=== PATIENT | male | born 1950 | race Caucasian/White ===

== ENCOUNTER 2019-09-27 06:23 | Day surgery (SDC) | payer OTHER, SELFPAY ==
[2019-09-27] VITALS (13 sets, daily range): BP systolic 132–175; BP diastolic 59–98; PULSE 48–71; RESP 12–18; TEMP 36.1–36.7; O2SAT 92–98; BMI 28.1
[2019-09-27] MEDS: sodium chloride 0.9% 1,000 ML 30 ML IV (07:20)
--- NOTE | 2019-09-27 08:13 | ANES.PREANE2 ---
Pre-Anesthetic Assessment Pre-Anesthetic Assessment: Height/Weight: Height 1.78 m Weight 88.904 kg Temp Pulse Resp BP Pulse Ox 98.0 F 64 18 158/98 98 09/27/19 07:07 09/27/19 07:07 09/27/19 07:07 09/27/19 07:07 09/27/19 07:07 Preop Diagnosis: Left inguinal hernia Proposed Procedure: Operation Date: 09/27/19 08:15 Proposed Procedures p Laparoscopic Inguinal Hernia Repair w/Mesh poss open 79547 K40.90(Left) - Prosper Gooden MD Last intake: Intake Last Liquid Date 09/26/19 Last Liquid Time 18:30 Last Solid Date 09/26/19 Last Solid Time 18:30 Social: Social History: Tobacco Pack years: 16 Comment: quit 40 y Exam: Pre-Anes Outpt Exam: alert, oriented x 3, clear to auscultation bilaterally and regular rate & rhythm Airway: Submandibular: WNL Cervical ROM: WNL MP: 1 CV/HEM: CV/HEM: HTN Comments: 2 blocks/2 FOS without angina/[place] Metabolic: Metabolic: Hyperlipidemia Musc/skel: Musc/skel: Lower Back Pain Comments: bilateral radiculopathy Anesthetic Plan: ASA status: 2 Anesthesia: General Meds/Allergies Current Medications: Current Medications Generic Name Dose Route Start Last Admin Trade Name Solomonq PRN Reason Stop Dose Admin Sodium Chloride 1,000 mls @ 30 ml s/hr 09/27/19 06:30 09/27/19 07:20 Sodium Chloride 0.9% IV 09/28/19 06:29 30 mls/hr .Q24H LUANNE Administration PFSH Anesthesia PFSH: Social History Smoking and tobacco status: never smoked Second hand smoke exposure: No Alcohol intake: never Adopted: No Caregiver/support person: No Lives independently: Yes Household members: spouse Housing: House Marital status: service: Yes Current occupational status: retired Current occupational exposures/hazards: No Pets and animals: No History of recent travel: No Sexually active: No Current gender identity: Male Roya/Yazidi: Mandaeism Special roya needs: No Agree to transfusion: No Financial difficulty paying for basics: Decline to Answer Data Anesthesia Cardiac Studies: No Data to Display
--- NOTE | 2019-09-27 08:14 | PM.HPUD ---
H&P update H&P Update: DATE OF SURGERY/PROCEDURE: 09/27/19 DATE H&P PERFORMED: 09/19/19 H&P UPDATE INFORMATION: H&P completed within last 30 days and No changes to prior documentation PREOP DIAGNOSIS: Left inguinal hernia PLANNED PROCEDURE: Operation Date: 09/27/19 08:15 Proposed Procedures p Laparoscopic Inguinal Hernia Repair w/Mesh poss open 33216 K40.90(Left) - Prosper Gooden MD Full H&P Medications/Allergies: Current Medications: Current Medications Generic Name Dose Route Start Last Admin Trade Name Freq PRN Reason Stop Dose Admin Sodium Chloride 1,000 mls @ 30 ml s/hr 09/27/19 06:30 09/27/19 07:20 Sodium Chloride 0.9% IV 09/28/19 06:29 30 mls/hr .Q24H LUANNE Administration Perinent History: Medical/Surgical History: Medical History (Updated 09/19/19 @ 09:14 by Prosper Gooden MD) Hearing loss (Acute) Hyperlipidemia (Acute) Hypertension (Acute) Left inguinal pain (Acute) Family History: Family History (Updated 09/19/19 @ 08:40 by Azalia Clark RN) Denies family history of Anesthesia complication Bleeding disorder Social History: Social History Smoking and tobacco status: never smoked Second hand smoke exposure: No Alcohol intake: never Adopted: No Caregiver/support person: No Lives independently: Yes Household members: spouse Housing: House Marital status: service: Yes Current occupational status: retired Current occupational exposures/hazards: No Pets and animals: No History of recent travel: No Sexually active: No Current gender identity: Male Roya/Scientology: Yarsani Special roya needs: No Agree to transfusion: No Financial difficulty paying for basics: Decline to Answer
[2019-09-27] MEDS: lidocaine 2% INJ 20 mL INJECTION (09:27)
--- NOTE | 2019-09-27 10:24 | P.OP_ITS ---
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 Indications risks benefits and alternatives were all discussed with the Informed consent per chart Procedure: Transabdominal preperitoneal (GABRIELLE) approach. Patient was identified in the holding area ,patient was transferred to the operating room where he was placed in supine position, with both arms were tucked, antibiotic was given with induction, endotracheal tube was placed per anesthesia, Moreland catheter was inserted by the circulating nurse and revealed clear urine, prep and drape of the abdomen was done under the usual sterile technique as well as the scrotal area. Time-out was done verifying the patient's name/date of /planned procedure destination after the procedure, all were in agreement. SCDs confirmed to be functioning, preoperative antibiotics administered per protocol, and beta uday protocol was confirmed. A vertical skin incision of 1.2 cm was made with 11 blade knife through the Infraumbilicus , incision was carried down to the subcutaneous tissue and deepened to identify the anterior fascia, two stay sutures were applied to the fascia, and safe entrance to the abdominal cavity was achieved, a Franks trocar technique safe entry to the abdominal cavity was achieved verified by using 10 mm zero degree laparoscopy, switched to a 30 degrees scope,low flow followed by a higher flow of CO2 gas up to 15 mmHg. There was no evidence of injury to intra-abdominal structures from the port entry, attention was deviated to both groins, there was evidence of pelvic intra-abdominal adhesions Patient was placed in Trendelenburg position then Two 5 mm ports were placed on the right and left lateral aspect of the abdomen slightly above the level of the umbilicus, under direct visualization, anesthesia 2% lidocaine local was injected at all trocar sites prior to incisions. Patient was noticed to have left inguinal hernia and no evidence of hernia on the right side The peritoneum above the level of the iliopubic tract was incised to the right of the midline and dissection was performed to create a preperitoneal space medial to lateral aspect up to anterior superior iliac spine on the left side.Dissection was continued onto the medial aspect and the left spermatic was identified, there was evidence of indirect inguinal hernia .the sac was dissected. As it applied medial to the left inferior epigastric vessels/ dissection was performed to clear the space lateral to the spermatic cord and dorsomedial to it, the hernia sac was reduced and retracted far back there was a small direct hernia component and a large lipoma of the cord that was excised as well and sent for pathology. Then a medial left 3-D mesh large size was rolled and placed into the abdominal cavity through the Franks port, after the mesh was introduced it was positioned to lie in the myopectineal orifice and the mesh was unrolled and this covered the entire my myope pectineal orifice. Intra-abdominal pressure was dropped to 12 mmHg to help placement of the mesh good position On the lateral aspect of the mesh extended up to the anterior superior iliac spine on the medial aspect the mesh crossed the midline onto the right side, then using absorbable tacks, placed above the iliopubic tract onto the rectus abdominis muscle on the medial aspect and also to the lateral abdominal wall superomedial to the sacroiliac spine, then the mesh was also anchored to the pubis and the Zechariah's ligament inferiorly. The peritoneal leaflets were then brought together to cover the mesh and isolated from the other viscera, extra tacks were used to secure the peritoneum in good position. Final look demonstrated good hemostasis and the mesh in good position A total of 20 mL Exparel 40 ml Normal saline 20 ml bupivacaine 0.25% were injected at the remaining of the tacks site and trocar sites as well Final look demonstrated good hemostasis, then the abdomen was desufflated while holding the peritoneum to make sure there is no herniation blue the mesh. All ports were removed. Then the fascia on the supra umbilical fascial defect was closed using 0 Vicryl under direct visualization using fascial closure device Ricardo Maxwell. All skin incisions were closed with 4-0 Monocryl subcuticular suture and Dermabond was applied. The patient tolerated the procedure well, Moreland catheter was taken out ,got extubated and was transferred to the recovery area in stable condition, scrotal support was applied. All counts of instruments, needles and sponges were completed I was present for the whole entire procedure
--- NOTE | 2019-09-27 10:49 | SUR.PHASEI ---
6019 PATIENT TO PACU AT THIS TIME. PATIENT FLAILING ARMS, OPENS EYES TO VERBAL STIMULI. REPORTS PAIN. 3 INCISION TO ABDOMEN, CLOSED WITH EXOFIN. SCROTAL SUPPORT IN PLACE.
[2019-09-27] MEDS: morphine 4 mg/mL SDV 1 mL 2 MG IVP (10:54)
[2019-09-27] MEDS: ondansetron 2 mg/ML SDV 2 mL 4 MG IVP (10:55)
--- NOTE | 2019-09-27 11:22 | SUR.PHASEI ---
1118 PATIENT TO OPS. RATES PAIN 4/10, WANTS TO TAKE A PAIN PILL IN OPS. PATIENT NAUSEA IMPROVED. TOLERATING ICE CHIPS WELL. INCISIONS TO ABDOMEN, CLOSED, CDI. SCROTAL SUPPORT IN PLACE.
[2019-09-27] MEDS: HYDROcodone-acetaminophen 5-325 mg Tablet 1 TAB PO (12:08)
== END 2019-09-27 13:03 | disposition home or self-care (01) ==
PROVIDERS: Family Provider Family Medicine; PCP Nurse Practitioner; Visit Provider Surgery
PROC: (CPT 49650; principal; 2019-09-27 08:15)
DX: K40.90 Unilateral inguinal hernia, without obstruction or gangrene, not specified as recurrent (principal); D17.6 Benign lipomatous neoplasm of spermatic cord; E78.5 Hyperlipidemia, unspecified; Z87.891 Personal history of nicotine dependence; Z79.82 Long term (current) use of aspirin
CPT/HCPCS: 49650; 55559; 12345; 51702; 88304; 96365; C1781; C9290; J0131; J0690; J2001; J2270; J2405; J2704; J2710; J3010; J3490; J7030

== ENCOUNTER 2019-09-27 18:16 | Emergency (ER) | payer OTHER, SELFPAY ==
[2019-09-27 18:45] VITALS: BP 168/93; PULSE 65; RESP 16; TEMP 36.7; O2SAT 95; BMI 27.2
--- NOTE | 2019-09-27 18:55 | ED_ITS ---
Entered by Cisco Lazcano LPN, acting as scribe for Stuart Talavera MD HPI - Male Genitourinary General: Chief complaint: Urogenital-Male Stated complaint: UNABLE TO URINATE, INGUINAL HERNIA REPAIR THIS AM Time Seen by Provider: 09/27/19 18:55 Source: patient Mode of arrival: wheelchair Limitations: no limitations History of Present Illness: HPI Narrative: 69 yo male presents after laparoscopic left inguinal hernia repair earlier today with Dr. Gooden with c/o difficulty voiding. He left the hospital about 1300 this afternoon. The first time he voided after leaving the hospital today there was a large blood clot in his urine. He reports pain with any urination, is only dribbling urine. He has abd discomfort. Complaint: dysuria Associated symptoms: Reports dysuria; Deny nausea or vomiting Review of Systems Const: Denies: fever, chills, body aches or change in appetite Eyes: Denies: blurry vision or eye discomfort ENMT: Denies: throat pain or dental pain Card: Denies: chest pain Resp: Denies: shortness of breath GI: Reports: abdominal pain; Denies: nausea, vomiting or diarrhea : Reports: difficulty urinating, painful urination and urinary dribbling Musc: Denies: neck pain or back pain Skin/Breast: Denies: rash Neuro: Denies: headache Psych: Denies: depression Lior/Lymph: Denies: easy bruising All/Imm: Denies: hives PFSH ED PFSH: Statuses (acute, chronic, etc) shown below reflect problem list status as previously entered and may not be historically accurate Social History Smoking and tobacco status: former smoker Second hand smoke exposure: No Alcohol intake: never Adopted: No Caregiver/support person: No Lives independently: Yes Household members: spouse Housing: House Marital status: service: Yes Current occupational status: retired Current occupational exposures/hazards: No Pets and animals: No History of recent travel: No Sexually active: No Current gender identity: Male Roya/Christian: Hindu Special roya needs: No Agree to transfusion: No Financial difficulty paying for basics: Decline to Answer Physical Exam Const: COMMON NORMALS: no apparent distress, oriented x3 and healthy appearing HENMT: COMMON NORMALS: normocephalic and head/scalp atraumatic HEAD & SCALP: normocephalic and atraumatic Eye: COMMON NORMALS: PERRL and EOMs intact bilaterally PUPIL: Yes PERRL Neck/C-Spine: COMMON NORMALS: full ROM and supple Chest: COMMONS NORMALS: inspection of chest normal and palpation of chest normal Resp: COMMON NORMALS: normal respiratory effort, no retractions, no use of accessory muscles and clear to auscultation bilaterally AUSCULTATION: clear to auscultation bilaterally Cardio: COMMON NORMALS: regular rate, regular rhythm and no murmurs RATE: regular rate RHYTHM: regular rhythm GI: COMMON NORMALS: soft to palpation PALPATION: Yes soft and Yes tender (mild, lower abd) Extremity: COMMON NORMALS: normal to inspection and full ROM Neuro: COMMON NORMALS: oriented x3, moves all extremities and no focal motor deficits Psych: COMMON NORMALS: mental status grossly normal, thought process normal and cooperative THOUGHT PROCESS: normal thought process Skin: COMMON NORMALS: no rashes or lesions noted and no wounds GENERAL SKIN EXAM: no rashes or lesions noted Course Vital Signs: Vital signs: Vital Signs Temperature 98.1 F 09/27/19 18:45 Pulse Rate 59 L 09/27/19 19:49 Respiratory Rate 16 09/27/19 19:49 Blood Pressure 153/75 09/27/19 19:49 Pulse Oximetry 96 09/27/19 19:49 MDM - Male MDM Narrative: Medical decision making narrative: Patient had a large amount of urine after Moreland placement. He feels much improved and has no pain currently. Patient is well-appearing here and abdominal exam is benign. He is stable for discharge and leg bag was placed. He is to follow-up in 2 to 3 days and return if worsening. Patient understands and agrees to the plan. Lab Data: Labs: Lab Results 09/27/19 Range/Units 19:18 Urine Color Yellow (Yellow) Urine Appearance Clear (CLEAR) Urine pH 6.5 (5-7) Ur Specific Gravit y 1.010 (1.005-1.030) Urine Protein Neg (Negative) Urine Glucose (UA) Norm (Normal) Urine Ketones Negative (Negative) Urine Occult Blood 2+ H (Negative) Urine Nitrate Negative (Negative) Urine Bilirubin Neg (NEGATIVE) Urine Urobilinogen Norm (Negative) mg/dL Ur Leukocyte Tania ase Negative (Negative) Urine RBC 15-25 H (0-2) /hpf Urine WBC 0-4 H (0-5) /hpf Ur Squamous Epith Cells None (0-5) Urine Bacteria Trace (NONE) Urine Mucus 1+ Discharge Plan Discharge Patient Disposition: Home, Self-Care Clinical Impression: Acute urinary retention Condition: Stable Prescriptions: No Action losartan 50 mg tablet 25 mg PO BID RF: 0 tramadol 50 mg tablet 50 mg PO QID PRN (Reason: Pain) RF: 0 cholecalciferol (vitamin D3) 2,000 unit tablet 2,000 unit PO QDAY RF: 0 Leary 5-325 mg tablet 1 tab PO Q6H PRN (Reason: pain) Qty: 20 RF: 0 Discharge Orders: Discharge Order (Routine); Ordered 09/27/19 Ordered By: Stuart Talavera Referrals: Kofi Randall MD [Physician] - Bertha Beyer FNP [Primary Care Provider] - Faheem Garcia MD [Family Provider] - Discharge Diet: Advance as tolerated Discharge Activity: Resume usual activity Patient Instructions: Urinary Retention in Men (ED) Discharge Date/Time: 09/27/19 19:59 Coding Level of Care Code ED Dopster for Chg Fwd Exam Problem Focused The documentation recorded by the Jaleesa ross Dani Elizabeth, LPN, accurately reflects the service I personally performed and the decisions made by Ilan loyd Korby, MD Sep 27, 2019 18:16
[2019-09-27 19:22] VITALS: BP 176/97; PULSE 65; RESP 16; O2SAT 96
[2019-09-27 19:31] LABS: Add Urine Microscopic? YES; Bilirubin Urine Neg (NEGATIVE); Blood Urine 2+ (Negative); Glucose Urine UA Norm (Normal); Ketones Urine Negative (Negative); Leukocyte Esterase Urine Negative (Negative); Nitrate Urine Negative (Negative); Protein Urine Neg (Negative); Urine Appearance Clear (CLEAR); Urine Color Yellow (Yellow); Urobilinogen Urine Norm (Negative); pH Urine 6.5 (5-7)
[2019-09-27 19:37] LABS: Add Urine Culture? Yes; Bacteria Urine TRACE; Mucus Urine 1+; RBC Urine 15-25 /hpf (0-2); WBC Urine 0-4 /hpf (0-5)
--- NOTE | 2019-09-27 19:48 | PC.NURSE ---
patient changed from floyd to leg bad per Dr. Talavera order
[2019-09-27 19:49] VITALS: BP 153/75; PULSE 59; RESP 16; O2SAT 96
--- NOTE | 2019-09-30 08:47 | DCPLANNER ---
booking manager had message to schedule a follow up appointment for patient with Dr. Randall. booking manager called the office of Dr. Randall, spoke with Kena, gave clinic patients information. booking manager was told that patients information would be printed and given to Joselin for review. booking manager [facility], and informed her that the patient needed a followup appointment with Dr. Randall. booking manager was told that the consult had been placed and the [facility] should be calling to [facility] an appointment. booking manager called Dr. Carrillo office and let them know that the [facility] should [facility] calling to schedule that appointment.
--- NOTE | 2019-10-11 10:18 | DCPLANNER ---
Patient has a follow up appointment scheduled for , October 13, 2019 at 2:15, patient is aware of appointment.
--- NOTE | 2019-10-27 09:28 | DCPLANNER ---
Patient attended appointment scheduled for 10.13.[address] Randall.
== END 2019-09-27 19:59 | disposition home or self-care (01) ==
PROVIDERS: Emergency Provider Emergency Medicine; Family Provider Family Medicine; PCP Nurse Practitioner
DX: R33.9 Retention of urine, unspecified (principal); Z87.891 Personal history of nicotine dependence
CPT/HCPCS: 51702; 81001; 87086; 99282; 99283

== ENCOUNTER 2019-10-04 09:45 | Outpatient (CLI) | payer OTHER, SELFPAY | END 2019-10-04 09:46 | disposition home or self-care (01) | LOC: LAB 09:48 | PROVIDERS: Family Provider Family Medicine; PCP Nurse Practitioner; Visit Provider Surgery | DX: Z76.89 Persons encountering health services in other specified circumstances (principal) ==

== ENCOUNTER → 2019-10-13 14:29 | Outpatient (BNVA) | payer OTHER, SELFPAY | PROVIDERS: Family Provider Family Medicine; PCP Nurse Practitioner; Visit Provider Nurse Practitioner Family | DX: R33.9 Retention of urine, unspecified (principal); Z80.42 Family history of malignant neoplasm of prostate | CPT/HCPCS: 81001 ==

== ENCOUNTER → 2020-02-15 13:51 | Outpatient (BNVA) | payer OTHER, SELFPAY | PROVIDERS: Family Provider Family Medicine; PCP Nurse Practitioner; Visit Provider Urology | DX: Z80.42 Family history of malignant neoplasm of prostate (principal); R33.9 Retention of urine, unspecified | CPT/HCPCS: 81001 ==

== ENCOUNTER 2020-10-30 12:00 | Emergency (ER) | payer OTHER, MEDICARE, SELFPAY ==
[2020-10-30 12:05] VITALS: BP 145/85; PULSE 103; RESP 18; TEMP 36.6; O2SAT 98; BMI 28.5
--- NOTE | 2020-10-30 12:15 | CT_ITS ---
WS: [id number] CT ABDOMEN PELVIS TECHNIQUE: Contrast-enhanced CT of the abdomen and pelvis with coronal and sagittal reformatted image s. CLINICAL INFORMATION: abd pain COMPARISON: None. DLP: 1673.[address] scans at [facility] use at least one of these dose optimization techniques: automat ed exposure control; mA and/or kV adjustment per patient size (includes targeted exams where dose is matched to clinical indication); or iterative reconstruction. FINDINGS: Lung bases are well aerated. Normal liver. Normal portal vein and splenic vein. Normal gallbladder. N ormal spleen. Small esophageal hiatal hernia. Adrenal glands are normal. Normal renal parenchymal enh ancement. No hydronephrosis. Small left renal cyst measuring 9.4 mm. Additional lower pole left renal cyst measuring 17 mm. Normal pancreas. Splenic artery calcification. Normal caliber abdominal aorta. Aortic calcification. No abdominal lymphadenopathy. Enlarged prostate with calcification measuring 4.7 CM. Sigmoid diverticulosis. Mild diffuse thickenin g of the sigmoid colon with mild induration consistent with mild acute diverticulitis. No drainable a bscess or fluid collection. No evidence of bowel obstruction. Tiny fat-containing umbilical hernia. CT/CT abdomen pelvis w con* [id number] IMPRESSION: 1. Sigmoid diverticulosis with mild sigmoid thickening consistent with mild or early acute diverticulitis. 2. No drainable abscess or fluid collection. 3. Enlarged prostate measuring 4.7 CM. Recommend correlation PSA. Notified Zhang Vazquez DO at 10/30/2020 2:14 PM.
[2020-10-30 12:26] VITALS: BP 163/106; PULSE 91; RESP 15; O2SAT 94
--- NOTE | 2020-10-30 12:31 | W.ED.GIBLEED ---
HPI - GI Bleed General: Chief complaint: GI Bleed Stated complaint: ABD PAIN/BLOOD IN STOOL/HERE YESTERDAY Time Seen by Provider: 10/30/20 12:13 History of Present Illness: HPI Narrative: 70 year old male presents to the ED with a 4 day history of blood in stool that began 6 days ago. He states his bowel movements are solid with melena. He states he also had some abdominal tenderness during these episodes. He denies any NSAID use or vomiting. He denies any abdominal pain at this time. He states his last colonoscopy was 10 years at [place] with findings of a benign polyp. He states having chest tightness while doing mild exertional work this morning that radiated into both shoulders. Chest pain not present at time of visit. MD complaint: melena and blood streaked stool (10/24-10/27) Onset (ago): day(s) Pain Consistency: now resolved Associated symptoms: Reports abdominal pain (during episodes); Denies fever(s), headache(s), nausea, rash or vomiting Review of Systems Const: Denies: fever(s) ENMT: Denies: throat pain, ear or mastoid pain, nasal discharge or nasal congestion Card: Reports: chest pain (chest tightness this morning with exertion, resolved now) Resp: Denies: dyspnea, productive cough or non-productive cough GI: Reports: abdominal pain (during episodes); Denies: nausea or vomiting : Denies: flank pain, dysuria, urinary frequency or urinary urgency Skin/Breast: Denies: rash or pruritus Neuro: Denies: headache(s) [facility] ED PFSH: Medical History (Updated 10/30/20 @ 14:17 by Zhang Vazquez DO) Family history of prostate cancer Hearing loss Hyperlipidemia Hypertension Left inguinal pain Family History Denies family history of Anesthesia complication Bleeding disorder Social History Smoking and tobacco status: former smoker Second hand smoke exposure: No Alcohol intake: never Adopted: No Caregiver/support person: No Lives independently: Yes Household members: spouse Housing: House Marital status: service: Yes Current occupational status: retired Current occupational exposures/hazards: No Pets and animals: No History of recent travel: No Sexually active: No Current gender identity: Male Roya/Church: [employer] Special roya needs: No Agree to transfusion: No Financial difficulty paying for basics: Decline to Answer Physical Exam Const: COMMON NORMALS: no acute distress GENERAL APPEARANCE: cooperative and comfortable ORIENTATION/CONSCIOUSNESS: Yes awake, Yes oriented to person, Yes oriented to place and Yes oriented to time HENMT: COMMON NORMALS: normocephalic, atraumatic and hearing grossly normal bilaterally HEAD & SCALP: normocephalic and atraumatic Resp: COMMON NORMALS: normal respiratory effort, No retractions, No use of accessory muscles and clear to auscultation bilaterally AUSCULTATION: clear to auscultation bilaterally Cardio: COMMON NORMALS: regular rate, regular rhythm and No murmurs present (Cardio) RATE: regular rate RHYTHM: regular rhythm GI: COMMON NORMALS: Soft to palpation AUSCULTATION: Yes normoactive bowel sounds PALPATION: Yes Soft to palpation, No Tenderness to palpation present (GI) and No Guarding due to palpation present (GI) Extremity: COMMON NORMALS: normal to inspection, no clubbing, cyanosis or edema and no pedal edema Neuro: SENSORIUM/ORIENTATION: Yes oriented to person, Yes oriented to place and Yes oriented to time Skin: COMMON NORMALS: no rashes or lesions noted GENERAL SKIN EXAM: no rashes or lesions noted Course Vital Signs: Vital signs: Vital Signs Temperature 97.9 F 10/30/20 12:05 Pulse Rate 99 10/30/20 13:57 Respiratory Rate 19 H 10/30/20 13:57 Blood Pressure 169/103 10/30/20 13:57 Pulse Oximetry 95 10/30/20 13:57 MDM - GI Bleed MDM Narrative: Medical decision making narrative: Mild diverticulitis on CT no sign of obstruction no perforation. We will treat as an outpatient his hemoglobin is stable. He is in relatively good physical condition for his age he should consider getting a repeat colonoscopy given his history of previous colon polyps and now this diverticulitis we will set him up for general surgery clear liquid diet for 24 to 48 hours and advance as tolerated Lab Data: Labs: Lab Results 10/30/20 10/30/20 10/30/20 Range/Units 12:26 12:26 12:26 WBC 8.2 (4.0-10.0) 10^3/ uL RBC 4.85 (4.1-5.3) 10^6/u L Hgb 14.5 (11.7-16.6) g/dL Hct 43.8 (42.0-52.0) % MCV 90.3 (80-94) fL MCH 29.9 (28.0-34.0) pg MCHC 33.1 (30.0-36.0) g/dL RDW 12.3 (12.1-15.1) % Plt Count 369 (130-400) 10^3/c mm MPV 8.5 (7.4-10.4) fL Neut % (Auto) 66.3 % Lymph % (Auto) 25.2 % [place]ville % (Auto) 6.0 % Eos % (Auto) 1.7 % Baso % (Auto) 0.6 % Neut # (Auto) 5.43 (1.8-7.7) 10^3/u L Lymph # (Auto) 2.1 (0.8-4.8) 10^3/u L [place] # (Auto) 0.5 (0.2-0.9) 10^3/u L Eos # (Auto) 0.1 (0.0-0.8) 10^3/u L Baso # (Auto) 0.1 (0.0-0.1) 10^3/u L Nucleated RBC % (a uto) 0 % Nucleated RBCs # 0.0 /100WBC PT 14.20 (12.1-14.9) SECO NDS INR 1.06 (0.8-1.2) APTT 30.8 (23.9-36.7) SECO NDS Sodium 137 (136-145) mmol/L Potassium 4.3 (3.5-5.1) mmol/L Chloride 101 (98-107) mmol/L Carbon Dioxide 27 (22-29) mmol/L Anion Gap 13.3 (5-19) BUN 15 (8-23) mg/dL Creatinine 0.8 (0.7-1.2) mg/dL GFR Calculation 95.6 (90-130) mL/min Glucose 96 (65-115) mg/dL Calculated Osmolal ity 285 (285-295) mOsm/k g Calcium 9.9 (8.5-10.5) mg/dL Total Bilirubin 0.5 (0.15-1.2) mg/dL AST 22 (0-40) U/L ALT 20 (0-41) U/L Alkaline Phosphata se 92 (40-130) IU/L Total Protein 8.3 (6.6-8.7) g/dL Albumin 4.3 (3.5-5.2) g/dL Globulin 4.0 (1.3-4.6) g/dL Urine Color (Yellow) Urine Appearance (CLEAR) Urine pH (5-7) Ur Specific Gravit y (1.005-1.030) Urine Protein (Negative) Urine Glucose (UA) (Normal) Urine Ketones (Negative) Urine Blood (Negative) Urine Nitrate (Negative) Urine Bilirubin (Negative) Urine Urobilinogen (Negative) mg/dL Ur Leukocyte Tania ase (Negative) Urine RBC (0-2) /hpf Urine WBC (0-5) /hpf Ur Squamous Epith Cells (0-5) /hpf Amorphous Sediment /hpf Urine Bacteria (NONE) /hpf 10/30/20 Range/Units 13:28 WBC (4.0-10.0) 10^3/ uL RBC (4.1-5.3) 10^6/u L Hgb (11.7-16.6) g/dL Hct (42.0-52.0) % MCV (80-94) fL MCH (28.0-34.0) pg MCHC (30.0-36.0) g/dL RDW (12.1-15.1) % Plt Count (130-400) 10^3/c mm MPV (7.4-10.4) fL Neut % (Auto) % Lymph % (Auto) % Granville % (Auto) % Eos % (Auto) % Baso % (Auto) % Neut # (Auto) (1.8-7.7) 10^3/u L Lymph # (Auto) (0.8-4.8) 10^3/u L [place]ville # (Auto) (0.2-0.9) 10^3/u L Eos # (Auto) (0.0-0.8) 10^3/u L Baso # (Auto) (0.0-0.1) 10^3/u L Nucleated RBC % (a uto) % Nucleated RBCs # /100WBC PT (12.1-14.9) SECO NDS INR (0.8-1.2) APTT (23.9-36.7) SECO NDS Sodium (136-145) mmol/L Potassium (3.5-5.1) mmol/L Chloride (98-107) mmol/L Carbon Dioxide (22-29) mmol/L Anion Gap (5-19) BUN (8-23) mg/dL Creatinine (0.7-1.2) mg/dL GFR Calculation (90-130) mL/min Glucose (65-115) mg/dL Calculated Osmolal ity (285-295) mOsm/k g Calcium (8.5-10.5) mg/dL Total Bilirubin (0.15-1.2) mg/dL AST (0-40) U/L ALT (0-41) U/L Alkaline Phosphata se (40-130) IU/L Total Protein (6.6-8.7) g/dL Albumin (3.5-5.2) g/dL Globulin (1.3-4.6) g/dL Urine Color Yellow (Yellow) Urine Appearance Hazy A (CLEAR) Urine pH 6.5 (5-7) Ur Specific Gravit y 1.015 (1.005-1.030) Urine Protein Neg (Negative) Urine Glucose (UA) Norm (Normal) Urine Ketones Negative (Negative) Urine Blood Neg (Negative) Urine Nitrate Negative (Negative) Urine Bilirubin Neg (Negative) Urine Urobilinogen Norm (Negative) mg/dL Ur Leukocyte Tania ase Negative (Negative) Urine RBC None (0-2) /hpf Urine WBC 0-4 H (0-5) /hpf Ur Squamous Epith Cells 0-4 H (0-5) /hpf Amorphous Sediment 2+ /hpf Urine Bacteria 1+ H (NONE) /hpf Discharge Plan Discharge Patient Disposition: Home Clinical Impression: Diverticulitis, History of colon polyps Condition: Stable Prescriptions: New Augmentin 875-125 mg tablet 1 tab PO BID Qty: 20 RF: 0 No Action saw palmetto 450 mg capsule 450 mg PO BID@0700,2100 RF: 0 EyeProtect 7,160-113-100 etoo-vp-ymta tablet 1 tab PO DAILY@1700 RF: 0 red yeast rice 600 mg capsule 600 mg PO BID@0700,2100 RF: 0 losartan 50 mg tablet 25 mg PO BID@0700,2100 RF: 0 tramadol 50 mg tablet 50 mg PO QID@07,12,17,21 PRN (Reason: Pain) RF: 0 cholecalciferol (vitamin D3) 2,000 unit tablet 2,000 unit PO DAILY@0700 RF: 0 Discharge Orders: Discharge ED (Routine); Ordered 10/30/20 Ordered By: Zhang Vazquez Referrals: Bertha Beyer FNP [Primary Care Provider] - Discharge Diet: Clear Liquid Discharge Activity: Resume usual activity Patient Instructions: Opioid Safety Activity Restrictions/Additional Instructions: Liquid diet for 24 to 48 hours advance as tolerated. Case management will call to make arrangements for her to see a surgeon you should have a repeat colonoscopy in the next 8 to 10 weeks. Coding Level of Care Code ED Wild Life Manager for Jac Fwd Exam Detailed
[2020-10-30 12:32] LABS: Basophils # 0.1 10^3/uL (0.0-0.1); Basophils % 0.6 %; Eosinophils # 0.1 10^3/uL (0.0-0.8); Eosinophils % 1.7 %; Hematocrit 43.8 % (42.0-52.0); Hemoglobin 14.5 g/dL (11.7-16.6); Lymphocytes # 2.1 10^3/uL (0.8-4.8); Lymphocytes % 25.2 %; Mean Corpuscular HGB Conc 33.1 g/dL (30.0-36.0); Mean Corpuscular Hemoglobin 29.9 pg (28.0-34.0); Mean Corpuscular Volume 90.3 fL (80-94); Mean Platelet Volume 8.5 fL (7.4-10.4); Monocytes # 0.5 10^3/uL (0.2-0.9); Neutrophils # 5.43 10^3/uL (1.8-7.7); Neutrophils % 66.3 %; Nucleated Red Blood Cells % 0 %; Platelet Count 369 10^3/cmm (130-400); Red Blood Count 4.85 10^6/uL (4.1-5.3); Red Cell Distribution Width 12.3 % (12.1-15.1); White Blood Count 8.2 10^3/uL (4.0-10.0)
[2020-10-30 12:43] LABS: INR 1.06 (0.8-1.2)
[2020-10-30 12:44] LABS: Partial Thromboplastin Time 30.8 SECONDS (23.9-36.7)
[2020-10-30 12:49] LABS: Alanine Aminotransferase 20 U/L (0-41); Albumin Level 4.3 g/dL (3.5-5.2); Alkaline Phosphatase 92 IU/L (40-130); Anion Gap 13.3 (5-19); Aspartate Amino Transferase 22 U/L (0-40); Blood Urea Nitrogen 15 mg/dL (8-23); Calcium 9.9 mg/dL (8.5-10.5); Carbon Dioxide 27 mmol/L (22-29); Chloride 101 mmol/L (98-107); Glomerular Filtration Rate 95.6 mL/min (90-130); Glucose 96 mg/dL (65-115); Osmolality Calculated 285 mOsm/kg (285-295); Potassium 4.3 mmol/L (3.5-5.1); Sodium 137 mmol/L (136-145); Total Bilirubin 0.5 mg/dL (0.15-1.2); Total Protein 8.3 g/dL (6.6-8.7)
[2020-10-30 13:44] LABS: Add Urine Microscopic? YES; Bilirubin Urine Neg (Negative); Blood Urine Neg (Negative); Glucose Urine UA Norm (Normal); Ketones Urine Negative (Negative); Leukocyte Esterase Urine Negative (Negative); Nitrate Urine Negative (Negative); Protein Urine Neg (Negative); Specific Gravity, Urine 1.015 (1.005-1.030); Urine Appearance Hazy (CLEAR); Urine Color Yellow (Yellow); Urobilinogen Urine Norm (Negative); pH Urine 6.5 (5-7)
[2020-10-30] MEDS: iohexol 300 mg/mL 100 mL Btl IV (13:53)
[2020-10-30 13:56] LABS: Add Urine Culture? No; Amorphous Sediment Urine 2+ /hpf; Bacteria Urine 1+ /hpf; Squamous Epithelial Cell Urine 0-4 /hpf (0-5); WBC Urine 0-4 /hpf (0-5)
[2020-10-30 13:57] VITALS: BP 169/103; PULSE 99; RESP 19; O2SAT 95
[2020-10-30 14:23] VITALS: BP 148/87; PULSE 77; RESP 12; O2SAT 95
== END 2020-10-30 14:23 | disposition home or self-care (01) ==
PROVIDERS: Emergency Provider Family Medicine; PCP Nurse Practitioner
DX: K57.92 Diverticulitis of intestine, part unspecified, without perforation or abscess without bleeding (principal); Z86.010 Personal history of colon polyps; E78.5 Hyperlipidemia, unspecified; I10 Essential (primary) hypertension; Z87.891 Personal history of nicotine dependence; Z80.42 Family history of malignant neoplasm of prostate
CPT/HCPCS: 74177; 80053; 81001; 85025; 85610; 85730; 99283; Q9967

== ENCOUNTER → 2021-01-22 11:22 | Outpatient (BNVA) | payer OTHER, SELFPAY | PROVIDERS: PCP Nurse Practitioner; Visit Provider Internal Medicine | DX: Z01.812 Encounter for preprocedural laboratory examination (principal); Z20.822 Contact with and (suspected) exposure to COVID-19 | CPT/HCPCS: 87635 ==

== ENCOUNTER 2021-01-28 08:40 | Day surgery (SDC) | payer OTHER, SELFPAY ==
[2021-01-24 16:06] VITALS: BMI 25.1
--- NOTE | 2021-01-28 08:38 | P.HP_ITS ---
Same Day Surgery H&P Indication for Procedure/HPI DATE OF PROCEDURE: January 28, 2021 CHIEF COMPLAINT/INDICATIONFOR SURGICAL PROCEDURE: History of colon polyps. PREOP DIAGNOSIS: Left inguinal hernia PLANNED PROCEDRUE: Operation Date: 01/28/21 10:00 Proposed Procedures p Colonoscopy 35633 K92.1(Not Applicable) - Moiz Patiño MD Medications/Allergies* Home Medications Medication Instructions Recorded Confirmed Type cholecalciferol (vitamin D3) 50 2,000 unit PO DAILY@0700 09/16/19 01/24/21 History mcg (2,000 unit) tablet losartan 50 mg tablet 25 mg PO BID@0700,2100 tab 09/16/19 01/24/21 History tramadol 50 mg tablet 50 mg PO QID@07,12,, PRN tab 09/16/19 01/24/21 History saw palmetto 450 mg capsule 450 mg PO BID@0700,2100 10/13/19 01/24/21 History vit A 7,160 unit-vit C 113 mg-vit 1 tab PO DAILY@1700 10/13/19 01/24/21 History E 100 ahlm-ynpd-kenzhy tablet red yeast rice 600 mg capsule 600 mg PO BID@0700,2100 02/15/20 01/24/21 History Allergies/Adverse Reactions Allergy/AdvReac Type Severity Reaction Status Date / Time aspirin Allergy ADR-Nose Verified 01/24/21 16:03 Bleed atorvastatin Allergy Unknown Verified 01/24/21 16:03 bee venom protein (honey bee) Allergy Unknown Verified 01/24/21 16:03 Pertinent History/Comorbid Conditions* Medical History (Updated 12/17/20 @ 15:27 by Moiz Patiño MD) Family history of prostate cancer Hearing loss Hyperlipidemia Hypertension Left inguinal pain Family History (Updated 09/19/19 @ 08:40 by Azalia Clark RN) Denies family history of Anesthesia complication Bleeding disorder Social History Smoking and tobacco status: former smoker Second hand smoke exposure: No Alcohol intake: never Adopted: No Caregiver/support person: No Lives independently: Yes Household members: spouse Housing: House Marital status: service: Yes Current occupational status: retired Current occupational exposures/hazards: No Pets and animals: No History of recent travel: No Sexually active: No Current gender identity: Male Roya/Sikh: Sikhism Special roya needs: No Agree to transfusion: No Financial difficulty paying for basics: Decline to Answer Pertinent Exam Findings alert, oriented x 3, clear to auscultation bilaterally, regular rate & rhythm, operative site marked and procedure specific exam findings Recommendations Surgery/Procedure today Coding Level of Care Code Acute Factory Lay Out 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
--- NOTE | 2021-01-28 08:56 | ANES.PREANE2 ---
Pre-Anesthetic Assessment Pre-Anesthetic Assessment: Height/Weight: Height 1.8 m Weight 81.647 kg Preop Diagnosis: h Proposed Procedure: Operation Date: 01/28/21 10:00 Proposed Procedures p Colonoscopy 47239 K92.1(Not Applicable) - Moiz Patiño MD Was Beta Regino taken within 24 hours: N/A Was Clonidine taken within 24 hours: N/A Social: Social History: No alcohol and No tobacco Exam: Pre-Anes Outpt Exam: alert, oriented x 3, clear to auscultation bilaterally and regular rate & rhythm Airway: Submandibular: WNL Cervical ROM: WNL MP: 2 Dentition: False CV/HEM: CV/HEM: HTN Musc/skel: Musc/skel: Lower Back Pain Anesthetic Plan: ASA status: 2 Anesthesia: MAC Risk of > 500 ml blood loss (7ml/kg in children): No PFSH Anesthesia PFSH: Medical History (Updated 12/17/20 @ 15:27 by Moiz Patiño MD) Family history of prostate cancer Hearing loss Hyperlipidemia Hypertension Left inguinal pain Family History Denies family history of Anesthesia complication Bleeding disorder Social History Smoking and tobacco status: former smoker Second hand smoke exposure: No Alcohol intake: never Adopted: No Caregiver/support person: No Lives independently: Yes Household members: spouse Housing: House Marital status: service: Yes Current occupational status: retired Current occupational exposures/hazards: No Pets and animals: No History of recent travel: No Sexually active: No Current gender identity: Male Roya/Alevism: Evangelical Special roya needs: No Agree to transfusion: No Financial difficulty paying for basics: Decline to Answer Data Anesthesia Cardiac Studies: No Data to Display
[2021-01-28 09:03] VITALS: BP 134/99; PULSE 94; RESP 18; TEMP 36.1; O2SAT 96
[2021-01-28] MEDS: sodium chloride 0.9% 1,000 ML 30 ML IV (09:29)
[2021-01-28 10:08] VITALS: BP 111/71; PULSE 76; RESP 18; TEMP 36.5; O2SAT 96
[2021-01-28 10:18] VITALS: BP 116/68; PULSE 62; RESP 18; O2SAT 96
--- NOTE | 2021-01-28 13:35 | ANE.PACU2 ---
Inpatient post-anesthesia follow up: Airway intact: Yes Vital signs: Temperature 97.7 F Pulse Rate 62 Respiratory Rate 18 Blood Pressure 116/68 Pulse Oximetry 96 Oxygen Delivery Me thod Room Air Oxygen Flow Rate Fraction of Inspir ed Oxygen Hydration adequate: Yes Nausea and vomiting: No Pain level: 1 Mental status: Baseline
== END 2021-01-28 10:31 | disposition home or self-care (01) ==
PROVIDERS: PCP Family Medicine; Visit Provider Internal Medicine
PROC: 0DJD8ZZ Inspection of Lower Intestinal Tract, Via Natural or Artificial Opening Endoscopic (ICD-10-PCS; CPT 45378; principal; 2021-01-28 10:00)
DX: D12.8 Benign neoplasm of rectum (principal); K57.30 Diverticulosis of large intestine without perforation or abscess without bleeding; Z86.010 Personal history of colon polyps; I10 Essential (primary) hypertension; Z80.42 Family history of malignant neoplasm of prostate; E78.5 Hyperlipidemia, unspecified; Z87.891 Personal history of nicotine dependence
CPT/HCPCS: 45380; 88305; 96360; J2704; J7030

== ENCOUNTER 2021-11-10 01:50 | Emergency (ER) | payer OTHER, MEDICARE, SELFPAY ==
[2021-11-10 01:58] VITALS: BP 161/94; PULSE 87; RESP 16; TEMP 36.7; O2SAT 91; BMI 26.2
--- NOTE | 2021-11-10 02:02 | ECG_ITS ---
[facility] Test Date: 2021-11-10 Pat Name: Huber Green Department: Room: Gender: Male Oil Mixer: : 1950 Requested By: Yung Fuentes Order Number: [id number] Jim MD: Pernell Townsend M.D. Measurements Intervals [place] Rate: 84 P: 48 CA: 177 QRS: -36 QRSD: 102 T: 54 QT: 392 QTc: 464 Interpretive Statements SINUS RHYTHM WITH FREQUENT VENTRICULAR PREMATURE COMPLEXES POSSIBLE LEFT ATRIAL ENLARGEMENT [-0.1mV P-WAVE IN V1/V2] LEFT AXIS DEVIATION [QRS AXIS < -30] POSSIBLE RIGHT VENTRICULAR CONDUCTION DELAY [RSR (QR) IN V1/V2] POSSIBLE LEFT VENTRICULAR HYPERTROPHY [VOLTAGE CRITERIA PLUS LAE OR QRS WIDENING] POSSIBLE SEPTAL MYOCARDIAL INFARCTION , OF INDETERMINATE AGE [30 ms Q WAVE IN V1/V2] No previous ECG available for comparison Electronically Signed On 11-11-2021 9:01:20 CDT by Pernell Townsend M.D. [id number]
--- NOTE | 2021-11-10 02:02 | XRR_ITS ---
PROCEDURE INFORMATION: Exam: XR Chest Exam date and time: 11/10/2021 2:47 AM Age: 71 years old Clinical indication: Dyspnea; Additional info: SOB TECHNIQUE: Imaging protocol: XR of the chest. Views: 1 view. COMPARISON: CR Chest 2 views* [id number] 08/25/2016 10:23 AM FINDINGS: Lungs: Patchy bibasilar airspace opacities. Mild interstitial pulmonary edema. Pleural spaces: Small left pleural effusion. No pneumothorax. Heart/Mediastinum: Unremarkable. No cardiomegaly. Bones/joints: Unremarkable. XR/XR chest 1V portable [id number] IMPRESSION: 1. Patchy bibasilar airspace opacities may reflect atelectasis versus pneumonia. 2. Mild interstitial pulmonary edema with small left pleural effusion.
[2021-11-10 03:27] LABS: Basophils % 0.3 %; Eosinophils # 0.1 10^3/uL (0.0-0.8); Eosinophils % 0.5 %; Hemoglobin 13.5 g/dL (11.7-16.6); Lymphocytes # 1.3 10^3/uL (0.8-4.8); Lymphocytes % 12.8 %; Mean Corpuscular HGB Conc 33.8 g/dL (30.0-36.0); Mean Corpuscular Hemoglobin 29.7 pg (28.0-34.0); Mean Corpuscular Volume 88.1 fl (80-94); Mean Platelet Volume 9.6 fL (7.4-10.4); Monocytes # 0.5 10^3/uL (0.2-0.9); Monocytes % 5.1 %; Neutrophils # 7.92 10^3/uL (1.8-7.7); Nucleated Red Blood Cells % 0 %; Platelet Count 296 10^3/cmm (130-400); Red Blood Count 4.54 10^6/uL (4.1-5.3); Red Cell Distribution Width 12.6 % (12.1-15.1); White Blood Count 9.8 10^3/uL (4.0-10.0)
[2021-11-10 03:39] LABS: D Dimer <= 0.27 ug/mIFEU (0-0.59)
[2021-11-10 03:46] LABS: Troponin T (5th) Once 17 ng/L (0-15)
[2021-11-10 03:52] LABS: NT Pro B Type Natriuretic Pept 2690 pg/mL (0-125); Procalcitonin 0.05 ng/mL (0-0.5)
[2021-11-10 04:08] LABS: Alanine Aminotransferase 14 U/L (0-41); Alkaline Phosphatase 78 IU/L (40-130); Aspartate Amino Transferase 16 U/L (0-40); Blood Urea Nitrogen 18 mg/dL (8-23); C Reactive Protein 31.5 mg/L (0.0-4.9); Calcium 9.8 mg/dL (8.5-10.5); Carbon Dioxide 21 mmol/L (22-29); Chloride 105 mmol/L (98-107); Globulin 3.3 g/dL (1.3-4.6); Glucose 120 mg/dL (65-115); Osmolality Calculated 283 mOsm/kg (285-295); Sodium 135 mmol/L (136-145); Total Bilirubin 0.8 mg/dL (0.15-1.2); Total Protein 7.3 g/dL (6.6-8.7)
--- NOTE | 2021-11-10 04:17 | W.ED.SOB ---
HPI - SOB/Dyspnea General: Chief Complaint: Shortness of Breath/Dyspnea Stated Complaint: CP, SOB Time Seen by Provider: 11/10/21 02:05 Source: patient and family History of Present Illness: HPI Narrative: 71-year-old male with no prior history of coronary disease or other heart disease. He presents stating that he has had chest tightness and shortness of breath last night and this morning. He notes that he was working out in the cold wet air, and began to get some mild chest tightness then. It seemed to go away. It came back last night, so much so that the patient could not sleep. He has had a mild cough. No fever. No leg swelling. His chest feels tight. No radiation of the pain. MD elicited complaint: shortness of breath, cough and chest pain Pertinent past history: other Onset (ago): hour(s) Context: occurred during exertion Timing: constant Severity: moderate Exacerbating factors: lying flat, exertion and coughing Associated symptoms: Reports chest pain, cough and nausea; Deny abdominal pain, chest congestion, diaphoresis, dizziness, extremity pain, fever(s), hemoptysis, syncope or vomiting Review of Systems Const: Denies: fever(s) or diaphoresis Card: Reports: chest pain; Denies: syncope Resp: Reports: dyspnea and non-productive cough; Denies: hemoptysis or chest congestion GI: Reports: nausea; Denies: abdominal pain or vomiting Musc: Denies: extremity pain Neuro: Denies: dizziness PFS ED PFSH: Medical History (Updated 11/10/21 @ 06:33 by Yung Denise DO) Family history of prostate cancer Hearing loss Hyperlipidemia Hypertension Left inguinal pain Family History Denies family history of Anesthesia complication Bleeding disorder Social History Smoking and tobacco status: former smoker Second hand smoke exposure: No Alcohol intake: never Adopted: No Caregiver/support person: No Lives independently: Yes Household members: spouse Housing: House Marital status: service: Yes Current occupational status: retired Current occupational exposures/hazards: No Pets and animals: No History of recent travel: No Sexually active: No Current gender identity: Male Roya/Pentecostal: Sikhism Special roya needs: No Agree to transfusion: No Financial difficulty paying for basics: Decline to Answer Physical Exam Const: GENERAL APPEARANCE: cooperative NUTRITIONAL APPEARANCE: thin HENMT: COMMON NORMALS: normocephalic, atraumatic and Normal external nose present HEAD & SCALP: normocephalic and atraumatic FACE & SINUS: normal facial exam, sinuses nontender and face symmetric NOSE: Normal external nose present Eye: COMMON NORMALS: Equal, round and reactive pupils present and EOMs intact bilaterally PUPIL: Yes Equal, round and reactive pupils present Chest: COMMONS NORMALS: normal inspection of the chest Resp: COMMON NORMALS: normal respiratory effort, No use of accessory muscles and clear to auscultation bilaterally AUSCULTATION: clear to auscultation bilaterally Cardio: COMMON NORMALS: regular rate and regular rhythm RATE: regular rate RHYTHM: regular rhythm GI: COMMON NORMALS: Normal to inspection, nondistended, normoactive bowel sounds present, Soft to palpation and non-tender PALPATION: Yes Soft to palpation Extremity: COMMON NORMALS: no pedal edema Neuro: MARGIE COMA SCALE: document GCS findings Margie coma scale eye opening: Spontaneous Cecil coma scale verbal response: Orientated Margie coma scale motor response: Obey commands Cecil coma scale total score: 15 Course Vital Signs: Vital signs: Vital Signs Temperature 98.1 F 11/10/21 01:58 Pulse Rate 63 11/10/21 05:35 Respiratory Rate 16 11/10/21 05:35 Blood Pressure 141/92 11/10/21 05:35 Pulse Oximetry 94 11/10/21 05:35 MDM - SOB/Dyspnea Medical Decision Making Patient with significant shortness of breath and some chest tightness. Room air oxygen saturation is 92%. EKG shows a sinus rhythm with frequent PVCs. Henderson is normal otherwise. No acute ST elevation. Blood pressure is 111/77. Heart rate is 70. Chest x-ray shows pulmonary vascular congestion with small effusions bilaterally. BNP is elevated at 2600. First troponin is minimally elevated. Will await a 2-hour. Hemoglobin is 13.5, white blood cell count 9.8. COVID-19 PCR is pending. Patient was given IV Lasix. He has diuresed well over a liter. Oxygen saturation is a bit better. He was given the option of admission, but wishes to go home. His second troponin did not elevate. He will be set up with an outpatient stress test. Placed on diuretics for the next 3 days. Also be covered with doxycycline, as is x-ray was questionable in terms of potential infiltrates. COVID-19 is negative. He understands warning signs and reasons for return. Lab Data : 11/10/21 03:13 11/10/21 03:13 Labs/Radiology: Radiology Impressions Chest X-Ray 11/10/21 02:02 IMPRESSION: 1. Patchy bibasilar airspace opacities may reflect atelectasis versus pneumonia. 2. Mild interstitial pulmonary edema with small left pleural effusion. Laboratory Results WBC 9.8 10^3/uL (4.0-10.0) 11/10/21 03:13 RBC 4.54 10^6/uL (4.1-5.3) 11/10/21 03:13 Hgb 13.5 g/dL (11.7-16.6) 11/10/21 03:13 Hct 40.0 % (42.0-52.0) L 11/10/21 03:13 MCV 88.1 fl (80-94) 11/10/21 03:13 MCH 29.7 pg (28.0-34.0) 11/10/21 03:13 MCHC 33.8 g/dL (30.0-36.0) 11/10/21 03:13 RDW 12.6 % (12.1-15.1) 11/10/21 03:13 Plt Count 296 10^3/cmm (130-400) 11/10/21 03:13 MPV 9.6 fL (7.4-10.4) 11/10/21 03:13 Neut % (Auto) 81.0 % 11/10/21 03:13 Lymph % (Auto) 12.8 % 11/10/21 03:13 [place] % (Auto) 5.1 % 11/10/21 03:13 Eos % (Auto) 0.5 % 11/10/21 03:13 Baso % (Auto) 0.3 % 11/10/21 03:13 Neut # (Auto) 7.92 10^3/uL (1.8-7.7) H 11/10/21 03:13 Lymph # (Auto) 1.3 10^3/uL (0.8-4.8) 11/10/21 03:13 [place] # (Auto) 0.5 10^3/uL (0.2-0.9) 11/10/21 03:13 Eos # (Auto) 0.1 10^3/uL (0.0-0.8) 11/10/21 03:13 Baso # (Auto) 0.0 10^3/uL (0.0-0.1) 11/10/21 03:13 Nucleated RBC % (auto) 0 % 11/10/21 03:13 Nucleated RBCs # 0.0 /100WBC 11/10/21 03:13 D-Dimer <= 0.27 ug/mIFEU (0-0.59) 11/10/21 03:13 Sodium 135 mmol/L (136-145) L 11/10/21 03:13 Potassium 4.0 mmol/L (3.5-5.1) 11/10/21 03:13 Chloride 105 mmol/L (98-107) 11/10/21 03:13 Carbon Dioxide 21 mmol/L (22-29) L 11/10/21 03:13 Anion Gap 13.0 (5-19) 11/10/21 03:13 BUN 18 mg/dL (8-23) 11/10/21 03:13 Creatinine 0.7 mg/dL (0.7-1.2) 11/10/21 03:13 GFR Calculation Not Reportable 11/10/21 03:13 Glucose 120 mg/dL (65-115) H 11/10/21 03:13 Calculated Osmolality 283 mOsm/kg (285-295) L 11/10/21 03:13 Calcium 9.8 mg/dL (8.5-10.5) 11/10/21 03:13 Magnesium 2.0 mg/dL (1.7-2.3) 11/10/21 03:13 Total Bilirubin 0.8 mg/dL (0.15-1.2) 11/10/21 03:13 AST 16 U/L (0-40) 11/10/21 03:13 ALT 14 U/L (0-41) 11/10/21 03:13 Alkaline Phosphatase 78 IU/L (40-130) 11/10/21 03:13 Troponin T Gen 5 ng/L 18 ng/L (0-15) H 11/10/21 05:15 C-Reactive Protein 31.5 mg/L (0.0-4.9) H 11/10/21 03:13 NT-Pro-B Natriuret Pep 2690 pg/mL (0-125) H 11/10/21 03:13 Total Protein 7.3 g/dL (6.6-8.7) 11/10/21 03:13 Albumin 4.0 g/dL (3.5-5.2) 11/10/21 03:13 Globulin 3.3 g/dL (1.3-4.6) 11/10/21 03:13 Procalcitonin 0.05 ng/mL (0-0.5) 11/10/21 03:13 Coronavirus 229E (PCR) Not detected (NOT DETECT) 11/10/21 04:14 SARS-CoV-2 (PCR) Not detected (NOT DETECT) 11/10/21 04:14 Discharge Plan Discharge Patient Disposition: Home Clinical Impression: Pulmonary edema Condition: Stable Prescriptions: New furosemide 40 mg tablet 40 mg PO DAILY Qty: 3 0RF potassium chloride 20 mEq tablet extended release 20 meq PO DAILY Qty: 3 0RF doxycycline hyclate 100 mg tablet 100 mg PO BID 7 Days Qty: 14 0RF No Action saw palmetto 450 mg capsule 450 mg PO BID@0700,2100 0RF Rx Instructions: 2 CAPSULES AM/2 CAPSULES PM EyeProtect 7,160-113-100 fqsk-bq-ollu tablet 1 tab PO DAILY@1700 0RF red yeast rice 600 mg capsule 600 mg PO BID@0700,2100 0RF Rx Instructions: give with meal/snack losartan 50 mg tablet 25 mg PO BID@0700,2100 0RF tramadol 50 mg tablet 50 mg PO QID@07,12,17,21 PRN (Reason: Pain) 0RF cholecalciferol (vitamin D3) 2,000 unit tablet 2,000 unit PO DAILY@0700 0RF Discharge Orders: Discharge ED (Routine); Ordered 11/10/21 Ordered By: Yung Denise Referrals: Bertha Beyer FNP [Primary Care Provider] - Discharge Diet: Advance as tolerated Discharge Activity: Increase activity as tolerated Patient Instructions: Chest Pain (ED), Pulmonary Edema (ED) Activity Restrictions/Additional Instructions: Return immediately to the ER for worsening chest pain or shortness of breath, or any other concerning symptoms. A case management referral has been placed to set up an outpatient stress test for you. You should get a call at the beginning of the week regarding this. Medication as directed. See your doctor this coming week. Coding Level of Care Code ED Distributor Sales Manager for Jac Messina Exam Comprehensive
[2021-11-10 04:19] VITALS: BP 111/77; PULSE 65; RESP 20; O2SAT 93
[2021-11-10] MEDS: FUROsemide 10 mg/mL SDV 10mL 60 MG IVP (04:35)
[2021-11-10 05:35] VITALS: BP 141/92; PULSE 63; RESP 16; O2SAT 94
[2021-11-10 06:04] LABS: Troponin T (5th) Once 18 ng/L (0-15)
[2021-11-10 06:06] LABS: Adenovirus Not Detected (NOT DETECT); Chlamydia Pneumoniae Not Detected (NOT DETECT); Coronavirus 229E,HKU1,NL63,OC4 Not Detected (NOT DETECT); Human Metapneumovirus Not Detected (NOT DETECT); Human Rhinovirus/Enterovirus Not Detected (NOT DETECT); Influenza A Not Detected (NOT DETECT); Influenza A H1 Not Detected (NOT DETECT); Influenza A H1-2009 Not Detected (NOT DETECT); Influenza A H3 Not Detected (NOT DETECT); Influenza B Not Detected (NOT DETECT); Mycoplasma Pneumoniae Not Detected (NOT DETECT); Parainfluenza Virus Type 1 Not Detected (NOT DETECT); Parainfluenza Virus Type 2 Not Detected (NOT DETECT); Parainfluenza Virus Type 3 Not Detected (NOT DETECT); Parainfluenza Virus Type 4 Not Detected (NOT DETECT); Respiratory Syncytial Virus A Not Detected (NOT DETECT); Respiratory Syncytial Virus B Not Detected (NOT DETECT); SARS-COV-2 Not Detected (NOT DETECT)
[2021-11-10 06:38] VITALS: BP 141/92; PULSE 69; RESP 18; O2SAT 93
--- NOTE | 2021-11-12 11:41 | DCPLANNER ---
Addendum entered by Rashida Vines 01/02/22 10:22: Patient had a [facility] appointment with [facility] - patient did attend appointment. Addendum entered by Rashida Vines 11/12/21 15:29: Patient has a follow up appointment scheduled for Thursday, December 30, 2021 at 12:[address] Townsend at [facility], [place]. office services manager called patient and gave him the appointment information. office services manager also let the [facility] know of the scheduled appointment. Addendum entered by Rashida Vines 11/12/21 11:43: Patient has VA insurance, manager rn case sent patients information to Jennifer with [facility] so that the authorization process can get started. Original Note: office services manager had message to schedule an outpatient stress test for patient. Patient has [facility] insurance, manager rn case can not order a stress test from the ER. office services manager sent patients information to [facility] front staff thru [employer] task / message system. Patients information will be printed and reviewed. Clinic will notify manager rn case of the appointment information. office services manager will call patient with appointment information.
== END 2021-11-10 07:09 | disposition home or self-care (01) ==
PROVIDERS: Emergency Provider Emergency Medicine; PCP Nurse Practitioner
DX: J81.1 Chronic pulmonary edema (principal); E78.5 Hyperlipidemia, unspecified; I10 Essential (primary) hypertension; Z87.891 Personal history of nicotine dependence; Z20.822 Contact with and (suspected) exposure to COVID-19
CPT/HCPCS: 71045; 80053; 83735; 83880; 84145; 84484; 85025; 85378; 86140; 87635; 93005; 96374; 99284; J1940

== ENCOUNTER 2021-11-23 00:45 | Emergency (ER) | payer OTHER, MEDICARE, SELFPAY ==
[2021-11-23 00:54] VITALS: BP 153/90; PULSE 78; RESP 16; TEMP 36.6; O2SAT 95; BMI 25.5
--- NOTE | 2021-11-23 00:58 | XRR_ITS ---
PROCEDURE INFORMATION: Exam: XR Chest Exam date and time: 11/23/2021 1:20 AM Age: 71 years old Clinical indication: Shortness of breath; Patient HX: C/O mild chest discomfort with SOB. Recent pneumonia. History of chf. ; Additional info: Dyspnea, HX of chf TECHNIQUE: Imaging protocol: XR of the chest. Views: 1 view. COMPARISON: CR (CHEST, ) 11/10/2021 2:47 AM FINDINGS: Lungs: Hyperaerated lungs consistent with mild COPD . Pleural spaces: Unremarkable. No pleural effusion. No pneumothorax. Heart/Mediastinum: Unremarkable. No cardiomegaly. Bones/joints: Moderate thoracic spondylosis. Mild dextroscoliosis. XR/XR chest 1V portable [id number] IMPRESSION: Hyperaerated lungs consistent with mild COPD .
--- NOTE | 2021-11-23 00:58 | ECG_ITS ---
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 Measurements Intervals Loco Rate: 68 P: 40 DC: 171 QRS: -47 QRSD: 101 T: 6 QT: 409 QTc: 435 Interpretive Statements SINUS RHYTHM WITH OCCASIONAL VENTRICULAR PREMATURE COMPLEXES WITH OCCASIONAL SUPRAVENTRICULAR PREMATURE COMPLEXES POSSIBLE LEFT ATRIAL ENLARGEMENT [-0.1mV P-WAVE IN V1/V2] LEFT ANTERIOR FASCICULAR BLOCK [QRS AXIS <= -45, QR IN I, RS IN II] POSSIBLE LEFT VENTRICULAR HYPERTROPHY [VOLTAGE CRITERIA PLUS LAE OR QRS WIDENING] Compared to ECG 11/10/2021 02:10:00 Left anterior fascicular block now present Left-axis deviation no longer present Myocardial infarct finding no longer present Electronically Signed On 11-23-2021 19:05:59 CDT by Damaso Turner M.D. [id number]
--- NOTE | 2021-11-23 01:00 | ED_ITS ---
HPI - Chest Pain General: Chief Complaint: Chest Pain Stated Complaint: SOB Time Seen by Provider: 11/23/21 00:58 History of Present Illness: 71-year-old male patient comes in today with complaints of shortness of breath. Patient reports that he feels like he did back on November 10 when he was seen in the ER and diagnosed with congestive heart failure. Patient at that time was given some furosemide and was sent home with 3 days worth of furosemide 40 mg daily. Patient reports that he felt good up until the last 2 days where he has had increasing shortness of breath. Patient has a history of hypertension in which he takes losartan 50 mg a day for. Patient also takes red yeast rice twice a day along with saw palmetto and a medication for prostate hypertrophy. Patient also has a history of chronic back pain which he takes tramadol 4 times a day for. Patient speaks in full sentences. Patient sister is with him and she reports he is also under a lot of stress. Associated symptoms: Reports dyspnea; Deny fever(s), nausea or vomiting Review of Systems General: Reports: 10 or more systems reviewed and unremarkable except in HPI and below Const: Denies: fever(s) ENMT: Denies: throat pain Card: Reports: swelling of feet/ankles (Mild); Denies: chest pain Resp: Reports: dyspnea GI: Denies: nausea or vomiting Skin/Breast: Denies: rash Neuro: Denies: headache(s) [facility] ED PFSH: Medical History (Updated 11/23/21 @ 02:14 by LAMAR Wilson) Family history of prostate cancer Hearing loss Hyperlipidemia Hypertension Left inguinal pain Family History Denies family history of Anesthesia complication Bleeding disorder Social History Smoking and tobacco status: former smoker Second hand smoke exposure: No Alcohol intake: never Adopted: No Caregiver/support person: No Lives independently: Yes Household members: spouse Housing: House Marital status: service: Yes Current occupational status: retired Current occupational exposures/hazards: No Pets and animals: No History of recent travel: No Sexually active: No Current gender identity: Male Roya/Gnosticist: Restorationist Special roya needs: No Agree to transfusion: No Financial difficulty paying for basics: Decline to Answer Physical Exam Const: COMMON NORMALS: alert HENMT: COMMON NORMALS: Normal external nose present NOSE: Normal external nose present THROAT: posterior oropharynx normal Neck/C-Spine: COMMON NORMALS: full ROM Resp: COMMON NORMALS: normal respiratory effort AUSCULTATION: rales bilateral in the lower lung nunez Cardio: COMMON NORMALS: regular rate (Occasional PVC) and regular rhythm RATE: regular rate (Occasional PVC) RHYTHM: regular rhythm Extremity: COMMON NORMALS: full ROM NARRATIVE EXTREMITY EXAM: Edema bilateral lower extremity +1 Neuro: SENSORIUM/ORIENTATION: Yes alert Psych: COMMON NORMALS: cooperative Skin: COMMON NORMALS: no rashes or lesions noted GENERAL SKIN EXAM: no rashes or lesions noted Course ED course: 224, patient had improved symptoms with resolution of shortness of breath after administration of 40 mg of furosemide per IV. Vital Signs: Vital signs: Vital Signs Temperature 97.8 F 11/23/21 00:54 Pulse Rate 68 11/23/21 01:53 Respiratory Rate 18 11/23/21 01:53 Blood Pressure 126/77 11/23/21 01:53 Pulse Oximetry 96 11/23/21 01:53 MDM - Chest Pain Medical Decision Making Patient came in today for increased shortness of breath. Patient was seen about 2 weeks ago and was given IV furosemide with improvement of symptoms. Patient was supposed to follow-up with primary care but has not followed up. [facility] On exam patient had bilateral rails in the lower lung nunez. Skin was warm and dry. Vital signs were normal except for some elevation of blood pressure. Differential diagnosis includes but not limited to pneumonia, CHF with pulmonary edema, ACS. Laboratory values noted a BNP at 2300, troponin was 17 but most likely to the age, CBC was unremarkable, CMP had a sodium 135. Chest x-ray shows some pulmonary edema. I believe patient probably has some congestive heart failure we will add furosemide 20 mg daily to patient's regimen along with potassium. Strongly encourage patient to follow-up with primary care. We will also place case management to help patient get follow up with a dogger for further evaluation of congestive heart failure with echocardiogram and stress testing. Patient reported understanding and agreed to plan and treatment. Lab Data : 11/23/21 01:05 11/23/21 01:05 Laboratory Results WBC 8.8 10^3/uL (4.0-10.0) 11/23/21 01:05 RBC 4.37 10^6/uL (4.1-5.3) 11/23/21 01:05 Hgb 12.9 g/dL (11.7-16.6) 11/23/21 01:05 Hct 39.8 % (42.0-52.0) L 11/23/21 01:05 MCV 91.1 fl (80-94) 11/23/21 01:05 MCH 29.5 pg (28.0-34.0) 11/23/21 01:05 MCHC 32.4 g/dL (30.0-36.0) 11/23/21 01:05 RDW 12.5 % (12.1-15.1) 11/23/21 01:05 Plt Count 349 10^3/cmm (130-400) 11/23/21 01:05 MPV 9.6 fL (7.4-10.4) 11/23/21 01:05 Neut % (Auto) 70.8 % 11/23/21 01:05 Lymph % (Auto) 19.5 % 11/23/21 01:05 Smith % (Auto) 5.0 % 11/23/21 01:05 Eos % (Auto) 3.9 % 11/23/21 01:05 Baso % (Auto) 0.6 % 11/23/21 01:05 Neut # (Auto) 6.20 10^3/uL (1.8-7.7) 11/23/21 01:05 Lymph # (Auto) 1.7 10^3/uL (0.8-4.8) 11/23/21 01:05 Smith # (Auto) 0.4 10^3/uL (0.2-0.9) 11/23/21 01:05 Eos # (Auto) 0.3 10^3/uL (0.0-0.8) 11/23/21 01:05 Baso # (Auto) 0.1 10^3/uL (0.0-0.1) 11/23/21 01:05 Nucleated RBC % (auto) 0 % 11/23/21 01:05 Nucleated RBCs # 0.0 /100WBC 11/23/21 01:05 Sodium 135 mmol/L (136-145) L 11/23/21 01:05 Potassium 3.9 mmol/L (3.5-5.1) 11/23/21 01:05 Chloride 102 mmol/L (98-107) 11/23/21 01:05 Carbon Dioxide 24 mmol/L (22-29) 11/23/21 01:05 Anion Gap 12.9 (5-19) 11/23/21 01:05 BUN 22 mg/dL (8-23) 11/23/21 01:05 Creatinine 0.9 mg/dL (0.7-1.2) 11/23/21 01:05 GFR Calculation Not Reportable 11/23/21 01:05 Glucose 119 mg/dL (65-115) H 11/23/21 01:05 Calculated Osmolality 284 mOsm/kg (285-295) L 11/23/21 01:05 Calcium 10.1 mg/dL (8.5-10.5) 11/23/21 01:05 Total Bilirubin 0.2 mg/dL (0.15-1.2) 11/23/21 01:05 AST 21 U/L (0-40) 11/23/21 01:05 ALT 17 U/L (0-41) 11/23/21 01:05 Alkaline Phosphatase 90 IU/L (40-130) 11/23/21 01:05 Troponin T Baseline 17 ng/L (0-15) H 11/23/21 01:05 NT-Pro-B Natriuret Pep 2328 pg/mL (0-125) H 11/23/21 01:05 Total Protein 7.2 g/dL (6.6-8.7) 11/23/21 01:05 Albumin 3.9 g/dL (3.5-5.2) 11/23/21 01:05 Globulin 3.3 g/dL (1.3-4.6) 11/23/21 01:05 EKG Data EKG 1: EKG interpretation date: 11/23/21 EKG interpretation time: 01:25 Interpretation: EKG shows a sinus rhythm with an occasional PVC, rate is at 68 and irregular, no ST elevation is noted, no significant changes noted from prior exam from November 10, 2021. Discharge Plan Discharge Patient Disposition: Home Clinical Impression: Pulmonary edema Qualifiers: Chronicity: acute Qualified Code(s): J81.0 - Acute pulmonary edema Hypertension Qualifiers: Hypertension type: unspecified Qualified Code(s): I10 - Essential (primary) hypertension Condition: Stable Prescriptions: New furosemide 20 mg tablet 20 mg PO DAILY Qty: 14 0RF potassium chloride 10 mEq capsule, extended release 10 meq PO DAILY Qty: 14 0RF Discontinued furosemide 40 mg tablet 40 mg PO DAILY Qty: 3 0RF potassium chloride 20 mEq tablet extended release 20 meq PO DAILY Qty: 3 0RF No Action saw palmetto 450 mg capsule 450 mg PO BID@0700,2100 0RF Rx Instructions: 2 CAPSULES AM/2 CAPSULES PM EyeProtect 7,160-113-100 [id number] tablet 1 tab PO DAILY@1700 0RF red yeast rice 600 mg capsule 600 mg PO BID@0700,2100 0RF Rx Instructions: give with meal/snack losartan 50 mg tablet 25 mg PO BID@0700,2100 0RF tramadol 50 mg tablet 50 mg PO QID@07,12,17,21 PRN (Reason: Pain) 0RF cholecalciferol (vitamin D3) 2,000 unit tablet 2,000 unit PO DAILY@0700 0RF Discharge Orders: Discharge ED (Routine); Ordered 11/23/21 Ordered By: Rodney Disla Referrals: Bertha Beyer FNP [Primary Care Provider] - Discharge Diet: Usual diet Discharge Activity: Increase activity as tolerated Patient Instructions: Pulmonary Edema (ED) Activity Restrictions/Additional Instructions: Follow-up with primary care in 3 to 5 days for recheck. Return to emergency department for worsening symptoms. Case management will contact you in regards to follow-up appointment for cardiology for further evaluation. Return to the emergency department for worsening symptoms or new concerns. Coding Level of Care Code ED Stationary Fireman for Jac Fwmarielos Exam Comprehensive
[2021-11-23 01:03] VITALS: BP 153/90; PULSE 78; RESP 16; O2SAT 98
[2021-11-23] MEDS: FUROsemide 10 mg/mL SDV 4mL 40 MG IVP (01:18)
[2021-11-23 01:34] LABS: Basophils # 0.1 10^3/uL (0.0-0.1); Basophils % 0.6 %; Eosinophils # 0.3 10^3/uL (0.0-0.8); Eosinophils % 3.9 %; Hematocrit 39.8 % (42.0-52.0); Hemoglobin 12.9 g/dL (11.7-16.6); Lymphocytes # 1.7 10^3/uL (0.8-4.8); Lymphocytes % 19.5 %; Mean Corpuscular HGB Conc 32.4 g/dL (30.0-36.0); Mean Corpuscular Hemoglobin 29.5 pg (28.0-34.0); Mean Corpuscular Volume 91.1 fl (80-94); Mean Platelet Volume 9.6 fL (7.4-10.4); Monocytes # 0.4 10^3/uL (0.2-0.9); Neutrophils % 70.8 %; Nucleated Red Blood Cells % 0 %; Platelet Count 349 10^3/cmm (130-400); Red Blood Count 4.37 10^6/uL (4.1-5.3); Red Cell Distribution Width 12.5 % (12.1-15.1); White Blood Count 8.8 10^3/uL (4.0-10.0)
[2021-11-23 01:53] VITALS: BP 126/77; PULSE 68; RESP 18; O2SAT 96
[2021-11-23 01:58] LABS: Troponin(5th) Baseline 17 ng/L (0-15)
[2021-11-23 02:03] LABS: Alanine Aminotransferase 17 U/L (0-41); Albumin Level 3.9 g/dL (3.5-5.2); Alkaline Phosphatase 90 IU/L (40-130); Anion Gap 12.9 (5-19); Aspartate Amino Transferase 21 U/L (0-40); Blood Urea Nitrogen 22 mg/dL (8-23); Calcium 10.1 mg/dL (8.5-10.5); Carbon Dioxide 24 mmol/L (22-29); Chloride 102 mmol/L (98-107); Globulin 3.3 g/dL (1.3-4.6); Glucose 119 mg/dL (65-115); NT Pro B Type Natriuretic Pept 2328 pg/mL (0-125); Osmolality Calculated 284 mOsm/kg (285-295); Potassium 3.9 mmol/L (3.5-5.1); Sodium 135 mmol/L (136-145); Total Bilirubin 0.2 mg/dL (0.15-1.2); Total Protein 7.2 g/dL (6.6-8.7)
[2021-11-23 02:34] VITALS: BP 137/84; PULSE 62; RESP 18; O2SAT 96
--- NOTE | 2021-11-25 12:34 | DCPLANNER ---
Addendum entered by Rashida Vines 12/05/21 13:40: Patient had a follow up appointment scheduled for 12.02.21 with [facility] - patient did attend appointment. Addendum entered by Rashida Vines 11/26/21 13:31: Patient has a follow up appointment scheduled for Thursday, December 02, 2021 at 2:[address] Turner at [facility]. academic affairs manager called patient and gave him the appointment information. Addendum entered by Rashida Vines 11/25/21 12:49: academic affairs manager sent patients information to Jennifer with [facility] for the authorization process to begin. Original Note: academic affairs manager had message to schedule a follow up appointment for patient with heart care. academic affairs manager sent patients information to the front office staff at [facility] for review. Patients information will be printed and reviewed. Clinic will notify case mgr of the scheduled appointment. academic affairs manager will call patient with appointment information.
== END 2021-11-23 02:36 | disposition home or self-care (01) ==
PROVIDERS: Emergency Provider Nurse Practitioner Family; PCP Nurse Practitioner
DX: J81.0 Acute pulmonary edema (principal); I11.0 Hypertensive heart disease with heart failure; I50.9 Heart failure, unspecified; Z87.891 Personal history of nicotine dependence
CPT/HCPCS: 71045; 80053; 83880; 84484; 85025; 93005; 96374; 99284; J1940

== ENCOUNTER → 2021-12-02 14:25 | Outpatient (BNVA) | payer OTHER, SELFPAY | PROVIDERS: PCP Nurse Practitioner; Visit Provider Internal Medicine Cardiovascular Disease | DX: R07.9 Chest pain, unspecified (principal); R06.02 Shortness of breath; E78.5 Hyperlipidemia, unspecified; I10 Essential (primary) hypertension; Z87.891 Personal history of nicotine dependence | CPT/HCPCS: 99204 ==

== ENCOUNTER 2022-01-22 07:48 | Outpatient (CLI) | payer OTHER, SELFPAY ==
--- NOTE | 2022-01-22 08:21 | NMCV_ITS ---
NM mitra perf SPECT r/s* [id number] Huber Green Age: 71 Gender: M : 1950 Exam Date: 01/22/2022 08:21 Ordering Phys: Damaso Turner MD ([email or web address]) Technologist: JULIETTE Lacy Exam Location: [facility] Indications: SHORTNESS OF BREATH, CHEST PAIN STRESS TEST Please see separate stress test report in [facility]any for full findings IMAGE PROTOCOL Rest/Stress 1 Lexiscan Day Radiopharmaceutical Dose (mCi) Administration Site Administered by Rest: Tc-99m 11.0 IV JULIETTE Lacy Sestamibi Stress:Tc-99m 32.9 IV JULIETTE Perez Sestamibi Rest: 22-Jan-2022 60 Discovery 630 Stress: 22-Jan-2022 30 Discovery 630 0.4mg Lexiscan. Images obtained in supine and prone position. SPECT RESULTS Technical Quality: Excellent Raw Data Analysis: Normal Image Corrections: No attenuation or motion correction applied Summed Stress Score: 6 Summed Rest Score: 7 Summed Difference Score: 1 PERFUSION FINDINGS Moderate area of moderately decreases uptake was noted in the basal mid and apical inferior, mid inferolateral, mid inferoseptal and apical lateral regions. Some reversibility was noted in the apical inferior and apical lateral regions. FUNCTIONAL RESULTS (calculated via Gated SPECT) Stress Image LV EF (%): 28 Stress EDV (mL):292 TID: 1.01 Stress ESV (mL):209 FUNCTIONAL FINDINGS: Segmental wall motion analysis revealed severe diffuse hypokinesia of the left ventricle, more so of the apex IMPRESSIONS 1. Myocardial perfusion imaging revealing moderate area of persistent decreased tracer uptake in inferior, inferolateral, inferoseptal and apical regions with some areas of reversibility, suggestive of myocardial scarring in the distribution of the right coronary artery/circumflex artery with very small areas of dudley-infarction ischemia. 2. Markedly diminished LV ejection fraction 28%. 3. LV wall motion analysis revealing severe diffuse hypokinesia of the left ventricle, more so of the apex. 4. Markedly dilated LV cavity with an end-systolic volume of 209 mL 5. No similar previous studies are available for comparison Dr Damaso Turner MD [facility] (Electronically Signed) Final Date: 23 January 2022 08:46 S
--- NOTE | 2022-01-22 08:21 | ECG_ITS ---
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 Interpretive Statements NAME OF STUDY: LEXISCAN SESTAMIBI STRESS TEST INDICATION: Chest Pain, PROCEDURE: At the baseline, the EKG revealed normal sinus rhythm with minimal left axis deviation. Occasional PVCs. The baseline blood pressure was 146/93 mm Hg with a heart rate of 66 beats/min. Lexiscan was infused over a period of 20 seconds. A total of 0.4 milligrams of Lexiscan was infused. The stress phase was continued for a total of 5 minutes. Heart rate at the end of the stress phase was 53 with a blood pressure 145/82. The EKG at the peak infusion revealed no significant changes. Sestamibi was injected 20 seconds after the Lexiscan infusion. Blood pressure at the end of the recovery phase was 130/81 with a heart rate of 76 per minute. CONCLUSION: 1. No significant EKG changes with the LexiScan infusion 2. No LexiScan induced chest pain or cardiac arrhythmia 3. Normal blood pressure and heart rate response 4. Sestamibi/sestamibi perfusion scan pending; see separate report. Electronically Signed On 01-31-2022 6:41:00 CDT by Damaso Turner M.D. [email or web address]
[2022-01-22 08:22] VITALS: BMI 25.8
[2022-01-22] MEDS: regadenoson 0.4 Mg/5 ml Syringe IVP (10:08)
[2022-01-22 10:18] VITALS: BP 130/81; PULSE 86
== END 2022-01-22 07:49 | disposition home or self-care (01) ==
LOC: CDL 07:51
PROVIDERS: PCP Nurse Practitioner; Visit Provider Internal Medicine Cardiovascular Disease
DX: R07.9 Chest pain, unspecified (principal); R06.02 Shortness of breath
CPT/HCPCS: 78452; 93017; A9500; J2785

== ENCOUNTER 2022-01-24 13:56 | Outpatient (CLI) | payer OTHER, SELFPAY ==
--- NOTE | 2022-01-24 14:30 | USCV_ITS ---
Huber Green Age: 71 Gender: M : 1950 Exam Date: 01/24/2022 14:32 Ordering Phys: Damaso Turner MD ([email or web address]) Technologist: CHIN Exam Location: [facility] [place] Indication: Shortness of breath, chest pain BP: 160 / 90 HR: 69 Rhythm: Sinus Technical Quality: Adequate MEASUREMENTS (Male / Female) Normal Values 2D ECHO LV Diastolic Diameter PLAX 6.3 cm 4.2 - 5.9 / 3.9 - 5.3 cm LV Systolic Diameter PLAX 4.9 cm IVS Diastolic Thickness 1.3 cm 0.6 - 1.0 / 0.6 - 0.9 cm IVS Systolic Thickness 1.4 cm LVPW Diastolic Thickness 1.1 cm 0.6 - 1.0 / 0.6 - 0.9 cm LVPW Systolic Thickness 1.7 cm LVOT Diameter 2.0 cm LV Ejection Fraction 2D Teich 43.7 % LV Ejection Fraction MOD 2C 22.5 % LV Ejection Fraction 2C AL 21.9 % LA Diameter 3.4 cm LA Width 3.8 cm LA Height 5.6 cm RA Width 3.2 cm RA Height 4.9 cm Aorta at Sinotubular Diameter 2.1 cm IVC Diameter 1.8 cm M-MODE Aortic Annulus Diameter 3.7 cm LA Ao Ratio MM 0.9 MV E Point Septal Separation 2.6 cm DOPPLER AV Peak Velocity 230.0 cm/s LVOT Peak Velocity 84.0 cm/s AV Area Cont Eq vti 1.3 cm squared AV Area Cont Eq pk 1.2 cm squared MV Area PHT 4.3 cm squared Mitral E to A Ratio 3.3 MV E' Velocity 55.0 cm/s Mitral E to MV E' Ratio 14.8 Mitral E to LV E' Lateral Ratio 13.3 Mitral E to LV E' Septal Ratio 16.8 TR Peak Velocity 319.0 cm/s TR Peak Gradient 40.7 mmHg Right Atrial Pressure 3.0 mmHg Pulmonary Artery Systolic Pressu 43.7 mmHg PV Peak Velocity 110.0 cm/s RV Acceleration Time 0.1 s RV Ejection Time 0.3 s RV AcT/ET 0.3 FINDINGS Left Ventricle Severe diffuse hypokinesis of the left ventricle with an ejection fraction of 22%. Moderately dilated LV cavity Right Ventricle Normal right ventricular size and systolic function. Right Atrium Normal right atrial size. Left Atrium Mildly increased left atrial size. Mitral Valve Thickened mitral valve. Moderate mitral annular calcification. Moderate mitral valve regurgitation. Aortic Valve Thickened aortic valve. Mild aortic valve regurgitation. Features of aortic valve sclerosis Tricuspid Valve Trace tricuspid valve regurgitation. Pulmonic Valve Pulmonic valve not well visualized. Pericardium No pericardial effusion. Aorta Normal ascending aorta dimension. IVC Normal dimension CONCLUSIONS Severe diffuse hypokinesis of the left ventricle with an ejection fraction of 22%. Moderately dilated LV cavity. Mildly increased left atrial size. Thickened mitral valve. Moderate mitral annular calcification. Moderate mitral valve regurgitation. Thickened aortic valve. Mild aortic valve regurgitation. Features of aortic valve sclerosis. Trace tricuspid valve regurgitation. Estimated pulmonary artery peak systolic pressure of 44 mmHg There is no pericardial effusion. There are no intracardiac masses. No similar previous studies are available for comparison Dr Damaso Turner MD FAC (Electronically Signed) Final Date: 24 January 2022 20:08 S
== END 2022-01-24 13:57 | disposition home or self-care (01) ==
LOC: RAD 13:57
PROVIDERS: PCP Nurse Practitioner; Visit Provider Internal Medicine Cardiovascular Disease
DX: R07.9 Chest pain, unspecified (principal); R06.02 Shortness of breath; I34.0 Nonrheumatic mitral (valve) insufficiency; I35.1 Nonrheumatic aortic (valve) insufficiency
CPT/HCPCS: 93306

== ENCOUNTER → 2022-01-28 14:11 | Outpatient (BNVA) | payer OTHER, SELFPAY | PROVIDERS: PCP Nurse Practitioner; Visit Provider Internal Medicine Cardiovascular Disease | DX: I11.0 Hypertensive heart disease with heart failure (principal); I50.9 Heart failure, unspecified; R94.39 Abnormal result of other cardiovascular function study; I25.5 Ischemic cardiomyopathy; E78.5 Hyperlipidemia, unspecified; Z87.891 Personal history of nicotine dependence; Z79.01 Long term (current) use of anticoagulants | CPT/HCPCS: 36415; 80048; 85025; 85610; 86850; 86900; 99215 ==

== ENCOUNTER 2022-01-29 05:34 | Outpatient (CLI) | payer OTHER, SELFPAY ==
[2022-01-29] VITALS (31 sets, daily range): BP systolic 100–135; BP diastolic 63–94; PULSE 47–76; RESP 9–26; TEMP 37; O2SAT 92–98; BMI 24.8
--- NOTE | 2022-01-29 05:11 | XACV_ITS ---
Exam Room: 2 Ht: 178 cm Wt: 78 kg BSA: 1.98 m2 Gender: Male : 1950 Any Known Allergies: Other Exam Priority: Routine Procedure(s): Procedure Description: Diagnostic procedure Procedure Description: Left Heart Catheterization Procedure Description: Right Heart Catheterization Procedure Description: O2 saturation Procedure Description: Coronary Angiography Procedure Description: Pressure Wire Johnny PINEDA; Diagnostic Cath Status: Elective Diagnostic Findings * Left main is a medium caliber vessel which appears to have a tapering narrowing of 20% distally. * The left artery descending artery is a medium caliber vessel which appears to wrap around the LV apex minimally. The proximal to the mid LAD was found to have diffuse irregular narrowing ranging anywhere from 50 to 70%. The first diagonal branche was found to have around 60% proximal disease. The second diagonal branch was found to have around 90% ostial narrowing. The distal LAD was found to have mild diffuse intimal irregularities. Moderate diffuse calcification was noted in the proximal to mid segment of the artery. * The circumflex artery is a relatively large caliber dominant vessel which was found to have an ostial stenosis of 70%-80%. The proximal segment of the artery was found to have mild to moderate diffuse disease. The first obtuse marginal artery also was found to have moderate stenosis proximally. * The right coronary artery is a small to medium caliber nondominant vessel which was found to have around 70% stenosis proximally. Distal artery appears to have minimal intimal carotid arteries. PCI Status: Elective Interventional Findings * Procedure detail: We engaged left main artery with XB 3.5 guide catheter. IV heparin was administered to maintain ACT above 250 S. After normalization, IFR wire was advanced into distal LAD. iFR value of 0.87 was obtained. On pullback significant gradient was seen at proximal LAD. At this time IFR wire was removed and final angiogram was obtained. 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 Conclusions 1. This 71-year-old white male with history of hypertension and dyslipidemia he is present with complaints of chest pain and shortness of breath. He had an echocardiogram done which revealed a severe diffuse hypokinesia of the left ventricle with ejection fraction of around 22%. The Myocardial perfusion imaging revealed multiple areas of fixed and reversible defects suggesting myocardial scarring with ischemia in the distribution of all the 3 coronary arteries. In view of the patient's symptoms and the abnormal objective findings, in order to further evaluate his coronary status, left and right heart catheterization with left and right coronary angiogram were recommended. The findings are as follows.. 2. 1. 20% tapering narrowing of the left main. 70 to 80% ostial narrowing of the dominant left circumflex artery. Moderate disease in the proximal segment of the first obtuse marginal artery. Moderately severe diffuse disease in the proximal to mid segment of the left anterior descending artery. Moderately severe disease in the proximal segment of the first diagonal artery. High-grade ostial narrowing of the second diagonal artery. Moderate calcification was noted in the proximal to mid LAD and proximal circumflex artery. 70% stenosis in the proximal nondominant right coronary artery. LVEDP of 20 mmHg. Pulmonary artery pressure of 53/24 with a mean of 34 mmHg. Pulmonary capillary wedge pressure 26. RV pressure was 48/5 and the mean RA pressure was 12 millimeters of mercury. Cardiac index of 3.0 based on Jose R's method. . 3. I reviewed and discussed the cardiac catheterization data with Dr. Townsend. To better evaluate the proximal LAD lesion, IFR was thought to be appropriate. The IFR was found to be 0.87. Recommendations * With severe ostial left circumflex artery stenosis and proximal LAD stenosis (ischemia confirmed with IFR value of 0.87), will recommend CT surgery evaluation for coronary artery bypass surgery.. * Continue aspirin. * High intensity statin therapy. * Outpatient cardiology follow-up in 2 weeks. Interventional RX Recommendation: CABG Diagnostic RX Recommendation: CABG LV EDP: 20 mmHg Left Ventriculography Findings: * LV gram was not performed because of the limitations of the dye usage. LVEDP was 20 mmHg. Pressures Phase:Rest AO : 109 / 64 ( 87 ) @ 10:11:00 AM 103 / 73 ( 87 ) @ 10:16:00 AM 104 / 60 ( 81 ) @ 10:22:00 AM 109 / 59 ( 82 ) @ 10:22:00 AM 85 / 53 ( 66 ) @ 10:43:00 AM 113 / 66 ( 83 ) @ 10:48:00 AM LV : 119 / 1 / 19 @ 10:21:00 AM 117 / 1 / 18 @ 10:22:00 AM RV : 48 / 5 / 13 @ 10:02:00 AM PA : 53 / 24 ( 34 ) @ 10:00:00 AM RA : a wave = 15 v wave = 13 mean = 12 @ 10:03:00 AM PCW : a wave = 30 v wave = 32 mean = 26 @ 9:59:00 AM Hemodynamic Findings The PA pressure was 53/24 with a mean of 34. Pulmonary capillary wedge pressure was 26. RV pressure was 48/5. The right atrial mean pressure was 12. Cardiac output was 5 with an index of 3, based on Jose R's. O2 Content Phase:Rest PA : O2 Content O2: 70.0 @ 10:22:00 AM Saturations Phase:Rest AO : 93 @ 10:22:00 AM RA : 71 @ 10:11:00 AM RV : 70 @ 10:16:00 AM PA : 70 @ 10:22:00 AM Cardiac Output Phase:Rest Jose R : 5 @ 9:57:16 AM Jose R Cardiac Index: 3 @ 9:57:16 AM Flow Phase:Rest Qp : 5 @ 9:57:16 AM Qs : 5 @ 9:57:16 AM Valves Phase:DefaultPhase AV : 13.0 @ 9:57:16 AM 13.0 @ 9:57:16 AM AV Mean Gradient: 15.0 @ 9:57:16 AM 15.0 @ 9:57:16 AM AV Flow: 269 @ 9:57:16 AM AV Area: 1.6 @ 9:57:16 AM AV Area Index: 0.80 @ 9:57:16 AM Clinical Evaluation EBL: 5mL-10mL Procedural Details Procedure Consent Obtained. Pre-Procedure Time Out. Identified patient by full name and date of as verbalized by the patient/guarantor. Does the consent match the physician's order: Yes. Accurate & Complete Informed Consent: Yes. Inpatient/Outpatient History & Physical on Chart: Yes. If H&P is completed, is and addenduem needed: No; If yes, is the addendum complete: N/A. Visualize and Verify Site with Patient/Guarantor: N/A. Relevant Radiology Images available: Yes. Pre-op teaching completed and patient verbalized understanding. The risks, benefits, and alternatives of sedation and/or procedure were discussed by physician. The patient agrees to continue. Procedure started. [facility] Clinical Fraility Score: 3: Managing Well. Clock Repair Technician Indications: Suspected CAD. Chest Pain Symptom Assessment: Typical Angina Symptoms. Correct patient, site and procedure confirmed by cath team. Current diagnosis: Chest Pain. PERRLA. 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 Lungs clear x 5 lobes. Physician arrived. IV Site on Arrival: 20 gauge in the left anticubital. IV Fluids: 0.9% NaCl at KVO. 0 mL infused prior to rn lab. Pre Procedural Pulses: bilateral dorsalis pedis was 3+. Pre Procedural Pulses: bilateral posterior tibial was 3+. Pre Procedural Pulses: right radial was 3+. right groin was prepped with chloroprep then draped in the usual sterile fashion. right radial was prepped with chloroprep then draped in the usual sterile fashion. Baseline sample Acquired. HR: 70 BPM. Physician scrubbed in. Immediate Pre-Procedure Time Out. Correct Patient: Yes; Correct Procedure: Yes; Correct Site: Yes; Correct Patient Position: Yes; Correct Supplies: Yes; Dried Flammable Prep: Yes; Blood Products Available: N/A;. Lidocaine 1% infiltrated to the right brachial. sheath wire inserted through the brachial IV catheter. IV catheter out OTW. [place] MON catheter inserted. Oximetry samples were obtained. Normal venous range: 60-85%. Normal arterial range: 95-100%. Pressure measurements obtained. [place] out. Lidocaine 1% infiltrated to the right radial. Arterial access obtained. A 5 armenian Maikol catheter in over wire. Multiple views taken of right coronary artery. Catheter redirected to the LCA. Multiple views taken of left coronary artery. Dr. Townsend called to review films. Catheter removed over the standard wire. A 5 armenian Angled Pig catheter in over wire. EDP Sample taken: LV 119/1,19; HR: 69 BPM; SpO2: 93%. Pullback taken: LV 117/1,18; AO 104/60(81); Mean: 15mmHg, Peak to Peak: 13mmHg, SEP: 19sec/min; HR: 68 BPM; SpO2: 94%. Catheter removed over the standard wire. Dr. Turner scrubbed out. Dr. Townsend arrived. Dr. Townsend scrubbed in to perform intervention. 6 armenian XB 3.5 SH guide catheter was inserted over the wire. FFR guidewire was advanced through the guide catheter to lesion in the prox LAD. IFR Results: 0.87. wire out. Guide catheter out. Dr. Townsend scrubbed out. A Manual Compression was successful obtaining hemostatsis at the Right Brachial Vein insertion site. A TR Band was successful obtaining hemostatsis at the Right Radial artery insertion site. Post Procedure: Pulses reassessed and unchanged. PERRLA. 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 No VTE prophylaxis required. Medication's Wasted: Lidocaine 1% = 8 mL. Medication's Wasted: Heparin = 3000 units mL. Medication's Wasted: Nitro = 49.8 mg. Total IV fluids: 92 mL. Contrast type used: Omnipaque 300 mgI/mL, 500 mL bottle. 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 Complications: None. Estimated blood loss: 5mL-10mL. Responsiveness - Normal response to verbal stimuli; alert and oriented, PERRLA. Vital chart was stopped. Airway - Unaffected, no intervention required; spontaneous ventilation. Circulation: W/N/L, pulses unchanged. Nausea/Vomiting: No. Procedure completed. Patient transferred by wheelchair to 1st floor. Access Site Site: Right Brachial Vein Sheath Size: 6 Fr Hemostasis Method: Manual Compression Hemostasis Success: Successful Site: Right Radial artery Sheath Size: 6 Fr Hemostasis Method: TR Band Hemostasis Success: Successful Procedure Medications Start: 8:49 AM Stop: 8:49 AM Medication: Versed Amount: 1 mg Route: I.V. Start: 8:49 AM Stop: 8:49 AM Medication: Fentanyl Amount: 50 mcg Route: I.V. Start: 8:58 AM Stop: 8:58 AM Medication: Versed Amount: 1 mg Route: I.V. Start: 8:58 AM Stop: 8:58 AM Medication: Fentanyl Amount: 50 mcg Route: I.V. Start: 9:08 AM Stop: 9:08 AM Medication: Verapamil Amount: 5 mg Route: I.A. Start: 9:09 AM Stop: 9:09 AM Medication: Nitrogylcerin Amount: 200 mcg Route: I.A. Start: 9:10 AM Stop: 9:10 AM Medication: Heparin Amount: 5000 units Route: I.V. Start: 9:10 AM Stop: 9:10 AM Medication: Versed Amount: 1 mg Route: I.V. Start: 9:10 AM Stop: 9:10 AM Medication: Fentanyl Amount: 50 mcg Route: I.V. Start: 9:37 AM Stop: 9:37 AM Medication: Heparin Amount: 3000 units Route: I.V. I, the attending physician, have reviewed and verified all procedure medications. Yes, all medications given per verbal order History/Risk Factors Hypertension: Yes Dyslipidemia: Yes Peripheral Arterial Disease (PAD): No Myocardial Infarction (CT): No Obesity: No Renal Disease: No Tobacco Use: Former Prior Interventions PCI: No CABG: No Valve Surgery: No Report Signatures Interventional Workflow Finalized by Pernell Townsend MD on 02/05/2022 07:05 AM Diagnostic Workflow Finalized by Dr Damaso Turner MD [facility] on 01/29/2022 05:14 PM
[2022-01-29] MEDS: diphenhydrAMINE 50 mg Capsule PO (06:26)
--- NOTE | 2022-01-29 06:44 | W.PM.OPSUD ---
Surgery/Procedure H&P Update DATE OF PROCEDURE: January 29, 2022 DATE H&P PERFORMED: 01/28/21 H&P UPDATE INFORMATION: I have reviewed H&P completed within last 30 days, I have examined patient prior to procedure and No changes to prior documentation PREOP DIAGNOSIS: ASHD/Cardiomyopathy PRIMARY INDICATION FOR PROCEDURE: CHF/ Cardiomyopathy/ Abnormal MPI PLANNED PROCEDURE: Operation Date: 01/29/22 07:00 Proposed Procedures p Cardiac Catheterization(Left) - Damaso Turner MD PATIENT REASSESSED PRIOR TO SEDATION, WITH NO CHANGE NOTED: Yes PHYSICAL EXAM: alert, oriented x 3, clear to auscultation bilaterally and regular rate & rhythm AIRWAY EVAL/ANESTHESIA PLAN: normal airway, see other exam findings, ASA III, Monitored Anesthesia, Local Anesthesia, Risks, benefits & alternatives of sedation and/or procedure discussed and Patient agrees to continue as planned
[2022-01-29 09:33] LABS: Alveolar-Arterial Oxygen Gradi 8.1 mmHg (5-10); Arterial Blood Gas Hematocrit 42.1 % (42-52); Blood Gas Allen Test Pos; Blood Gas Operator Identificat Anonymous; Blood Gas Sample Type Arterial; Methemoglobin 0.5 % (0.4-1.5); Total Hemoglobin 13.7 g/dL (14-18)
[2022-01-29 09:35] LABS: Alveolar-Arterial Oxygen Gradi 4.4 mmHg (5-10); Arterial Blood Gas Hematocrit 43.8 % (42-52); Blood Gas Allen Test Pos; Blood Gas Operator Identificat Anonymous; Blood Gas Sample Type Arterial; Carboxyhemoglobin 0.7 %THgb (0.4-20.1); HGB O2 Sat 91.7 % (95-100); Methemoglobin 0.2 % (0.4-1.5); Total Hemoglobin 14.3 g/dL (14-18)
[2022-01-29 09:36] LABS: Alveolar-Arterial Oxygen Gradi 7.8 mmHg (5-10); Arterial Blood Gas Hematocrit 46.4 % (42-52); Blood Gas Allen Test Pos; Blood Gas Operator Identificat Anonymous; Blood Gas Sample Type Arterial; Carboxyhemoglobin 0.7 %THgb (0.4-20.1); HGB O2 Sat 70.9 % (95-100); Methemoglobin < 0.0 % (0.4-1.5); Total Hemoglobin 15.1 g/dL (14-18)
[2022-01-29] MEDS: TRAMadol 50 mg Tablet PO ×2 (12:00→17:13)
[2022-01-29] MEDS: carvedilol 3.125 mg Tablet PO (17:14)
--- NOTE | 2022-01-29 17:24 | P.TS_ITS ---
Transfer Summary Providers Date of Admission: 01/29/22 09:58 Date of Discharge/Transfer: 01/29/22 Attending Provider at Admission: Damaso Turner MD Attending Provider at Transfer: Damaso Turner MD Consults: None Primary Care Provider: LAMAR Hutchins Transfer Plans: Anticipated date of transfer: 01/29/22 . Receiving Facility: [facility] . Receiving Provider: Dr. Ishaan Hale . 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 He had an abnormal Myocardial perfusion imaging. Echocardiogram revealed LV ejection fraction 22%. For further evaluation of his coronary status, a right and left heart catheterization with coronary angiogram was performed. Patient was found to have three-vessel coronary artery disease involving the ostium of the left circumflex artery and proximal segment of the left anterior descending artery. For further management of his condition, coronary artery bypass surgery was thought to be appropriate. Hospital Course Hospital Course Patient remained stable throughout the hospital course. Currently we do not have a surgical team in the hospital. The surgery needs to be done as early as possible in view of his complex coronary anatomy and severe LV dysfunction. I contacted the cardiothoracic surgery of the [facility] in [place]. Dr. Ishaan hale accepted transfer for further management. Physical Exam Narrative: GENERAL: The patient is alert and oriented times three. Not in any acute distress. HEENT: No significant pallor, icterus or lymphadenopathy.Oral cavity: There are no mucous membrane lesions. NECK: Trachea appears to be central. No masses noted. No JVD or thyromegaly appreciated. RESPIRATORY: Chest is symmetrical. No intercostals muscle retraction or any accessory muscle activation. There is no chest wall tenderness. Breath sounds are heard bilaterally. No rales or rhonchi heard. No evidence of any consolidation. BREASTS: Deferred. HEART: The heart sounds are normal. No S3 or S4. Short systolic murmur in the left sternal border. No diastolic murmurs. No pericardial rub ABDOMEN: No vessel pulsations or distention. No tenderness. No organomegaly appreciated. Bowel sounds are normally heard. : Deferred. RECTAL: Deferred. LYMPHATIC: No lymphadenopathy noted in the neck. EXTREMITIES: No edema or cyanosis. No clubbing. MUSCULOSKELETAL: No acute joint deformities or swelling SKIN: There are no significant rashes or ecchymosis NEUROPSYCHIATRIC: The patient is alert and oriented x3. Appears to be in a good mood. No tremors or rigidity noted. 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 Routine Exams 01/29/22 05:11 Taken ABG Coox Only Stat Lab 01/29/22 09:35 Results ABG Coox Only Stat Lab 01/29/22 09:36 Results ABG Coox Only Stat Lab 01/29/22 09:37 Results ABG FULL [Arterial Blood Gas Full] Stat Lab 01/29/22 09:38 Received Labs from last 24 hours 01/29/22 01/29/22 01/29/22 09:38 09:37 09:36 Specimen Type Pending Arterial Arterial Sample Site Pending Pending Pending ABG pH Pending ABG pCO2 Pending ABG pO2 Pending ABG HCO3 Pending ABG O2 Saturation Pending ABG Base Excess Pending Javi Test Pending Pos Pos A-a O2 Gradient Pending 7.8 8.1 Hematocrit Pending 46.4 42.1 Hgb O2 Saturation Pending 70.9 L 69.0 L Carboxyhemoglobin Pending 0.7 1.0 Methemoglobin Pending < 0.0 L 0.5 Total Hemoglobin Pending 15.1 13.7 L Sodium Pending Potassium Pending Glucose Pending Ionized Calcium Pending O2 Delivery Device Pending Pending Pending Flaring Machine Operator ID Pending Anonymous Anonymous 01/29/22 09:35 Specimen Type Arterial Sample Site Pending ABG pH ABG pCO2 ABG pO2 ABG HCO3 ABG O2 Saturation ABG Base Excess Javi Test Pos A-a O2 Gradient 4.4 L Hematocrit 43.8 Hgb O2 Saturation 91.7 L Carboxyhemoglobin 0.7 Methemoglobin 0.2 L Total Hemoglobin 14.3 Sodium Potassium Glucose Ionized Calcium O2 Delivery Device Pending Flaring Machine Operator ID Anonymous Laboratory Last Values Specimen Type Arterial 01/29/22 09:37 Javi Test Pos 01/29/22 09:37 A-a O2 Gradient 7.8 mmHg (5-10) 01/29/22 09:37 Hematocrit 46.4 % (42-52) 01/29/22 09:37 Hgb O2 Saturation 70.9 % (95-100) L 01/29/22 09:37 Carboxyhemoglobin 0.7 %THgb (0.4-20.1) 01/29/22 09:37 Methemoglobin < 0.0 % (0.4-1.5) L 01/29/22 09:37 Total Hemoglobin 15.1 g/dL (14-18) 01/29/22 09:37 Flaring Machine Operator ID Anonymous 01/29/22 09:37 Imaging Echo: My impression: Echocardiogram done on 01/24/2022 ?severe diffuse hypokinesis of the left ventricle? with an? ?ejection fraction of 22%.? Moderately dilated LV cavity. ?Mildly increased left atrial size. ?Thickened mitral valve. Moderate mitral annular calcification. ?Moderate mitral valve regurgitation. ?Thickened aortic valve. Mild aortic valve regurgitation.? ?Features of aortic valve sclerosis. ?Trace tricuspid valve regurgitation. ?Estimated pulmonary artery peak systolic pressure of 44 mmHg ?There is no pericardial effusion. ?There are no intracardiac masses. ?No similar previous studies are available for comparison Other Imaging: My impression: ?1.? Myocardial perfusion imaging revealing moderate area of persistent ?decreased tracer uptake in inferior, inferolateral,? inferoseptal and apical ?regions with some areas of reversibility, suggestive of myocardial scarring in ?the distribution of the right coronary artery/circumflex artery with very small ?areas of dudley-infarction ischemia. ?2.? Markedly diminished LV ejection fraction 28%. ?3.? LV wall motion analysis revealing severe diffuse hypokinesia of the left ?ventricle, more so of the apex. ?4.? Markedly dilated LV cavity with an end-systolic volume of 209 mL ?5.? No similar previous studies are available for comparison Recent Clincial Data Last Vital Signs Temp 98.6 F 01/29/22 06:12 Pulse 76 01/29/22 16:45 Resp 17 01/29/22 16:45 BP 135/94 01/29/22 16:45 Pulse Ox 96 01/29/22 16:00 Vital Signs Temp Pulse Resp BP Pulse Ox 01/29/22 16:45 76 17 135/94 01/29/22 16:30 76 13 135/94 01/29/22 16:15 70 20 H 120/80 01/29/22 16:00 59 L 16 121/80 96 01/29/22 15:45 70 26 H 132/87 01/29/22 15:30 59 L 20 H 129/79 01/29/22 15:15 57 L 17 109/79 98 01/29/22 15:00 54 L 15 110/66 97 01/29/22 14:45 60 16 117/75 98 01/29/22 14:30 59 L 14 124/72 96 01/29/22 14:15 65 22 H 120/71 97 01/29/22 14:00 57 L 16 120/71 96 01/29/22 13:45 65 17 114/64 93 01/29/22 13:30 53 L 15 118/66 92 01/29/22 13:15 56 L 15 108/63 95 01/29/22 13:00 53 L 17 113/66 95 01/29/22 12:45 58 L 20 H 122/69 96 01/29/22 12:30 59 L 20 H 127/76 96 01/29/22 12:15 61 18 131/78 96 01/29/22 12:00 58 L 15 131/78 96 01/29/22 11:45 53 L 13 120/71 96 01/29/22 11:30 50 L 9 L 120/71 95 01/29/22 11:15 55 L 12 113/75 95 01/29/22 11:00 51 L 17 100/64 96 01/29/22 10:45 48 L 17 117/70 95 01/29/22 10:30 47 L 10 L 117/70 96 01/29/22 10:15 50 L 14 117/68 96 01/29/22 10:05 51 L 14 93 01/29/22 06:12 98.6 F 52 L 18 126/87 96 Intake & Output/Weight 01/27/22 01/28/22 01/29/22 01/30/22 06:59 06:59 06:59 06:59 Weight 173 lb Vitals Last Vital Signs Temp 98.6 F 01/29/22 06:12 Pulse 76 01/29/22 16:45 Resp 17 01/29/22 16:45 BP 135/94 01/29/22 16:45 Pulse Ox 96 01/29/22 16:00 TS Medications Medications Carvedilol (Carvedilol 3.125 Mg Tablet) 3.125 mg PO BID LUANNE Last Admin: 01/29/22 17:14 Dose: 3.125 mg Documented by: Furosemide (Furosemide 20 Mg Tablet) 20 mg PO DAILY LUANNE Sodium Chloride (Sodium Chloride 0.9%) 1,000 mls @ 50 mls/hr IV .Q20H ONE Stop: 01/30/22 01:08 Last Admin: 01/29/22 17:10 Dose: Not Given Documented by: Losartan Potassium (Losartan 50 Mg Tablet) 25 mg PO BID@0700,2100 [facility] Nitroglycerin (Nitroglycerin 0.4 Mg Sublingual Tablet) 0.4 mg SUBLINGUAL Q5M PRN PRN Reason: chest pain Non-Formulary Medication (Red Yeast Rice) 600 mg PO BID@0700,2100 [facility] Non-Formulary Medication (Saw [place]) 450 mg PO BID@0700,2100 [facility] Non-Formulary Medication (Vit A-Vit C-Vit [id number]-[id number]-[id number] [Eyeprotect]) 1 tab PO DAILY@1700 [facility] Potassium Chloride (Potassium Chloride Er 10 Meq Tablet) 10 meq PO DAILY [facility] Spironolactone (Spironolactone 25 Mg Tablet) 25 mg PO DAILY [facility] Tramadol HCl (Tramadol 50 Mg Tablet) 50 mg PO QID@07,12,17,21 PRN PRN Reason: Pain Last Admin: 01/29/22 17:13 Dose: 50 mg Documented by: Vitamin D (Cholecalciferol (Vitamin D3) 1,000 Unit Tablet) 2,000 unit PO DAILY@0700 [facility] Discontinued Medications Diphenhydramine HCl (Diphenhydramine 50 Mg Capsule) 50 mg PO ONCE ONE Stop: 01/29/22 05:10 Last Admin: 01/29/22 06:26 Dose: 50 mg Documented by: Fentanyl (Fentanyl 50 Mcg/Ml Inj 2ml) Confirm Administered Dose 100 mcg .ROUTE .STK-MED ONE Stop: 01/29/22 06:52 Fentanyl (Fentanyl 50 Mcg/Ml Inj 2ml) Confirm Administered Dose 100 mcg .ROUTE .STK-MED ONE Stop: 01/29/22 08:44 Fentanyl (Fentanyl 50 Mcg/Ml Inj 2ml) Confirm Administered Dose 100 mcg .ROUTE .STK-MED ONE Stop: 01/29/22 09:10 Heparin Sodium (Porcine) (Heparin 5,000 Unit/Ml Inj 1 Ml) Confirm Administered Dose 5,000 unit .ROUTE .STK-MED ONE Stop: 01/29/22 06:52 Heparin Sodium (Porcine) (Heparin 5,000 Unit/Ml Inj 1 Ml) Confirm Administered Dose 5,000 unit .ROUTE .STK-MED ONE Stop: 01/29/22 08:52 Heparin Sodium (Porcine) (Heparin 5,000 Unit/Ml Inj 1 Ml) Confirm Administered Dose 5,000 unit .ROUTE .STK-MED ONE Stop: 01/29/22 09:06 Lidocaine HCl (Lidocaine 1%) Confirm Administered Dose 10 mls @ as directed .ROUTE .STK-MED ONE Stop: 01/29/22 08:42 Sodium Chloride (Sodium Chloride 0.9%) Confirm Administered Dose 1,000 mls @ as directed .ROUTE .STK-MED ONE Stop: 01/29/22 08:44 Midazolam HCl (Midazolam 1 Mg/Ml Inj 2 Ml) Confirm Administered Dose 2 mg .ROUTE .STK-MED ONE Stop: 01/29/22 08:44 Midazolam HCl (Midazolam 1 Mg/Ml Inj 2 Ml) Confirm Administered Dose 2 mg .ROUTE .STK-MED ONE Stop: 01/29/22 09:10 Nitroglycerin (Nitroglycerin 5 Mg/Ml Sdv 10 Ml) Confirm Administered Dose 50 mg .ROUTE .STK-MED ONE Stop: 01/29/22 08:42 Verapamil HCl (Verapamil 2.5 Mg/Ml Inj 2ml) Confirm Administered Dose 5 mg .ROUTE .STK-MED ONE Stop: 01/29/22 08:42 Allergies aspirin Allergy (Verified 01/28/22 09:36) ADR-Nose Bleed causes stomach bleeding atorvastatin Allergy (Verified 01/28/22 09:36) Unknown bee venom protein (honey bee) Allergy (Verified 01/28/22 09:36) Unknown Home Medications cholecalciferol (vitamin D3) 50 mcg (2,000 unit) tablet 2,000 unit PO DAILY@0700 09/16/19 [History Confirmed 01/29/22] losartan 50 mg tablet 25 mg PO BID@0700,2100 tab 09/16/19 [History Confirmed 01/29/22] tramadol 50 mg tablet 50 mg PO QID@07,12,17,21 PRN tab 09/16/19 [History Confirmed 01/29/22] saw palmetto 450 mg capsule 450 mg PO BID@0700,2100 10/13/19 [History Confirmed 01/29/22] vit A 7,160 unit-vit C 113 mg-vit E 100 [id number]-eucbjl tablet (EyeProtect) 1 tab PO DAILY@1700 10/13/19 [History Confirmed 01/29/22] red yeast rice 600 mg capsule 600 mg PO BID@0700,2100 02/15/20 [History Confirmed 01/29/22] furosemide 20 mg tablet 20 mg PO DAILY #14 tab 11/23/21 [Rx Confirmed 01/29/22] potassium chloride 10 mEq capsule,extended release 10 meq PO DAILY #14 cap 11/23/21 [Rx Confirmed 01/29/22] carvedilol 3.125 mg tablet 3.125 mg PO BID #60 tab 12/02/21 [Rx Confirmed 01/29/22] nitroglycerin 0.4 mg sublingual tablet (Nitrostat) 0.4 mg SUBLINGUAL Q5M PRN #50 tab 01/23/22 [Rx Confirmed 01/29/22] spironolactone 25 mg tablet 25 mg PO DAILY 30 Days #30 tab 01/28/22 [Rx Confirmed 01/29/22] tamsulosin 0.4 mg capsule 1 mg PO DAILY 01/29/22 [History Confirmed 01/29/22] Discharge Plan Discharge Patient Disposition: Xfer Short-Term Hosp Condition: Stable Prescriptions: No Action saw palmetto 450 mg capsule 450 mg PO BID@0700,2100 0RF Rx Instructions: 2 CAPSULES AM/2 CAPSULES PM EyeProtect [id number],160-113-100 zhuo-rz-jyzr tablet 1 tab PO DAILY@1700 0RF red yeast rice 600 mg capsule 600 mg PO BID@0700,2100 0RF Rx Instructions: give with meal/snack losartan 50 mg tablet 25 mg PO BID@0700,2100 0RF tramadol 50 mg tablet 50 mg PO QID@07,12,17,21 PRN (Reason: Pain) 0RF cholecalciferol (vitamin D3) 2,000 unit tablet 2,000 unit PO DAILY@0700 0RF spironolactone 25 mg tablet 25 mg PO DAILY 30 Days Qty: 30 5RF carvedilol 3.125 mg tablet 3.125 mg PO BID Qty: 60 5RF Rx Instructions: must administer with a meal/food nitroglycerin [Nitrostat] 0.4 mg tablet, sublingual 0.4 mg sublingual Q5M PRN (Reason: chest pain) Qty: 50 3RF Rx Instructions: do not exceed 3 doses per episode tamsulosin 0.4 mg Capsule 1 mg PO DAILY 0RF furosemide 20 mg tablet 20 mg PO DAILY Qty: 14 0RF potassium chloride 10 mEq capsule, extended release 10 meq PO DAILY Qty: 14 0RF Discharge Orders: Transfer Out of Facility (Order); Ordered 01/29/22 Ordered By: Damaso Turner Transfer Attestations Time Spent in Transfer Care: greater than 30 min Quality Metrics Clinical Quality Measures [ No reported AMI, CVA or VTE this stay] Coding Level 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
--- NOTE | 2022-01-29 17:38 | PC.NURSE ---
Patient accepted to care of [facility] for further care report called to Paula MARTE
--- NOTE | 2022-01-29 17:50 | PC.NURSE ---
1400 Tr band removed per protocol no hematoma or advers event noted patient tolerated well
--- NOTE | 2022-01-29 18:49 | PC.NURSE ---
Transfer Note Patient transferred to [facility] from [facility] via ambulance. report called to receiving unit. Covering service notified. Orders reviewed and will continue to monitor. Family and/or international account representative notified.
== END 2022-01-29 18:30 | disposition home or self-care (01) ==
LOC: CCL 05:37 → CSU 09:58
PROVIDERS: Internal Medicine; PCP Nurse Practitioner; Visit Provider Internal Medicine Cardiovascular Disease
DX: R07.9 Chest pain, unspecified (principal); E78.5 Hyperlipidemia, unspecified; I65.22 Occlusion and stenosis of left carotid artery; I25.118 Atherosclerotic heart disease of native coronary artery with other forms of angina pectoris; I25.2 Old myocardial infarction; I11.0 Hypertensive heart disease with heart failure; I50.9 Heart failure, unspecified; Z87.891 Personal history of nicotine dependence
CPT/HCPCS: 36415; 80051; 82330; 82805; 82810; 93452; 93458; 93571; 96360; 99152; 99153; C1751; C1769; C1887; C1894; G0378; J1644; J2250; J3010; J3490; J7030; Q0163; Q9967

== ENCOUNTER 2022-03-27 11:30 | Outpatient (CLI) | payer OTHER, SELFPAY ==
[2022-03-27 12:47] LABS: Anion Gap 14.4 (5-19); Blood Urea Nitrogen 17 mg/dL (8-23); Calcium 9.9 mg/dL (8.5-10.5); Carbon Dioxide 29 mmol/L (22-29); Chloride 103 mmol/L (98-107); Glucose 87 mg/dL (65-115); Osmolality Calculated 295 mOsm/kg (285-295); Potassium 4.4 mmol/L (3.5-5.1); Sodium 142 mmol/L (136-145)
== END 2022-03-27 11:31 | disposition home or self-care (01) ==
PROVIDERS: PCP Nurse Practitioner; Visit Provider Internal Medicine Cardiovascular Disease
DX: I25.118 Atherosclerotic heart disease of native coronary artery with other forms of angina pectoris (principal); I25.5 Ischemic cardiomyopathy; I50.9 Heart failure, unspecified; R06.02 Shortness of breath; R07.9 Chest pain, unspecified
CPT/HCPCS: 80048

== ENCOUNTER → 2022-05-05 14:49 | Outpatient (BNVA) | payer OTHER, SELFPAY | PROVIDERS: PCP Nurse Practitioner; Visit Provider Internal Medicine Cardiovascular Disease | DX: R06.02 Shortness of breath (principal); I25.5 Ischemic cardiomyopathy; I10 Essential (primary) hypertension; E78.5 Hyperlipidemia, unspecified; F17.210 Nicotine dependence, cigarettes, uncomplicated; I25.118 Atherosclerotic heart disease of native coronary artery with other forms of angina pectoris | CPT/HCPCS: 36415; 80048; 83880; 99214 ==

== ENCOUNTER 2022-08-21 13:38 | Outpatient (CLI) | payer OTHER, SELFPAY ==
--- NOTE | 2022-08-21 | USCV_ITS ---
Huber Green Age: 72 Gender: M : 1950 Exam Date: 08/21/2022 14:12 Ordering Phys: Damaso Turner MD ([email or web address]) Technologist: Exam Location: [facility] [place] Indication: hx of cad stents BP: 170 / 70 HR: 37 Rhythm: Sinus Technical Quality: Adequate MEASUREMENTS (Male / Female) Normal Values 2D ECHO LV Diastolic Diameter PLAX 6.5 cm 4.2 - 5.9 / 3.9 - 5.3 cm LV Systolic Diameter PLAX 5.3 cm IVS Diastolic Thickness 1.3 cm 0.6 - 1.0 / 0.6 - 0.9 cm IVS Systolic Thickness 1.1 cm LVPW Diastolic Thickness 1.4 cm 0.6 - 1.0 / 0.6 - 0.9 cm LVPW Systolic Thickness 1.4 cm LVOT Diameter 2.0 cm LV Ejection Fraction 2D Teich 37.8 % LV Ejection Fraction MOD 2C 48.7 % LV Ejection Fraction 2C AL 48.9 % LA Diameter 4.6 cm Aorta at Sinotubular Diameter 3.5 cm IVC Diameter 1.7 cm M-MODE Aortic Annulus Diameter 4.1 cm LA Ao Ratio MM 1.2 MV E Point Septal Separation 2.2 cm DOPPLER AV Peak Velocity 283.3 cm/s LVOT Peak Velocity 80.0 cm/s AV Area Cont Eq vti 1.1 cm squared AV Area Cont Eq pk 0.9 cm squared MV Area PHT 5.0 cm squared Mitral E to A Ratio 1.0 MV E' Velocity 53.0 cm/s Mitral E to MV E' Ratio 10.8 Mitral E to LV E' Lateral Ratio 8.0 Mitral E to LV E' Septal Ratio 16.4 TR Peak Velocity 336.7 cm/s TR Peak Gradient 45.3 mmHg TV Peak E Velocity 102.0 cm/s Right Atrial Pressure 3.0 mmHg Pulmonary Artery Systolic Pressu 48.3 mmHg RV Acceleration Time 0.1 s FINDINGS Left Ventricle Diffuse hypokinesia of the left ventricle. LV ejection fraction around 40% (visual).Grade II/IV diastolic dysfunction, moderately elevated filling pressures. Right Ventricle Right ventricle not well visualized. Normal right ventricular systolic function. Right Atrium The right atrium is normal in size. Left Atrium Mildly increased left atrial size. Mitral Valve Thickened mitral valve. Moderate mitral valve regurgitation. Aortic Valve Moderate aortic valve calcification. Moderate aortic valve stenosis, mean gradient 12.4 mmHg, GLORIA 1.1 cm squared. Tricuspid Valve Mild tricuspid valve regurgitation. Estimated pulmonary artery peak systolic pressure 48 mmHg Pulmonic Valve No gross abnormalities noted Pericardium No pericardial effusion. Aorta Normal ascending aorta dimension. IVC Normal inferior vena cava. CONCLUSIONS Diffuse hypokinesia of the left ventricle. LV ejection fraction around 40% (visual). Grade II/IV diastolic dysfunction, moderately elevated filling pressures. Mildly dilated LV cavity. Mildly increased left atrial size. Thickened mitral valve. Moderate mitral valve regurgitation. Moderate aortic valve stenosis, mean gradient 12.4 mmHg, GLORIA 1.1 cm squared. Mild tricuspid valve regurgitation. There is no pericardial effusion. There are no intracardiac masses. Estimated pulmonary artery peak systolic pressure 48 mmHg. Compared to the study from 01/24/2022, there is significant improvement in the LV ejection fraction Dr Damaso Turner MD [facility] (Electronically Signed) Final Date: 21 August 2022 17:22 S
== END 2022-08-21 13:39 | disposition home or self-care (01) ==
LOC: RAD 13:39
PROVIDERS: PCP Nurse Practitioner; Visit Provider Internal Medicine Cardiovascular Disease
DX: I50.9 Heart failure, unspecified (principal); I34.0 Nonrheumatic mitral (valve) insufficiency; I07.1 Rheumatic tricuspid insufficiency; Z98.61 Coronary angioplasty status
CPT/HCPCS: 93306

== ENCOUNTER → 2022-09-02 14:43 | Outpatient (BNVA) | payer OTHER, SELFPAY | PROVIDERS: PCP Nurse Practitioner; Visit Provider Nurse Practitioner Family | DX: I25.118 Atherosclerotic heart disease of native coronary artery with other forms of angina pectoris (principal); I11.0 Hypertensive heart disease with heart failure; I50.9 Heart failure, unspecified; Z87.891 Personal history of nicotine dependence; Z95.1 Presence of aortocoronary bypass graft; E78.5 Hyperlipidemia, unspecified | CPT/HCPCS: 36415; 80048; 83880; 99214 ==

== ENCOUNTER → 2022-11-03 15:24 | Outpatient (BNVA) | payer OTHER, SELFPAY | PROVIDERS: PCP Nurse Practitioner; Visit Provider Internal Medicine Cardiovascular Disease | DX: R06.02 Shortness of breath (principal); I10 Essential (primary) hypertension; Z79.899 Other long term (current) drug therapy; I25.118 Atherosclerotic heart disease of native coronary artery with other forms of angina pectoris; I25.5 Ischemic cardiomyopathy; I11.0 Hypertensive heart disease with heart failure; I50.9 Heart failure, unspecified; E78.5 Hyperlipidemia, unspecified; Z87.891 Personal history of nicotine dependence | CPT/HCPCS: 36415; 80048; 83880; 99214 ==

== ENCOUNTER → 2022-12-03 09:21 | Outpatient (BNVA) | payer OTHER, SELFPAY | PROVIDERS: PCP Nurse Practitioner; Visit Provider Nurse Practitioner Family | DX: I25.5 Ischemic cardiomyopathy (principal); I11.0 Hypertensive heart disease with heart failure; I50.9 Heart failure, unspecified; Z87.891 Personal history of nicotine dependence; Z79.82 Long term (current) use of aspirin | CPT/HCPCS: 36415; 80048; 83880; 99214 ==

== ENCOUNTER 2024-08-25 12:58 | Observation (INO) | payer OTHER, MEDICARE, SELFPAY ==
[2024-08-25] VITALS (9 sets, daily range): BP systolic 114–160; BP diastolic 62–93; PULSE 54–79; RESP 12–23; TEMP 36.6–37; O2SAT 92–97; BMI 26.4
--- NOTE | 2024-08-25 13:09 | XR_ITS ---
WS: [id number] Portable AP upright chest, 08/25/2024 Clinical Data: Near syncope Comparison: Portable chest, 11/23/2021 Findings: No nodules, masses or effusions are seen. The heart is normal. The pulmonary vascularity is not increased. No pneumonia or pneumothorax is seen. Midline sternotomy sutures are present. The aor tic arch and descending thoracic aorta show tortuosity. The diaphragms are flattened. Monitor leads a re on the chest wall. XR/XR chest 1V portable [id number] Impression: Atherosclerosis and hyperinflation.
--- NOTE | 2024-08-25 13:11 | ED_ITS ---
HPI - General Adult 2 General: Chief complaint: Weakness Stated complaint: near syncope, weakness Time Seen by Provider: 08/25/24 13:09 History of Present Illness: 74-[facility]. He was outside working he was not doing much exertional he had just had an eye surgery and could not do any heavy lifting he was standing on the ground had opened a gate for his neighbor to move something heavy through the gate he got weak in his legs and nearly passed out he did fall down. He says he has had this happen before. He did not have any chest pain or shortness of breath with it. He does have a history of coronary artery disease and these previously been evaluated for some aortic stenosis. He has also had back issues and back pain. He states his legs feel weak but he has not had any sharp pain into his legs. He has not had any urinary retention or fecal incontinence. His last echo 2 years ago showed moderate aortic stenosis with a valve area of 1.1 cm? Associated symptoms: Deny chest pain, dyspnea or rash Related Data Home Medications Medication Instructions Recorded Confirmed cholecalciferol (vitamin D3) 50 2,000 unit PO DAILY@0700 09/16/19 08/25/24 mcg (2,000 unit) tablet aspirin 81 mg tablet,delayed 81 mg PO DAILY 05/05/22 08/25/24 release (Adult Low Dose Aspirin) metoprolol succinate 25 mg 25 mg PO DAILY 05/05/22 08/25/24 tablet,extended release 24 hr eidngngc-rr-hbjst 300 mcg-K 60 1 tab PO DAILY 05/05/22 08/25/24 mcg-lycop 600 mcg-lutein 300 mcg tablet (Centrum Silver Ultra Men's) rosuvastatin 20 mg tablet 20 mg PO DAILY 08/25/24 08/25/24 tramadol 50 mg tablet 50 mg PO QID PRN Pain 08/25/24 08/25/24 Previous Rx's Medication Instructions Recorded nitroglycerin 0.4 mg sublingual 0.4 mg sublingual Q5M PRN chest 01/23/22 tablet (Nitrostat) pain #50 tabs empagliflozin 10 mg tablet 10 mg PO DAILY #30 tabs 12/10/22 (Jardiance) sacubitril 49 mg-valsartan 51 mg 1 tab PO BID #180 tabs 12/10/22 tablet Allergies Allergy/AdvReac Type Severity Reaction Status Date / Time aspirin Allergy ADR-Nose Verified 11/03/22 08:57 Bleed atorvastatin Allergy Unknown Verified 11/03/22 08:57 bee venom protein (honey bee) Allergy Unknown Verified 11/03/22 08:57 Review of Systems 2 Const: Denies: fever(s) or chills Card: Denies: chest pain Resp: Denies: dyspnea GI: Denies: abdominal pain : Denies: dysuria, urinary frequency or urinary urgency Musc: Denies: neck pain or back pain Skin/Breast: Denies: rash PFSH ED 2 PFSH: Medical History Ischemic cardiomyopathy Congestive heart failure Family history of prostate cancer Hypertension Hyperlipidemia Hearing loss Left inguinal pain Surgical History S/P CABG x 4 Family History Father CAD (coronary artery disease), Onset Age: 55 Cancer Grandmother CAD (coronary artery disease) Mother Diabetes Stroke Family/Other Diabetes Denies family history of Clotting disorder Dementia Chronic kidney disease (CKD) Suicide Anesthesia complication Bleeding disorder Lung disease Social History Smoking and tobacco/nicotine status: former use of tobacco/nicotine Second hand smoke exposure: No Alcohol intake: never Substance/Drug Use: never Adopted: No Caregiver/support person: No Lives independently: Yes Household members: spouse Housing: House Marital status: service: Yes Current occupational status: retired Current occupational exposures/hazards: No Pets and animals: No Sexually active: No Do you think of yourself as: Straight/Heterosexual Current gender identity: Male Roya/Shinto: Adventist Special roya needs: No Agree to transfusion: No Physical Exam 2 Const: GENERAL APPEARANCE: cooperative ORIENTATION/CONSCIOUSNESS: Yes awake, Yes oriented to person, Yes oriented to place and Yes oriented to time HENMT: COMMON NORMALS: normocephalic, atraumatic and hearing grossly normal bilaterally HEAD & SCALP: normocephalic and atraumatic Resp: COMMON NORMALS: normal respiratory effort, No retractions, No use of accessory muscles and clear to auscultation bilaterally AUSCULTATION: clear to auscultation bilaterally Cardio: COMMON NORMALS: regular rate, regular rhythm and No murmurs present (Cardio) RATE: regular rate RHYTHM: regular rhythm GI: COMMON NORMALS: Soft to palpation and No hepatosplenomegaly present A USCULTATION: Yes normoactive bowel sounds PALPATION: Yes Soft to palpation, No Tenderness to palpation present (GI), No Guarding due to palpation present (GI) and Yes No hepatosplenomegaly present Extremity: COMMON NORMALS: normal to inspection, capillary refill normal, no clubbing, cyanosis or edema, no calf tenderness and no pedal edema Neuro: SENSORIUM/ORIENTATION: Yes oriented to person, Yes oriented to place and Yes oriented to time Skin: COMMON NORMALS: no rashes or lesions noted GENERAL SKIN EXAM: no rashes or lesions noted Course 2 Vital Signs: Vital signs: Vital Signs Temperature 97.8 F 08/26/24 04:00 Pulse Rate 86 08/26/24 06:00 Respiratory Rate 20 H 08/26/24 04:00 Blood Pressure 105/51 08/26/24 04:00 Pulse Oximetry 88 L 08/26/24 04:00 Oxygen Delivery Me thod Room Air 08/26/24 04:00 MDM - General Adult Medical Decision Making Patient has isolated syncopal episode. Suspect this may be cardiac he has a slight bump in his troponin he has a known ischemic cardiomyopathy and he had a aortic stenosis has not been rechecked in almost 2 years. Patient alluded to having other similar episodes or near syncopal episodes in the past. Will admit for further cardiac workup. Attempted to consult Dr. 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 I have discussed with hospitalist orders are written Medical Records I reviewed the patient's medical records. Lab Data I reviewed the patient's lab results. 08/26/24 02:17 08/26/24 02:17 Radiology Impressions Chest X-Ray 08/25/24 13:09 Impression: Atherosclerosis and hyperinflation. Lumbar Spine CT 08/25/24 13:26 IMPRESSION: 1. No acute lumbar spine fracture. 2. Components of spinal and foraminal stenosis as above. Most significant stenosis at L4-5. Head CT 08/25/24 17:33 IMPRESSION: No acute intracranial abnormality. Laboratory Results WBC 8.85 10^3/uL (3.29-11.43) 08/25/24 13:36 RBC 4.58 10^6/uL (3.85-5.65) 08/25/24 13:36 Hgb 13.50 g/dL (11.27-16.99) 08/25/24 13:36 Hct 42.2 % (37-53) 08/25/24 13:36 MCV 92.1 fl (82-101) 08/25/24 13:36 MCH 29.5 pg (27-33) 08/25/24 13:36 MCHC 32.0 g/dL (30-55) 08/25/24 13:36 RDW 13.0 % (12.1-15.1) 08/25/24 13:36 Plt Count 306 10^3/cmm (157-399) 08/25/24 13:36 MPV 8.6 fL (7.4-10.4) 08/25/24 13:36 Neut % (Auto) 76.4 % 08/25/24 13:36 Lymph % (Auto) 16.3 % 08/25/24 13:36 [place] % (Auto) 5.1 % 08/25/24 13:36 Eos % (Auto) 1.4 % 08/25/24 13:36 Baso % (Auto) 0.6 % 08/25/24 13:36 Neut # (Auto) 6.77 10^3/uL (1.8-7.7) 08/25/24 13:36 Lymph # (Auto) 1.4 10^3/uL (0.8-4.8) 08/25/24 13:36 [place] # (Auto) 0.5 10^3/uL (0.2-0.9) 08/25/24 13:36 Eos # (Auto) 0.1 10^3/uL (0.0-0.8) 08/25/24 13:36 Baso # (Auto) 0.1 10^3/uL (0.0-0.1) 08/25/24 13:36 Nucleated RBC % (auto) 0 % 08/25/24 13:36 Nucleated RBCs # 0.0 /100WBC 08/25/24 13:36 ESR 31 mm/hr (0-10) H 08/25/24 13:36 Sodium 138 mmol/L (136-145) 08/25/24 12:35 Potassium 4.0 mmol/L (3.5-5.1) 08/25/24 12:35 Chloride 101 mmol/L (98-107) 08/25/24 12:35 Carbon Dioxide 24 mmol/L (22-29) 08/25/24 12:35 Anion Gap 17.0 (5-19) 08/25/24 12:35 BUN 17 mg/dL (8-23) 08/25/24 12:35 Creatinine 0.7 mg/dL (0.7-1.2) 08/25/24 12:35 GFR Calculation Not Reportable 08/25/24 12:35 Glucose 88 mg/dL (65-115) 08/25/24 12:35 Estimat Average Glucose 117 08/25/24 13:36 Hemoglobin A1c 5.7 % (4.0-6.0) 08/25/24 13:36 Calculated Osmolality 287 mOsm/kg (285-295) 08/25/24 12:35 Lactic Acid 1.2 mmol/L (0.5-2.2) 08/25/24 18:08 Calcium 10.4 mg/dL (8.5-10.5) 08/25/24 12:35 Magnesium 2.2 mg/dL (1.7-2.3) 08/25/24 12:35 Total Bilirubin 0.5 mg/dL (0.15-1.2) 08/25/24 12:35 AST 23 U/L (0-40) 08/25/24 12:35 ALT 19 U/L (0-41) 08/25/24 12:35 Alkaline Phosphatase 107 U/L (40-130) 08/25/24 12:35 Troponin T Baseline 18 ng/L (0-15) H 08/25/24 14:03 Troponin T 120 Minute 25.18 ng/L (0-15) H 08/25/24 16:04 Delta Troponin T 7.18 ABS# (0-10) 08/25/24 16:04 C-Reactive Protein 6.7 mg/L (0.0-4.9) H 08/25/24 12:35 Total Protein 8.0 g/dL (6.6-8.7) 08/25/24 12:35 Albumin 4.5 g/dL (3.5-5.2) 08/25/24 12:35 Globulin 3.5 g/dL (1.3-4.6) 08/25/24 12:35 Triglycerides 131 mg/dL (0-150) 08/25/24 12:35 Cholesterol 174 mg/dL (0-200) 08/25/24 12:35 LDL Cholesterol, Calc 108 mg/dL (50-129) 08/25/24 12:35 HDL Cholesterol 40 mg/dL (60-100) L 08/25/24 12:35 LDL/HDL Ratio 2.70 RATIO (0.00-3.22) 08/25/24 12:35 Cholesterol/HDL Ratio 4.35 mg/dL (1.0-5.00) 08/25/24 12:35 Procalcitonin 0.06 ng/mL (0-0.5) 08/25/24 12:35 TSH 2.94 uIU/mL (0.27-4.20) 08/25/24 12:35 Urine Color Yellow (Yellow) 08/25/24 14:05 Urine Appearance Clear (CLEAR) 08/25/24 14:05 Urine pH 6.0 (5-7) 08/25/24 14:05 Ur Specific [place] 1.032 (1.005-1.030) H 08/25/24 14:05 Urine Protein Negative (Negative) 08/25/24 14:05 Urine Glucose (UA) 2+ (Normal) H 08/25/24 14:05 Urine Ketones Trace (Negative) 08/25/24 14:05 Urine Blood Negative (Negative) 08/25/24 14:05 Urine Nitrate Negative (Negative) 08/25/24 14:05 Urine Bilirubin Negative (Negative) 08/25/24 14:05 Urine Urobilinogen 1.0 mg/dL (Negative) 08/25/24 14:05 Ur Leukocyte Esterase Negative (Negative) 08/25/24 14:05 Urine RBC 0-2 /hpf (0-2) 08/25/24 14:05 Urine WBC 0-5 /hpf (0-5) 08/25/24 14:05 Ur Squamous Epith Cells 0-5 /hpf (0-5) 08/25/24 14:05 Amorphous Sediment Not Reportable 08/25/24 14:05 Urine Bacteria None seen /hpf (NONE) 08/25/24 14:05 Hyaline Casts 0-4 /lpf H 08/25/24 14:05 All radiology interpretation(s) finalized by discharge Discharge Plan Discharge Patient Disposition: Admitted As Inpatient Admit Provider: Obey Lacy Clinical Impression: Syncope, Ischemic cardiomyopathy, Aortic stenosis Condition: Stable Coding Level of Care Code ED Senior Ui Designer for Jac Messina
--- NOTE | 2024-08-25 13:26 | CT_ITS ---
WS: [id number] CT LUMBAR SPINE, noncontrast. HISTORY: back pain leg weakness TECHNIQUE: Contiguous 2.0 mm axial imaging are performed. Sagittal and coronal reformats are submitte d and reviewed. All CT scans at [facility] use at least one of these dose optimization techni ques: automated exposure control; mA and/or kV adjustment per patient size (includes targeted exams w here dose is matched to clinical indication); or iterative reconstruction. IV contrast: None DLP: 855.98 mGy.cm COMPARISON: None available. 2 mm retrolisthesis of L2. No acute lumbar spine fracture. Moderate facet joint arthritis at L5-S1. L1-2: Normal. L2-3: Mild annular disc bulging encroaching upon the ventral thecal sac. Mild bilateral subarticular recess and foraminal stenosis. L3-4: Mild annular disc bulge with ligamentum flavum and facet arthritis. Mild central, bilateral sub articular recess and foraminal stenosis. L4-5: Mild annular disc bulging with shallow bilateral foraminal disc protrusions. Mild central, bila teral subarticular recess and moderate foraminal stenosis. L5-S1: Mild annular disc bulging with mild encroachment upon the S1 nerve roots. Mild foraminal steno sis. Advanced atherosclerosis abdominal aorta and mesenteric arteries. Bilateral low-attenuation masses in each kidney cannot be further characterized. CT/CT lumbar spine wo con* [id number] IMPRESSION: 1. No acute lumbar spine fracture. 2. Components of spinal and foraminal stenosis as above. Most significant sten osis at L4-5.
--- NOTE | 2024-08-25 13:29 | ECG_ITS ---
[facility] Date: 2024-08-25 Pat Name: Huber Green Department: Room: Gender: Male Shroudman: : 1950 Requested By: Zhang Wilson Order Number: [id number] Jim MD: Damaso Turner M.D. Measurements Intervals [place] Rate: 55 P: 39 WV: 199 QRS: -50 QRSD: 109 T: -16 QT: 435 QTc: 419 Interpretive Statements SINUS BRADYCARDIA LEFT ANTERIOR FASCICULAR BLOCK [QRS AXIS <= -45, QR IN I, RS IN II] POSSIBLE LEFT VENTRICULAR HYPERTROPHY [VOLTAGE CRITERIA PLUS LAE OR QRS WIDENING] Compared to ECG 11/23/2021 01:03:19 Sinus rhythm no longer present Ventricular premature complex(es) no longer present Electronically Signed On 08-25-2024 18:18:02 HEATING AND VENTILATING WORKER by Damaso Turner M.D. [id number]
--- NOTE | 2024-08-25 13:30 | PC.PHAR ---
patient unsure of his meds, [facility] will follow up as soon as i can
[2024-08-25 13:42] LABS: Basophils # 0.1 10^3/uL (0.0-0.1); Basophils % 0.6 %; Eosinophils # 0.1 10^3/uL (0.0-0.8); Eosinophils % 1.4 %; Hematocrit 42.2 % (37-53); Lymphocytes # 1.4 10^3/uL (0.8-4.8); Lymphocytes % 16.3 %; Mean Corpuscular Hemoglobin 29.5 pg (27-33); Mean Corpuscular Volume 92.1 fl (82-101); Mean Platelet Volume 8.6 fL (7.4-10.4); Monocytes # 0.5 10^3/uL (0.2-0.9); Monocytes % 5.1 %; Neutrophils # 6.77 10^3/uL (1.8-7.7); Neutrophils % 76.4 %; Nucleated Red Blood Cells % 0 %; Platelet Count 306 10^3/cmm (157-399); Red Blood Count 4.58 10^6/uL (3.85-5.65); White Blood Count 8.85 10^3/uL (3.29-11.43)
[2024-08-25 14:00] LABS: Alanine Aminotransferase 19 U/L (0-41); Albumin Level 4.5 g/dL (3.5-5.2); Alkaline Phosphatase 107 U/L (40-130); Aspartate Amino Transferase 23 U/L (0-40); Blood Urea Nitrogen 17 mg/dL (8-23); Calcium 10.4 mg/dL (8.5-10.5); Carbon Dioxide 24 mmol/L (22-29); Chloride 101 mmol/L (98-107); Creatinine Clr Calc Pharmacy 91.2693; Globulin 3.5 g/dL (1.3-4.6); Glucose 88 mg/dL (65-115); Magnesium 2.2 mg/dL (1.7-2.3); Osmolality Calculated 287 mOsm/kg (285-295); Sodium 138 mmol/L (136-145); Total Bilirubin 0.5 mg/dL (0.15-1.2)
[2024-08-25 14:23] LABS: Bilirubin Urine Negative (Negative); Blood Urine Negative (Negative); Glucose Urine UA 2+ (Normal); Ketones Urine Trace (Negative); Leukocyte Esterase Urine Negative (Negative); Nitrate Urine Negative (Negative); Protein Urine Negative (Negative); Urine Appearance Clear (CLEAR); Urine Color Yellow (Yellow)
[2024-08-25 14:26] LABS: Troponin(5th) Baseline 18 ng/L (0-15)
[2024-08-25 14:28] LABS: Add Urine Microscopic? YES; Bacteria Urine None Seen /hpf; Hyaline Casts Urine 0-4 /lpf; RBC Urine 0-2 /hpf (0-2); Squamous Epithelial Cell Urine 0-5 /hpf (0-5); WBC Urine 0-5 /hpf (0-5)
[2024-08-25 14:41] LABS: Specific Gravity, Urine 1.032 (1.005-1.030)
--- NOTE | 2024-08-25 15:10 | ECG_ITS ---
[facility] [employer] [facility] Test Date: 2024-08-25 Pat Name: Huber Green Department: Room: Gender: Male Prorate Clerk: : 1950 Requested By: Zhang Wilson Order Number: [id number] Jim MD: Damaso Turner M.D. Measurements Intervals [place] Rate: 64 P: 40 MS: 190 QRS: -47 QRSD: 111 T: -13 QT: 426 QTc: 442 Interpretive Statements SINUS RHYTHM WITH OCCASIONAL VENTRICULAR PREMATURE COMPLEXES INCOMPLETE RIGHT BUNDLE BRANCH BLOCK [90+ ms QRS DURATION, TERMINAL R IN V1/V2, 40+ ms S IN I/aVL/V4/V5/V6] LEFT ANTERIOR FASCICULAR BLOCK [QRS AXIS <= -45, QR IN I, RS IN II] POSSIBLE LEFT VENTRICULAR HYPERTROPHY [VOLTAGE CRITERIA PLUS LAE OR QRS WIDENING] NONSPECIFIC T-WAVE ABNORMALITY Compared to ECG 08/25/2024 13:29:52.Ventricular premature complex(es) now present Incomplete right bundle-branch block now present. T-wave abnormality now present Sinus bradycardia no longer present Electronically Signed On 08-25-2024 18:24:58 PRIMARY THERAPIST by Damaso Turner M.D. [id number]
[2024-08-25 16:50] LABS: Troponin 5 2HR 25.18 ng/L (0-15); Troponin 5 2HR Delta 7.18 ABS# (0-10)
--- NOTE | 2024-08-25 17:21 | USCV_ITS ---
Huber Green Age: 74 Gender: M : 1950 Exam Date: 08/25/2024 17:34 Ordering Phys: Zhang Vazquez DO Technologist: CT Exam Location: [facility] [place] Indication: as BP: 160 / 80 HR: 56 Rhythm: Sinus Technical Quality: Adequate MEASUREMENTS (Male / Female) Normal Values 2D ECHO LVOT Diameter 2.1 cm LV Ejection Fraction MOD 4C 46.6 % LV Ejection Fraction MOD 2C 43.4 % LV Ejection Fraction 2C AL 47.6 % LA Diameter 4.9 cm RA Systolic Volume 4C AL 44.4 ml RA Systolic Volume 4C MOD 42.6 ml LA Sys Volume AL 68.0 cm cubed LA Sys Volume Index AL 32.5 cm cubed/m squared Aorta at Sinotubular Diameter 2.3 cm M-MODE LA Ao Ratio MM 1.5 AV Cusp Separation MM 1.4 cm DOPPLER AV Peak Velocity 243.0 cm/s LVOT Peak Velocity 84.0 cm/s AV Area Cont Eq vti 1.4 cm squared AV Area Cont Eq pk 1.2 cm squared MV Peak Velocity 89.0 cm/s MV Area PHT 5.8 cm squared Mitral E to A Ratio 2.5 TV Peak Velocity 252.4 cm/s TR Peak Velocity 328.5 cm/s TR Peak Gradient 43.2 mmHg TR Mean Velocity 229.0 cm/s TR Mean Gradient 24.1 mmHg TR Velocity Time Integral 79.4 cm TV Peak E Velocity 61.0 cm/s PV Peak Velocity 124.5 cm/s FINDINGS Left Ventricle Mild diffuse hypokinesis of the left ventricular ejection fraction of 45%. Mildly dilated LV cavity. Mild concentric ventricular hypertrophy Right Ventricle The right ventricle is normal in size and function. Right Atrium The right atrium is normal in size. Left Atrium Mildly increased left atrial size. Mitral Valve Mild-moderate mitral valve regurgitation. Aortic Valve Thickened aortic valve. Moderate aortic valve stenosis, mean gradient 13.4 mmHg, GLORIA 1.4 cm squared. Peak velocity of 2.4 m/s. Tricuspid Valve No gross abnormalities noted.trace tricuspid valve regurgitation. Estimated pulmonary artery peak systolic pressure 55 mmHg Pulmonic Valve Pulmonic valve not well visualized. Pericardium Normal pericardium without effusion. Aorta Normal ascending aorta dimension. IVC The inferior vena cava appears normal. CONCLUSIONS Mild diffuse hypokinesis of the left ventricular ejection fraction of 45%. Mildly dilated LV cavity. Mild concentric ventricular hypertrophy. No gross abnormalities noted.trace tricuspid valve regurgitation. Estimated pulmonary artery peak systolic pressure 55 mmHg. Thickened aortic valve. Moderate aortic valve stenosis, mean gradient 13.4 mmHg, GLORIA 1.4 cm squared. Peak velocity of 2.4 m/s. Mildly increased left atrial size. Mild-moderate mitral valve regurgitation. There is no pericardial effusion. There are no intracardiac masses. Compared to the study from 11/19/2022, there may not be a significant change Dr Damaso Turner MD [facility] (Electronically Signed) Final Date: 25 August 2024 19:41 S
--- NOTE | 2024-08-25 17:33 | CTR_ITS ---
PROCEDURE INFORMATION: Exam: CT Head Without Contrast Exam date and time: 08/25/2024 6:13 PM Age: 74 years old Clinical indication: Syncope and collapse TECHNIQUE: Imaging protocol: Computed tomography of the head without contrast. Radiation optimization: All CT scans at this facility use at least one of these dose optimization techniques: automated exposure control; mA and/or kV adjustment per patient size (includes targeted exams where dose is matched to clinical indication); or iterative reconstruction. COMPARISON: No relevant prior studies available. RADIATION DOSE METRICS: Total DLP (mGy-cm): 1084.98 FINDINGS: Brain: Suspected areas of remote cortical lamina necrosis with calcification in the bilateral posterior occipital lobes. Advanced periventricular white matter change likely related to chronic ischemic small vessel disease. No intracranial mass, hemorrhage or recent infarct. Cerebral ventricles: No ventriculomegaly. Paranasal sinuses: Visualized sinuses are unremarkable. No fluid levels. Mastoid air cells: Visualized mastoid air cells are well aerated. Bones: Unremarkable. No acute fracture. Soft tissues: Unremarkable. CT/CT head wo con* [id number] IMPRESSION: No acute intracranial abnormality.
--- NOTE | 2024-08-25 17:33 | USCV_ITS ---
NormaHuber Age: 74 Gender: M : 1950 Exam Date: 08/25/2024 18:57 Ordering Phys: Obey Lacy MD Technologist: ROSINA [place] [facility] [place]ication: syncope Risk Factors: unknown Previous Vascular Surgery: unknown Right Brachial BP: 152 / 87 Left Brachial BP: / Right Left Velocity (cm/s) Spectral Plaque Velocity (cm/s) Spectral Plaque Syst/Diast Broadening Syst/Diast Broadening 93.40/ 8.50 Min Homo Prox CCA 89.20 / 17.50 Min Homo 73.80/ 15.00 Min Hetro Mid CCA 96.40 / 21.00 Min Homo 81.90/ 18.20 Min Homo Distal CCA 100.00/ 23.40 Min Hetro 54.50/ 16.50 Min Miki Prox ICA 61.60 / 15.60 Min Miki 67.20/ 21.30 Min Hetro Mid ICA 76.30 / 22.10 Min Hetro 62.00/ 17.00 Mod Homo Distal ICA 96.30 / 21.50 Min Homo 112.20 Min Hetro ECA 149.40 Min Miki 0.80 ICA/CCA 1.00 Antegrade Vertebral Antegrade 35.80/ 9.20 cm/s 50.90/ 17.50 cm/s Tri Subclavian Tri 82.70 98.80 FINDINGS Comparison: none available. Diffuse, mild bilateral scattered calcified plaque and intimal thickening throughout the common carotid arteries and extending through the bifurcation. No significant elevation of systolic or diastolic velocities. CONCLUSIONS Bilateral ICA stenosis less than 50%. Mild diffuse carotid atherosclerosis. Dr. Radha Apple DO (Electronically Signed) Final Date: 26 August 2024 08:48 S
--- NOTE | 2024-08-25 17:33 | P.HP_ITS ---
Providers/Chief Complaint 2 Primary Care Provider: LAMAR Hutchins Chief Complaint: near syncope, weakness History of Present Illness Huber Green is a 74 year old male with a past medical history of CABG, ischemic cardiomyopathy, hyperlipidemia, hypertension who presents [facility] for syncopal episode. Currently patient is alert oriented x 3, following all commands, patient's sister is at bedside, he tells me that he has been doing well recently, he has osteoarthritis of his back he has had back surgery, he tells me that at times his knees give out, he is fairly active, he likes to square dance, he squared downs not too long ago without any issues, no shortness of breath, no palpitations, no syncopal episodes. 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 friend helped move the callus, helped lift the suh, he tells me that while working his counts with his friend, he felt his knees gave out, and he went to the ground, he thinks he lost consciousness but is not exactly sure his friend thought he lost consciousness, no chest pain, no palpitations, no seizures, no strokelike symptoms no facial no slurring words, no focal weakness, no recent illness, no dysuria, hematuria, no recent medication changes Review of Systems 2 Const: Denies: fever(s) or chills Card: Denies: chest pain Resp: Denies: dyspnea GI: Denies: abdominal pain : Denies: flank pain Neuro: Reports: weakness in extremities; Denies: headache(s), numbness in extremities, dizziness or confusion Medications/Allergies Home Medications Medication Instructions Recorded Confirmed Last Taken Type cholecalciferol (vitamin D3) 50 2,000 unit PO DAILY@0700 09/16/19 08/25/24 01/28/22 06:00 History mcg (2,000 unit) tablet nitroglycerin 0.4 mg sublingual 0.4 mg sublingual Q5M PRN chest 01/23/22 08/25/24 Unknown Rx tablet (Nitrostat) pain #50 tabs aspirin 81 mg tablet,delayed 81 mg PO DAILY 05/05/22 08/25/24 Unknown History release (Adult Low Dose Aspirin) metoprolol succinate 25 mg 25 mg PO DAILY 05/05/22 08/25/24 Unknown History tablet,extended release 24 hr pvryivbd-by-dwgdq 300 mcg-K 60 1 tab PO DAILY 05/05/22 08/25/24 Unknown History mcg-lycop 600 mcg-lutein 300 mcg tablet (Centrum Silver Ultra Men's) empagliflozin 10 mg tablet 10 mg PO DAILY #30 tabs 12/10/22 08/25/24 Unknown Rx (Jardiance) sacubitril 49 mg-valsartan 51 mg 1 tab PO BID #180 tabs 12/10/22 08/25/24 Unknown Rx tablet rosuvastatin 20 mg tablet 20 mg PO DAILY 08/25/24 08/25/24 Unknown History Allergies Allergy/AdvReac Type Severity Reaction Status Date / Time aspirin Allergy ADR-Nose Verified 11/03/22 08:57 Bleed atorvastatin Allergy Unknown Verified 11/03/22 08:57 bee venom protein (honey bee) Allergy Unknown Verified 11/03/22 08:57 PFSH Acute 2 PFSH: Medical History Ischemic cardiomyopathy Congestive heart failure Family history of prostate cancer Hypertension Hyperlipidemia Hearing loss Left inguinal pain Surgical History S/P CABG x 4 Family History Father CAD (coronary artery disease), Onset Age: 55 Cancer Grandmother CAD (coronary artery disease) Mother Diabetes Stroke Family/Other Diabetes Denies family history of Clotting disorder Dementia Chronic kidney disease (CKD) Suicide Anesthesia complication Bleeding disorder Lung disease Social History Smoking and tobacco/nicotine status: former use of tobacco/nicotine Second hand smoke exposure: No Alcohol intake: never Substance/Drug Use: never Adopted: No Caregiver/support person: No Lives independently: Yes Household members: spouse Housing: House Marital status: service: Yes Current occupational status: retired Current occupational exposures/hazards: No Pets and animals: No Sexually active: No Do you think of yourself as: Straight/Heterosexual Current gender identity: Male Roya/Evangelical: Yarsanism Special roya needs: No Agree to transfusion: No Vitals/I&O/Wt Last Vital Signs Temp 97.9 F 08/25/24 13:02 Pulse 59 L 08/25/24 17:06 Resp 18 08/25/24 17:06 BP 114/62 08/25/24 17:06 Pulse Ox 94 08/25/24 17:06 O2 Del Method Room Air 08/25/24 17:06 Weight last 48 hrs Weight 86.183 kg Physical Exam 2 Const: COMMON NORMALS: no acute distress and patient oriented x3 HENMT: COMMON NORMALS: normocephalic HEAD & SCALP: normocephalic Eye: COMMON NORMALS: Equal, round and reactive pupils present and EOMs intact bilaterally Neck/C-Spine: COMMON NORMALS: no JVD Resp: COMMON NORMALS: normal respiratory effort, No retractions, No use of accessory muscles and clear to auscultation bilaterally AUSCULTATION: clear to auscultation bilaterally Cardio: COMMON NORMALS: regular rate, regular rhythm, S1 normal heart sound present and S2 normal heart sound present RATE: regular rate RHYTHM: r egular rhythm HEART SOUNDS: S1 normal heart sound present and S2 normal heart sound present GI: COMMON NORMALS: Normal to inspection, nondistended, normoactive bowel sounds present, Soft to palpation and non-tender Extremity: COMMON NORMALS: no calf tenderness and no pedal edema Neuro: COMMON NORMALS: patient oriented x3, CN's II-XII intact bilaterally, moves all extremities and no focal motor deficits Psych: COMMON NORMALS: mental status grossly normal Data 08/25/24 13:36 08/25/24 12:35 A&P Assessment and plan (1) Syncope: (2) NSTEMI (non-ST elevated myocardial infarction): Plan Syncopal episode ? Etiology unclear ? Does have bradycardia, hold metoprolol, telemetry monitoring ? CT head ? Cardiac echo ? Carotid artery ultrasound ? Orthostatic vitals ? Inflammatory markers NSTEMI ? No chest pain complaints ? Serial EKGs, serial troponins, telemetry monitoring ? Continue aspirin, statin x-rays cardiac echo -Cardiology consulted Full code Lovenox for DVT prophylaxis Spoke to patient, spoke to patient's sister at bedside, spoke to ER physician Attestations 2 Medical Necessity Statement*: Patient requires hospitalization, outpatient with observation, for syncopal episode, NSTEMI Diagnoses Syncope R55 NSTEMI (non-ST elevated myocardial infarction) I21.4
[2024-08-25 18:04] LABS: Erythrocyte Sedimentation Rate 31 mm/hr (0-10)
[2024-08-25 18:28] LABS: Procalcitonin 0.06 ng/mL (0-0.5)
[2024-08-25 18:39] LABS: C Reactive Protein 6.7 mg/L (0.0-4.9)
[2024-08-25 18:52] LABS: Lactic Sepsis W/Reflex 1.2 mmol/L (0.5-2.2)
--- NOTE | 2024-08-25 19:10 | ECG_ITS ---
[facility] Test Date: 2024-08-25 Pat Name: Huber Green Department: Room: 105 Gender: Male Patient Transporter: : 1950 Requested By: Zhang Wilson Order Number: [id number] Jim MD: Damaso Turner M.D. Measurements Intervals [place] Rate: 54 P: 41 UT: 202 QRS: -48 QRSD: 120 T: -22 QT: 443 QTc: 421 Interpretive Statements SINUS BRADYCARDIA LEFT ANTERIOR FASCICULAR BLOCK [QRS AXIS <= -45, QR IN I, RS IN II] MINIMAL VOLTAGE CRITERIA FOR LVH, CONSIDER NORMAL VARIANT [MEETS CRITERIA IN ONE OF: R(aVL), S(V1), R(V5), R(V5/V6)+S(V1)] Compared to ECG 08/25/2024 15:16:01 Sinus rhythm no longer present Ventricular premature complex(es) no longer present Incomplete right bundle-branch block no longer present T-wave abnormality no longer present Electronically Signed On 08-26-2024 17:05:05 FISHING TACKLE REPAIRER by Damaso Turner M.D. [id number]
[2024-08-25 20:33] LABS: Chol HDL Ratio 4.35 mg/dL (1.0-5.00); Cholesterol 174 mg/dL (0-200); HDL Cholesterol 40 mg/dL (60-100); LDL Cholesterol Calculated 108 mg/dL (50-129); Triglycerides 131 mg/dL (0-150)
[2024-08-25 20:34] LABS: Troponin 5 6HR 22.54 ng/L (0-15); Troponin 5 6HR Delta 4.54 ng/L (0-12)
[2024-08-25] MEDS: enoxaparin 40 mg/0.4 mL Syringe SUBCUT (21:28)
[2024-08-25] MEDS: sacubitril/valsartan 24-26 mg Tablet 2 EACH PO (21:28)
[2024-08-25] MEDS: pantoprazole 40 mg SDV IVP (21:29)
[2024-08-25 21:43] LABS: Thyroid Stimulating Hormone 2.94 uIU/mL (0.27-4.20)
[2024-08-25 22:06] LABS: Estmated Average Glucose 117; Hemoglobin A1C 5.7 % (4.0-6.0)
[2024-08-25] MEDS: TRAMadol 50 mg Tablet PO (22:07)
[2024-08-26] VITALS (8 sets, daily range): BP systolic 105–126; BP diastolic 51–84; PULSE 53–86; RESP 15–20; TEMP 36.5–37.1; O2SAT 88–96
[2024-08-26 02:47] LABS: Basophils % 0.4 %; Eosinophils # 0.2 10^3/uL (0.0-0.8); Eosinophils % 2.6 %; Hematocrit 40.7 % (37-53); Lymphocytes # 2.7 10^3/uL (0.8-4.8); Lymphocytes % 28.8 %; Mean Corpuscular HGB Conc 32.9 g/dL (30-55); Mean Corpuscular Hemoglobin 29.7 pg (27-33); Mean Corpuscular Volume 90.2 fl (82-101); Mean Platelet Volume 8.8 fL (7.4-10.4); Monocytes # 0.7 10^3/uL (0.2-0.9); Monocytes % 7.2 %; Neutrophils % 60.8 %; Nucleated Red Blood Cells % 0 %; Platelet Count 330 10^3/cmm (157-399); Red Blood Count 4.51 10^6/uL (3.85-5.65); Red Cell Distribution Width 13.1 % (12.1-15.1); White Blood Count 9.38 10^3/uL (3.29-11.43)
[2024-08-26 03:08] LABS: Anion Gap 13.3 (5-19); Blood Urea Nitrogen 16 mg/dL (8-23); Calcium 9.7 mg/dL (8.5-10.5); Carbon Dioxide 25 mmol/L (22-29); Chloride 105 mmol/L (98-107); Creatinine Clr Calc Pharmacy 91.2693; Glucose 96 mg/dL (65-115); Magnesium 2.3 mg/dL (1.7-2.3); Osmolality Calculated 289 mOsm/kg (285-295); Potassium 4.3 mmol/L (3.5-5.1); Sodium 139 mmol/L (136-145)
[2024-08-26 03:17] LABS: NT Pro B Type Natriuretic Pept 641 pg/mL (0-125)
[2024-08-26] MEDS: sacubitril/valsartan 24-26 mg Tablet 2 EACH PO (08:08)
[2024-08-26] MEDS: aspirin 81 mg EC Tablet PO (08:08)
[2024-08-26] MEDS: TRAMadol 50 mg Tablet PO (08:14)
[2024-08-26] MEDS: metoprolol succinate ER (24 HR) 25 mg Tablet PO (10:25)
--- NOTE | 2024-08-26 12:18 | PM.DCS ---
Discharge Providers Date of Admission: 08/25/24 19:17 Date of Discharge: August 26, 2024 Attending Provider at Admission: Obey Lacy MD Attending Provider at Discharge: Obey Lacy MD Primary Care Provider: LAMAR Hutchins Diagnoses at Discharge Discharge Diagnosis (1) Syncope: Status: Acute (2) NSTEMI (non-ST elevated myocardial infarction): Status: Acute Reason for Visit Reason for Visit: near syncope, weakness Hospital Course Hospital Course Huber Green is a 74 year old male with a past medical history of CABG, ischemic cardiomyopathy, hyperlipidemia, hypertension who presents [facility] for syncopal episode. Currently patient is alert oriented x 3, following all commands, patient's sister is at bedside, he tells me that he has been doing well recently, he has osteoarthritis of his back he has had back surgery, he tells me that at times his knees give out, he is fairly active, he likes to square dance, he squared downs not too long ago without any issues, no shortness of breath, no palpitations, no syncopal episodes. 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 friend helped move the callus, helped lift the suh, he tells me that while working his counts with his friend, he felt his knees gave out, and he went to the ground, he thinks he lost consciousness but is not exactly sure his friend thought he lost consciousness, no chest pain, no palpitations, no seizures, no strokelike symptoms no facial no slurring words, no focal weakness, no recent illness, no dysuria, hematuria, no recent medication change Patient was admitted to [facility] for syncopal episode -No significant electrolyte abnormalities -No evidence of UTI -No significant evidence of pneumonia -Did have mild troponin elevation, up to 22.54 no delta troponin significance, EKG no acute ST-T wave changes, no chest pain complaints, continue aspirin, statin, beta-uday on discharge follow-up with cardiology with outpatient for consideration of stress testing -Cardiac echo CONCLUSIONS Mild diffuse hypokinesis of the left ventricular ejection fraction of 45%. Mildly dilated LV cavity. Mild concentric ventricular hypertrophy. No gross abnormalities noted.trace tricuspid valve regurgitation. Estimated pulmonary artery peak systolic pressure 55 mmHg. Thickened aortic valve. Moderate aortic valve stenosis, mean gradient 13.4 mmHg, GLORIA 1.4 cm squared. Peak velocity of 2.4 m/s. Mildly increased left atrial size. Mild-moderate mitral valve regurgitation. There is no pericardial effusion. There are no intracardiac masses. Compared to the study from 11/19/2022, there may not be a significant change -Certainly patient's aortic stenosis could be playing a role to syncopal episode, follow-up with cardiology as outpatient -Carotid ultrasound no acute findings -Head CT no acute findings -Lumbar CT Components of spinal and foraminal stenosis as above. Most significant stenosis at L4-5. No complaints of back pain, but does report at times his knees giving out on him, received inpatient PT OT. Certainly this could be playing a role, follow-up with primary care provider as outpatient for consideration of following up with Ortho -After detailed discussion with patient, he felt that when he was working out in the [place], the ground was uneven and so he must of stepped in the wrong way, and at that time both of his knees gave out and he fell to the ground. Certainly patient's symptomatology could be musculoskeletal nonetheless, received inpatient PT OT, follow-up with primary care provider as outpatient for consideration of outpatient PT OT, consideration of referral to orthopedics -Patient was monitored as inpatient no chest pain, no potation's, no shortness of breath, no recurrent syncopal episodes -Patient did have bradycardia initially on admission, which has resolved throughout his hospitalization -Patient will be discharged on event monitor in place -If any any chest pain or shortness of breath go to emergency room -If any syncopal episodes please immediate come back to the hospital or call 9 11 Physical Exam Const: COMMON NORMALS: no acute distress and patient oriented x3 Resp: COMMON NORMALS: normal respiratory effort, No retractions, No use of accessory muscles and clear to auscultation bilaterally AUSCULTATION: clear to auscultation bilaterally Cardio: COMMON NORMALS: regular rate, regular rhythm, S1 normal heart sound present and S2 normal heart sound present RATE: regular rate RHYTHM: regular rhythm HEART SOUNDS: S1 normal heart sound present and S2 normal heart sound present GI: COMMON NORMALS: Normal to inspection, nondistended, normoactive bowel sounds present and non-tender Extremity: COMMON NORMALS: no pedal edema Neuro: COMMON NORMALS: patient oriented x3, CN's II-XII intact bilaterally, moves all extremities, no focal motor deficits and no sensory deficits noted Psych: COMMON NORMALS: mental status grossly normal Discharge Data Studies Completed and Pending Completed Studies During Hospitalization Category Date Time Status CT head wo con* [id number] Stat Cat Scan 08/25/24 17:[address] lumbar spine wo con* [id number] Stat Cat Scan 08/25/24 13:26 Completed XR chest 1V portable [id number] Stat Exams 08/25/24 13:09 Completed CV carotid duplex BI* [id number] Stat Ultrasound 08/25/24 17:33 Completed US echo complete [CV. echo complete* [id number]] Stat Ultrasound 08/25/24 17:21 Completed Radiology Impressions Chest X-Ray 08/25/24 13:09 Impression: Atherosclerosis and hyperinflation. Lumbar Spine CT 08/25/24 13:26 IMPRESSION: 1. No acute lumbar spine fracture. 2. Components of spinal and foraminal stenosis as above. Most significant stenosis at L4-5. Head CT 08/25/24 17:33 IMPRESSION: No acute intracranial abnormality. Laboratory Results WBC 9.38 10^3/uL (3.29-11.43) 08/26/24 02:17 RBC 4.51 10^6/uL (3.85-5.65) 08/26/24 02:17 Hgb 13.40 g/dL (11.27-16.99) 08/26/24 02:17 Hct 40.7 % (37-53) 08/26/24 02:17 MCV 90.2 fl (82-101) 08/26/24 02:17 MCH 29.7 pg (27-33) 08/26/24 02:17 MCHC 32.9 g/dL (30-55) 08/26/24 02:17 RDW 13.1 % (12.1-15.1) 08/26/24 02:17 Plt Count 330 10^3/cmm (157-399) 08/26/24 02:17 MPV 8.8 fL (7.4-10.4) 08/26/24 02:17 Neut % (Auto) 60.8 % 08/26/24 02:17 Lymph % (Auto) 28.8 % 08/26/24 02:17 [facility] % (Auto) 7.2 % 08/26/24 02:17 Eos % (Auto) 2.6 % 08/26/24 02:17 Baso % (Auto) 0.4 % 08/26/24 02:17 Neut # (Auto) 5.70 10^3/uL (1.8-7.7) 08/26/24 02:17 Lymph # (Auto) 2.7 10^3/uL (0.8-4.8) 08/26/24 02:17 [facility] # (Auto) 0.7 10^3/uL (0.2-0.9) 08/26/24 02:17 Eos # (Auto) 0.2 10^3/uL (0.0-0.8) 08/26/24 02:17 Baso # (Auto) 0.0 10^3/uL (0.0-0.1) 08/26/24 02:17 Nucleated RBC % (auto) 0 % 08/26/24 02:17 Nucleated RBCs # 0.0 /100WBC 08/26/24 02:17 ESR 31 mm/hr (0-10) H 08/25/24 13:36 Sodium 139 mmol/L (136-145) 08/26/24 02:17 Potassium 4.3 mmol/L (3.5-5.1) 08/26/24 02:17 Chloride 105 mmol/L (98-107) 08/26/24 02:17 Carbon Dioxide 25 mmol/L (22-29) 08/26/24 02:17 Anion Gap 13.3 (5-19) 08/26/24 02:17 BUN 16 mg/dL (8-23) 08/26/24 02:17 Creatinine 0.8 mg/dL (0.7-1.2) 08/26/24 02:17 GFR Calculation Not Reportable 08/26/24 02:17 Glucose 96 mg/dL (65-115) 08/26/24 02:17 Estimat Average Glucose 117 08/25/24 13:36 Hemoglobin A1c 5.7 % (4.0-6.0) 08/25/24 13:36 Calculated Osmolality 289 mOsm/kg (285-295) 08/26/24 02:17 Lactic Acid 1.2 mmol/L (0.5-2.2) 08/25/24 18:08 Calcium 9.7 mg/dL (8.5-10.5) 08/26/24 02:17 Magnesium 2.3 mg/dL (1.7-2.3) 08/26/24 02:17 Total Bilirubin 0.5 mg/dL (0.15-1.2) 08/25/24 12:35 AST 23 U/L (0-40) 08/25/24 12:35 ALT 19 U/L (0-41) 08/25/24 12:35 Alkaline Phosphatase 107 U/L (40-130) 08/25/24 12:35 Troponin T Baseline 18 ng/L (0-15) H 08/25/24 14:03 Troponin T 120 Minute 25.18 ng/L (0-15) H 08/25/24 16:04 Delta Troponin T 7.18 ABS# (0-10) 08/25/24 16:04 Troponin T Hi Sens 6Hr 22.54 ng/L (0-15) H 08/25/24 20:11 Troponin T Hi Sens 6Hr Delta 4.54 ng/L (0-12) 08/25/24 20:11 C-Reactive Protein 6.7 mg/L (0.0-4.9) H 08/25/24 12:35 NT-Pro-B Natriuret Pep 641 pg/mL (0-125) H 08/26/24 02:17 Total Protein 8.0 g/dL (6.6-8.7) 08/25/24 12:35 Albumin 4.5 g/dL (3.5-5.2) 08/25/24 12:35 Globulin 3.5 g/dL (1.3-4.6) 08/25/24 12:35 Triglycerides 131 mg/dL (0-150) 08/25/24 12:35 Cholesterol 174 mg/dL (0-200) 08/25/24 12:35 LDL Cholesterol, Calc 108 mg/dL (50-129) 08/25/24 12:35 HDL Cholesterol 40 mg/dL (60-100) L 08/25/24 12:35 LDL/HDL Ratio 2.70 RATIO (0.00-3.22) 08/25/24 12:35 Cholesterol/HDL Ratio 4.35 mg/dL (1.0-5.00) 08/25/24 12:35 Procalcitonin 0.06 ng/mL (0-0.5) 08/25/24 12:35 TSH 2.94 uIU/mL (0.27-4.20) 08/25/24 12:35 Urine Color Yellow (Yellow) 08/25/24 14:05 Urine Appearance Clear (CLEAR) 08/25/24 14:05 Urine pH 6.0 (5-7) 08/25/24 14:05 Ur Specific [place] 1.032 (1.005-1.030) H 08/25/24 14:05 Urine Protein Negative (Negative) 08/25/24 14:05 Urine Glucose (UA) 2+ (Normal) H 08/25/24 14:05 Urine Ketones Trace (Negative) 08/25/24 14:05 Urine Blood Negative (Negative) 08/25/24 14:05 Urine Nitrate Negative (Negative) 08/25/24 14:05 Urine Bilirubin Negative (Negative) 08/25/24 14:05 Urine Urobilinogen 1.0 mg/dL (Negative) 08/25/24 14:05 Ur Leukocyte Esterase Negative (Negative) 08/25/24 14:05 Urine RBC 0-2 /hpf (0-2) 08/25/24 14:05 Urine WBC 0-5 /hpf (0-5) 08/25/24 14:05 Ur Squamous Epith Cells 0-5 /hpf (0-5) 08/25/24 14:05 Amorphous Sediment Not Reportable 08/25/24 14:05 Urine Bacteria None seen /hpf (NONE) 08/25/24 14:05 Hyaline Casts 0-4 /lpf H 08/25/24 14:05 Vitals Last Vital Signs Temp 97.7 F 08/26/24 11:44 Pulse 83 08/26/24 11:44 Resp 15 08/26/24 07:53 BP 126/70 08/26/24 11:44 Pulse Ox 91 08/26/24 11:44 O2 Del Method Room Air 08/26/24 11:44 Discharge Plan Discharge Patient Disposition: Home Condition: Stable Prescriptions: Continued cholecalciferol (vitamin D3) 2,000 unit tablet 2,000 unit PO DAILY@0700 metoprolol succinate 25 mg tablet extended release 24 hr 25 mg PO DAILY aspirin [Adult Low Dose Aspirin] 81 mg tablet,delayed release (DR/EC) 81 mg PO DAILY Centrum Silver Ultra Men's 300-600-300 mcg tablet 1 tab PO DAILY nitroglycerin [Nitrostat] 0.4 mg tablet, sublingual 0.4 mg sublingual Q5M PRN (Reason: chest pain) Qty: 50 3RF Rx Instructions: do not exceed 3 doses per episode Jardiance 10 mg tablet 10 mg PO DAILY Qty: 30 5RF sacubitril-valsartan 49-51 mg tablet 1 tab PO BID Qty: 180 3RF rosuvastatin 20 mg Tablet 20 mg PO DAILY tramadol 50 mg Tablet 50 mg PO QID PRN (Reason: Pain) Discharge Orders: Discharge Order (Routine); Ordered 08/26/24 Ordered By: Obey Lacy Other Ambulatory Orders: MCT/Event Monitor 30 Days (Routine) Timeframe: 1 Day Facility: [facility] - Location: Radiology Ordered By: Obey Lacy Referrals: Damaso Turner MD [Physician] - 1 week (We have notified your physician's clinic of the need for a follow-up appointment to be scheduled. If you have not heard from them within the next 2 business days, please call them directly. ) Bertha Beyer, PRIVACY COMPLIANCE MANAGER [Primary Care Provider] - 09/02/24 9:30 am Discharge Diet: Cardiac Discharge Activity: Resume usual activity Patient Instructions: Syncope, Holter Monitor (GEN), High Troponin Levels (GEN), Chest Pain Stoplight, Opioid Safety Activity Restrictions/Additional Instructions: -if any reccurent any syncope episode go to emergency room -please see cardiology in 1 week -Wear event monitor as prescribed Discharge Attestations Time Spent in Discharge Care*: greater than 30 min Quality Metrics Clinical Quality Measures [ No reported AMI, CVA or VTE this stay] Coding Level of Care Code 84289 Total time (in minutes) for Discharge: 45 Diagnoses Syncope R55 NSTEMI (non-ST elevated myocardial infarction) I21.4
== END 2024-08-26 14:27 | disposition home or self-care (01) ==
LOC: ER 14:26 → CSU 19:18
PROVIDERS: Admitting Provider Family Medicine; Emergency Provider Family Medicine; PCP Nurse Practitioner; Visit Provider Family Medicine
DX: I21.4 Non-ST elevation (NSTEMI) myocardial infarction (principal); R55 Syncope and collapse; Z95.1 Presence of aortocoronary bypass graft; I25.5 Ischemic cardiomyopathy; E78.5 Hyperlipidemia, unspecified; I10 Essential (primary) hypertension; M47.9 Spondylosis, unspecified; Z98.890 Other specified postprocedural states; Z79.82 Long term (current) use of aspirin; Z82.49 Family history of ischemic heart disease and other diseases of the circulatory system; Z87.891 Personal history of nicotine dependence; I65.23 Occlusion and stenosis of bilateral carotid arteries
CPT/HCPCS: 36415; 70450; 71045; 72131; 80048; 80053; 80061; 81001; 83036; 83605; 83735; 83880; 84145; 84443; 84484; 85025; 85651; 86140; 93005; 93306; 93880; 94664; 96372; 96374; 96376; 97161; 99285; A9270; G0378; J1650; J2470

== ENCOUNTER 2025-01-10 12:30 | Inpatient (IN) | payer OTHER, MEDICARE, SELFPAY ==
[2025-01-10] VITALS (9 sets, daily range): BP systolic 121–172; BP diastolic 73–118; PULSE 57–96; RESP 17–18; TEMP 36.7–37.1; O2SAT 92–98; BMI 26.4; BMI 27.0
--- NOTE | 2025-01-10 12:46 | XRR_ITS ---
PROCEDURE INFORMATION: Exam: XR Chest Exam date and time: 01/10/2025 12:52 PM Age: 74 years old Clinical indication: Other: Syncope TECHNIQUE: Imaging protocol: Radiologic exam of the chest. Views: 1 view. COMPARISON: CR XR chest 1V portable [id number] 08/25/2024 1:42 PM FINDINGS: Lungs: Left basilar atelectasis. No focal consolidation. Pleural spaces: No sizable pleural effusion or pneumothorax. Heart/Mediastinum: No cardiomegaly. Bones/joints: Status post median sternotomy. XR/XR chest 1V portable [id number] IMPRESSION: No acute intrathoracic findings.
--- NOTE | 2025-01-10 12:46 | ECG_ITS ---
[facility] Test Date: 2025-01-10 Pat Name: Huber Green Department: Room: Gender: Male Decorating Consultant: : 1950 Requested By: Stuart Talavera Order Number: [id number] Reading MD: PATTIE AGUIRRE Measurements Intervals [place] Rate: 87 P: 44 NC: 186 QRS: -37 QRSD: 101 T: 58 QT: 379 QTc: 458 Interpretive Statements SINUS RHYTHM WITH FREQUENT VENTRICULAR PREMATURE COMPLEXES LEFT AXIS DEVIATION [QRS AXIS < -30] LEFT VENTRICULAR HYPERTROPHY AND ST-T CHANGE [VOLTAGE CRITERIA PLUS ST/T ABNORMALITY] INTERPRETATION BASED ON A DEFAULT AGE OF 40 YEARS Compared to ECG 08/25/2024 21:09:59 Ventricular premature complex(es) now present Left-axis deviation now present ST (T wave) deviation now present Sinus bradycardia no longer present Left anterior fascicular block no longer present Electronically Signed On 01-18-2025 22:45:50 CDT by PATTIE AGUIRRE [email or web address] [id number]
--- NOTE | 2025-01-10 13:31 | W.ED.SYNCOPE ---
HPI - Syncope General: Chief Complaint: Syncope Stated Complaint: passing out, weakness, SOB when he comes to Time Seen by Provider: 01/10/25 13:19 History of Present Illness: 74-year-old male presents emergency room complaining of syncopal episodes has had several over the last week. Last one was about 3 days ago. States he gets dizzy basically has complete syncopal episode wakes up on the floor he denies hitting his head. States he did injure some ribs and was seen for that. Associated symptoms: Deny abdominal pain, chest pain or fever(s) Related Data Home Medications ?Medication ?Instructions ?Recorded ?Confirmed cholecalciferol (vitamin D3) 50 2,000 unit PO DAILY@0700 09/16/19 01/11/25 mcg (2,000 unit) tablet aspirin 81 mg tablet,delayed 81 mg PO DAILY 05/05/22 01/11/25 release (Adult Low Dose Aspirin) metoprolol succinate 25 mg 25 mg PO DAILY 05/05/22 01/11/25 tablet,extended release 24 hr mxqowkvu-gy-vahyp 300 mcg-K 60 1 tab PO DAILY 05/05/22 01/11/25 mcg-lycop 600 mcg-lutein 300 mcg tablet (Centrum Silver Ultra Men's) rosuvastatin 20 mg tablet 20 mg PO DAILY 08/25/24 01/11/25 tramadol 50 mg tablet 50 mg PO QID PRN Pain 08/25/24 01/11/25 tamsulosin 0.4 mg capsule 0.4 mg PO DAILY 01/11/25 01/11/25 Previous Rx's ?Medication ?Instructions ?Recorded nitroglycerin 0.4 mg sublingual 0.4 mg sublingual Q5M PRN chest 01/23/22 tablet (Nitrostat) pain #50 tabs empagliflozin 10 mg tablet 10 mg PO DAILY #30 tabs 12/10/22 (Jardiance) sacubitril 49 mg-valsartan 51 mg 1 tab PO BID #180 tabs 12/10/22 tablet Allergies Allergy/AdvReac Type Severity Reaction Status Date / Time bee venom protein (honey bee) Allergy Unknown Verified 11/03/22 08:57 Review of Systems Const: Denies: fever(s) or chills Card: Denies: chest pain Resp: Denies: dyspnea GI: Denies: abdominal pain : Denies: dysuria, urinary frequency or urinary urgency Musc: Denies: neck pain or back pain Skin/Breast: Denies: rash PFSH ED PFSH: Medical History Ischemic cardiomyopathy Congestive heart failure Family history of prostate cancer Hypertension Hyperlipidemia Hearing loss Left inguinal pain Surgical History S/P CABG x 4 Family History Father CAD (coronary artery disease), Onset Age: 55 Cancer Grandmother CAD (coronary artery disease) Mother Diabetes Stroke Family/Other Diabetes Denies family history of Clotting disorder Dementia Chronic kidney disease (CKD) Suicide Anesthesia complication Bleeding disorder Lung disease Social History Smoking and tobacco/nicotine status: former use of tobacco/nicotine Second hand smoke exposure: No Alcohol intake: never Substance/Drug Use: never Adopted: No Caregiver/support person: No Lives independently: Yes Household members: spouse Housing: House Marital status: service: Yes Current occupational status: retired Current occupational exposures/hazards: No Pets and animals: No Sexually active: No Do you think of yourself as: Straight/Heterosexual Current gender identity: Male Roya/Yarsani: [employer] Special roya needs: No Agree to transfusion: No Physical Exam Const: GENERAL APPEARANCE: cooperative ORIENTATION/CONSCIOUSNESS: Yes awake, Yes oriented to person, Yes oriented to place and Yes oriented to time HENMT: COMMON NORMALS: normocephalic, atraumatic and hearing grossly normal bilaterally HEAD & SCALP: normocephalic and atraumatic Chest: OTHER: Pain reproducible palpation grossly anterior chest wall at the lower left sternal border no crepitus no subcutaneous emphysema Resp: COMMON NORMALS: normal respiratory effort, No retractions, No use of accessory muscles and clear to auscultation bilaterally AUSCULTATION: clear to auscultation bilaterally Cardio: COMMON NORMALS: regular rate and regular rhythm RATE: regular rate RHYTHM: regular rhythm HEART SOUNDS: Murmur heart sound present systolic Location: left sternal border Intensity: III/ GI: COMMON NORMALS: Soft to palpation and No hepatosplenomegaly present AUSCULTATION: Yes normoactive bowel sounds PALPATION: Yes Soft to palpation, No Tenderness to palpation present (GI), No Guarding due to palpation present (GI) and Yes No hepatosplenomegaly present Extremity: COMMON NORMALS: normal to inspection, capillary refill normal, no clubbing, cyanosis or edema, no calf tenderness and no pedal edema Neuro: SENSORIUM/ORIENTATION: Yes oriented to person, Yes oriented to place and Yes oriented to time Skin: COMMON NORMALS: no rashes or lesions noted GENERAL SKIN EXAM: no rashes or lesions noted Course Vital Signs: Vital signs: Vital Signs Temperature 98.0 F 01/11/25 12:00 Pulse Rate 69 01/11/25 12:00 Respiratory Rate 14 01/11/25 12:00 Blood Pressure 128/73 01/11/25 12:00 Pulse Oximetry 95 01/11/25 12:00 Oxygen Delivery Me thod Room Air 01/11/25 12:00 MDM - Syncope Medical Decision Making No evidence of injury from the trauma per se but he does have an atrial thrombus on the CTA of his chest no PE no pulmonary contusion no rib fractures. Patient started on heparin discussed with hospitalist will admit. Consulted cardiology. Reviewed findings with the patient. Initial EKG 01/10/2025 1242 sinus rhythm frequent PVCs, rate 87left ventricular hypertrophy no acute ST changes. Second 01/10/2025 1610 normal sinus rhythm no acute ST changes noted rate of 69 Medical Records I reviewed the patient's medical records. Lab Data I reviewed the patient's lab results. 01/11/25 04:36 01/11/25 04:36 Radiology Impressions Chest X-Ray 01/10/25 12:46 IMPRESSION: No acute intrathoracic findings. Chest CTA 01/10/25 13:40 IMPRESSION: 1. No pulmonary embolism. 2. Markedly enlarged LEFT ventricle. 3. Enlarged LEFT atrium with variable density. Variable density may be mixing of blood in the IV contrast. LEFT atrial thrombus extending into the atrial appendage should be considered as a possible etiology. 4. No pneumonia. 5. Prior CABG. 6. Indeterminate mediastinal and hilar lymph nodes. Face CT 01/10/25 13:40 IMPRESSION: No facial bone fracture. Head CT 01/10/25 13:40 IMPRESSION: 1. No acute intracranial hemorrhage or edema. 2. Moderate cerebral atrophy and small vessel disease. 3. No ventriculomegaly. 4. No skull fracture. Laboratory Results WBC 9.65 10^3/uL (3.29-11.43) 01/10/25 13:23 RBC 4.89 10^6/uL (3.85-5.65) 01/10/25 13:23 Hgb 14.60 g/dL (11.27-16.99) 01/10/25 13:23 Hct 43.2 % (37-53) 01/10/25 13:23 MCV 88.3 fl (82-101) 01/10/25 13:23 MCH 29.9 pg (27-33) 01/10/25 13:23 MCHC 33.8 g/dL (30-55) 01/10/25 13:23 RDW 12.6 % (12.1-15.1) 01/10/25 13:23 Plt Count 334 10^3/cmm (157-399) 01/10/25 13:23 MPV 9.0 fL (7.4-10.4) 01/10/25 13:23 Neut % (Auto) 73.9 % 01/10/25 13:23 Lymph % (Auto) 17.8 % 01/10/25 13:23 Colbert % (Auto) 5.9 % 01/10/25 13:23 Eos % (Auto) 1.6 % 01/10/25 13:23 Baso % (Auto) 0.4 % 01/10/25 13:23 Neut # (Auto) 7.13 10^3/uL (1.8-7.7) 01/10/25 13:23 Lymph # (Auto) 1.7 10^3/uL (0.8-4.8) 01/10/25 13:23 Colbert # (Auto) 0.6 10^3/uL (0.2-0.9) 01/10/25 13:23 Eos # (Auto) 0.2 10^3/uL (0.0-0.8) 01/10/25 13:23 Baso # (Auto) 0.0 10^3/uL (0.0-0.1) 01/10/25 13:23 Nucleated RBC % (auto) 0 % 01/10/25 13:23 Nucleated RBCs # 0.0 /100WBC 01/10/25 13:23 PT 13.20 SECONDS (12.1-14.9) 01/10/25 13:23 INR 0.94 (0.8-1.2) 01/10/25 13:23 Sodium 136 mmol/L (136-145) 01/10/25 13:23 Potassium 4.0 mmol/L (3.5-5.1) 01/10/25 13:23 Chloride 103 mmol/L (98-107) 01/10/25 13:23 Carbon Dioxide 22 mmol/L (22-29) 01/10/25 13:23 Anion Gap 15.0 (5-19) 01/10/25 13:23 BUN 12 mg/dL (8-23) 01/10/25 13:23 Creatinine 0.7 mg/dL (0.7-1.2) 01/10/25 13:23 GFR Calculation Not Reportable 01/10/25 13:23 Glucose 86 mg/dL (65-115) 01/10/25 13:23 Calculated Osmolality 281 mOsm/kg (285-295) L 01/10/25 13:23 Calcium 9.8 mg/dL (8.5-10.5) 01/10/25 13:23 Total Bilirubin 0.5 mg/dL (0.15-1.2) 01/10/25 13:23 AST 17 U/L (0-40) 01/10/25 13:23 ALT 18 U/L (0-41) 01/10/25 13:23 Alkaline Phosphatase 100 U/L (40-130) 01/10/25 13:23 Troponin T Baseline 14 ng/L (0-15) 01/10/25 13:23 Troponin T 120 Minute 23.96 ng/L (0-15) H 01/10/25 15:26 Delta Troponin T 9.96 ABS# (0-10) 01/10/25 15:26 NT-Pro-B Natriuret Pep 1148 pg/mL (0-125) H 01/10/25 13:23 Total Protein 7.5 g/dL (6.6-8.7) 01/10/25 13:23 Albumin 4.1 g/dL (3.5-5.2) 01/10/25 13:23 Globulin 3.4 g/dL (1.3-4.6) 01/10/25 13:23 All radiology interpretation(s) finalized by discharge Discharge Plan Discharge Patient Disposition: Admitted As Inpatient Admit Provider: Obey Lacy Clinical Impression: Left atrial mass, Chest pain, SOB (shortness of breath), Ischemic cardiomyopathy, Aortic stenosis, Syncope Condition: Stable Coding Level of Care Code ED [employer] Design 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
[2025-01-10 13:39] LABS: Basophils % 0.4 %; Eosinophils # 0.2 10^3/uL (0.0-0.8); Eosinophils % 1.6 %; Hematocrit 43.2 % (37-53); Lymphocytes # 1.7 10^3/uL (0.8-4.8); Lymphocytes % 17.8 %; Mean Corpuscular HGB Conc 33.8 g/dL (30-55); Mean Corpuscular Hemoglobin 29.9 pg (27-33); Mean Corpuscular Volume 88.3 fl (82-101); Monocytes # 0.6 10^3/uL (0.2-0.9); Monocytes % 5.9 %; Neutrophils # 7.13 10^3/uL (1.8-7.7); Neutrophils % 73.9 %; Nucleated Red Blood Cells % 0 %; Platelet Count 334 10^3/cmm (157-399); Red Blood Count 4.89 10^6/uL (3.85-5.65); Red Cell Distribution Width 12.6 % (12.1-15.1); White Blood Count 9.65 10^3/uL (3.29-11.43)
--- NOTE | 2025-01-10 13:40 | CT_ITS ---
WS: [id number] CT FACIAL BONES HISTORY: trauma TECHNIQUE: Images obtained from the supraorbital location through the mandible. Soft tissue and bone windows are reviewed. Coronal and sagittal reformats have also been submitted. DLP: 2414.[address] scans at [facility] use at least one of these dose optimization techniques: automated exposure control; mA and/or kV adjustment per patient size (includes targeted exams where dose is matched to clinical indication); or iterative reconstruction. COMPARISON: None available. Mild cortical disruption of the distal nasal bone but there is no overlying soft tissue edema. Zygomatic arches are intact. Mandibular condyles are normal. Orbits and globes are intact. No air-fluid levels within the sinuses. The visualized skull is intact. Lateral masses of the upper cervical spine are aligned. CT/CT facial bones wo con* [id number] IMPRESSION: No facial bone fracture.
--- NOTE | 2025-01-10 13:40 | CT_ITS ---
WS: [id number] CT CHEST ANGIOGRAPHY WITH REFORMATS HISTORY: trauma, syncope TECHNIQUE: Contiguous axial images are obtained through the chest during arterial injection of intravenous contrast. Images are reconstructed to evaluate the pulmonary arteries. MIP imaging also reviewed. All CT scans at [facility] use at least one of these dose optimization techniques: automated exposure control; mA and/or kV adjustment per patient size (includes targeted exams where dose is matched to clinical indication); or iterative reconstruction. CONTRAST: Omnipaque 350; 100 mL IV. DLP: 514.06 mGy.cm COMPARISON: None available. Good opacification of the pulmonary arteries. Pulmonary artery slightly dilated. No filling defect or pulmonary embolism. Mild atherosclerosis aorta. No aneurysmal dilatation. Variable attenuation and enhancement within the LEFT atrium. This is probably mixing of blood with the contrast. Possibility of thrombus in the LEFT atrium extending into the atrial appendage should be considered. LEFT heart is enlarged. LEFT ventricle is significantly enlarged. No pericardial effusion. No pleural effusion. Lungs are clear. Mild dependent changes at the lung bases. Prior CABG. Focal atelectasis at the lingula. Indeterminate mediastinal and hilar lymph nodes. Normal shape. Lymph nodes are slightly enlarged suggesting this may be a reactive process. Suprarenal aortic calcifications. Splenic artery calcifications. Increase in thoracic kyphosis. CT/CT angio chest PE protcl [id number] IMPRESSION: 1. No pulmonary embolism. 2. Markedly enlarged LEFT ventricle. 3. Enlarged LEFT atrium with variable density. Variable density may be mixing of blood in the IV contrast. LEFT atrial thrombus extending into the atrial ryann endage should be considered as a possible etiology. 4. No pneumonia. 5. Prior CABG. 6. Indeterminate mediastinal and hilar lymph nodes.
--- NOTE | 2025-01-10 13:40 | CT_ITS ---
WS: [id number] CT HEAD NONCONTRAST HISTORY: syncope after closed head injury TECHNIQUE: Contiguous axial imaging performed through the brain. Bone and soft tissue windows. Sagittal and coronal reformats reviewed. All CT scans at [facility] use at least one of these dose optimization techniques: automated exposure control; mA and/or kV adjustment per patient size (includes targeted exams where dose is matched to clinical indication); or iterative reconstruction. DLP: 2414.37 mGy.cm COMPARISON: 08/25/2024 No acute intracranial hemorrhage, midline shift or mass effect. Moderate bilateral cerebral atrophy and small vessel disease. Increased density within the cortex of the occipital lobe seen on the prior study also consistent with calcification and cortical laminar necrosis. Ventricles: Mildly dilated ventricles with no intraventricular blood. No inferior displacement of the cerebellar tonsils. Paranasal sinuses: As visualized are clear. Mastoid air cells: Well pneumatized. Calvarium and scalp: Skull is intact with no soft tissue edema or swelling. CT/CT head wo con* [id number] IMPRESSION: 1. No acute intracranial hemorrhage or edema. 2. Moderate cerebral atrophy and small vessel disease. 3. No ventriculomegaly. 4. No skull fracture.
[2025-01-10 13:49] LABS: INR 0.94 (0.8-1.2)
[2025-01-10 13:57] LABS: Troponin(5th) Baseline 14 ng/L (0-15)
[2025-01-10 14:04] LABS: Alanine Aminotransferase 18 U/L (0-41); Albumin Level 4.1 g/dL (3.5-5.2); Alkaline Phosphatase 100 U/L (40-130); Aspartate Amino Transferase 17 U/L (0-40); Blood Urea Nitrogen 12 mg/dL (8-23); Calcium 9.8 mg/dL (8.5-10.5); Carbon Dioxide 22 mmol/L (22-29); Chloride 103 mmol/L (98-107); Creatinine Clr Calc Pharmacy 91.2693; Globulin 3.4 g/dL (1.3-4.6); Glucose 86 mg/dL (65-115); NT Pro B Type Natriuretic Pept 1148 pg/mL (0-125); Osmolality Calculated 281 mOsm/kg (285-295); Sodium 136 mmol/L (136-145); Total Bilirubin 0.5 mg/dL (0.15-1.2); Total Protein 7.5 g/dL (6.6-8.7)
--- NOTE | 2025-01-10 14:46 | ECG_ITS ---
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: : 1950 Requested By: Stuart Talavera Order Number: [id number] Reading MD: PATTIE AGUIRRE Measurements Intervals [place] Rate: 69 P: 35 IL: 182 QRS: -34 QRSD: 101 T: 7 QT: 418 QTc: 449 Interpretive Statements SINUS RHYTHM LEFT AXIS DEVIATION [QRS AXIS < -30] Compared to ECG 01/10/2025 12:42:55 Ventricular premature complex(es) no longer present Left ventricular hypertrophy no longer present ST (T wave) deviation no longer present Electronically Signed On 01-18-2025 22:53:55 CDT by PATTIE AGUIRRE [id number]
[2025-01-10] MEDS: iohexol 350 mg/mL 500 mL Btl (per mL) IV (14:56)
--- NOTE | 2025-01-10 16:31 | P.CONIM_ITS ---
<Statement entered by Pernell Townsend M.D - 01/10/25 23:25> Patient was evaluated and cared for in conjunction with an advanced practice practitioner. I personally examined the patient and reviewed the chart and all pertinent data including imaging, telemetry, and laboratory results. I discussed the patient in detail with the advanced practice practitioner. Please see their note for complete consult note, results and agreed upon plan of care for the patient. We will obtain echocardiogram. Further recommendations based on the findings.Continue heparin gtt at this time. GENERAL: Patient is alert and oriented HEART: Regular S1 and S2 LUNGS: Clear to auscultation bilaterally EXTREMITIES: Lower extremities with no edema Providers/Reason For Consult 2 Consulting Physician/Specialty*: Dr Townsend, cardiology Reason for Consult*: syncope, possible left atrial thrombus Requesting Physician: Dr Vazquez Attending Physician: Dr Lacy Primary Care Provider: LAMAR Hutchins History of Present Illness History of Present Illness Huber Green is a 74 year old male with past medical history of CAD (status post CABG x 4 in 2021), CHF (LVEF 45% in August, previously 22%), ischemic cardiomyopathy, mild to moderate mitral regurgitation, moderate aortic stenosis (mean gradient 13 mmHg, GLORIA 1.4 cm?), hypertension, hyperlipidemia. He presents to the emergency room today due to multiple syncopal episodes (5 in total) over the last week. He he fell down on some gravel 2 days ago when he got tripped up by a dog chain, felt a rock impact his chest on the left side below the fifth rib, it is tender to touch still, also hit the left side of his face. He had an event monitor in August of this year, showing sinus rhythm, ventricular ectopic burden 3%, 1 episode of VT 2 seconds in duration with rate 134 bpm. No atrial fibrillation. Does not take any anticoagulation. He has been on Entresto 49/51 mg twice daily since his last visit in the cardiology clinic with nm 12/03/2022. EKG shows sinus rhythm with some PVCs. Prior to the last week he has not had any chest pain, worsening shortness of breath, orthopnea, lower extremity edema. Troponin series: 14-> 23. BNP 1148. He appears euvolemic. Renal function is normal. CTA of the chest showed enlarged left atrium with variable density, possibly mixing up blood with IV contrast however could be thrombus in the left atrium extending into the appendage. Review of Systems 2 Const: Denies: fever(s), chills, change in weight, fatigue or diaphoresis Eyes: Denies: change in vision ENMT: Denies: epistaxis Card: Denies: chest pain, palpitations, irregular heart rhythm, edema, syncope, pre-syncope, dyspnea on exertion, orthopnea or leg pain with exertion Resp: Denies: dyspnea, productive cough or wheezing GI: Denies: nausea, vomiting, hematemesis, hematochezia or melena : Denies: hematuria Musc: Denies: extremity swelling Lior/Lymph: Denies: easy bruising or easy bleeding Medications/Allergies Home Medications ?Medication ?Instructions ?Recorded ?Confirmed ?Last Taken ?Type cholecalciferol (vitamin D3) 50 2,000 unit PO DAILY@07 00 09/16/19 08/25/24 01/28/22 06:00 History mcg (2,000 unit) tablet nitroglycerin 0.4 mg sublingual 0.4 mg sublingual Q5M PRN chest 01/23/22 08/25/24 Unknown Rx tablet (Nitrostat) pain #50 tabs aspirin 81 mg tablet,delayed 81 mg PO DAILY 05/05/22 0 08/25/24 Unknown History release (Adult Low Dose Aspirin) metoprolol succinate 25 mg 25 mg PO DAILY 05/05/2205/11 Unknown History tablet,extended release 24 hr hinfzlkr-dr-lrxtv 300 mcg-K 60 1 tab PO DAILY 05/05/22 08/25/24 Unknown History mcg-lycop 600 mcg-lutein 300 mcg tablet (Centrum Silver Ultra Men's) empagliflozin 10 mg tablet 10 mg PO DAILY #30 tabs 08/25/24 Unknown Rx (Jardiance) sacubitril 49 mg-valsartan 51 mg 1 tab PO BID #180 tab s 12/10/22 08/25/24 Unknown Rx tablet rosuvastatin 20 mg tablet 20 mg PO DAILY 08/25/2405/11 Unknown History tramadol 50 mg tablet 50 mg PO QID PRN Pain 08/25/24 08/25/24 History 50 mg Allergies Allergy/AdvReac Type Severity Reaction Status Date / Time bee venom protein (honey bee) Allergy Unknown Verified 11/03/22 08:57 PFSH Acute 2 PFSH: Medical History Ischemic cardiomyopathy Congestive heart failure Family history of prostate cancer Hypertension Hyperlipidemia Hearing loss Left inguinal pain Surgical History S/P CABG x 4 Family History Father CAD (coronary artery disease), Onset Age: 55 Cancer Grandmother CAD (coronary artery disease) Mother Diabetes Stroke Family/Other Diabetes Denies family history of Clotting disorder Dementia Chronic kidney disease (CKD) Suicide Anesthesia complication Bleeding disorder Lung disease Social History Smoking and tobacco/nicotine status: former use of tobacco/nicotine Second hand smoke exposure: No Alcohol intake: never Substance/Drug Use: never Adopted: No Caregiver/support person: No Lives independently: Yes Household members: spouse Housing: House Marital status: service: Yes Current occupational status: retired Current occupational exposures/hazards: No Pets and animals: No Sexually active: No Do you think of yourself as: Straight/Heterosexual Current gender identity: Male Roya/Sikhism: Muslim Special roya needs: No Agree to transfusion: No Vitals/I&O/Wt Last Vital Signs Temp 98.1 F 01/10/25 12:36 Pulse 70 01/10/25 15:00 Resp 17 01/10/25 12:36 BP 159/76 01/10/25 15:00 Pulse Ox 97 01/10/25 15:00 O2 Del Method Room Air 01/10/25 15:00 Weight last 48 hrs Weight 190 lb Physical Exam 2 Const: COMMON NORMALS: no acute distress and patient oriented x3 GENERAL APPEARANCE: cooperative and comfortable ORIENTATION/CONSCIOUSNESS: Yes awake, Yes oriented to person, Yes oriented to place and Yes oriented to time Chest: COMMONS NORMALS: normal inspection of the chest and normal palpation of entire chest wall CHEST: Yes Symmetrical chest wall rise Resp: COMMON NORMALS: normal respiratory effort, No retractions, No use of accessory muscles and clear to auscultation bilaterally EFFORT & INSPECTION: Yes symmetric chest movement AUSCULTATION: clear to auscultation bilaterally Cardio: COMMON NORMALS: regular rate, regular rhythm, S1 normal heart sound present, S2 normal heart sound present, No gallops present (Cardio), No clicks present (Cardio), No murmurs present (Cardio) and No rub (Cardio) RATE: r egular rate RHYTHM: regular rhythm HEART SOUNDS: S1 normal heart sound present and S2 normal heart sound present PERIPHERAL PULSES: radial pulses present Extremity: COMMON NORMALS: no pedal edema Neuro: COMMON NORMALS: patient oriented x3 and moves all extremities S ENSORIUM/ORIENTATION: Yes oriented to person, Yes oriented to place and Yes oriented to time Data 01/10/25 13:23 01/10/25 13:23 A&P Assessment and plan (1) Aortic stenosis: (2) Congestive heart failure: (3) Ischemic cardiomyopathy: (4) Hypertension: (5) Atrial thrombus: Plan Will plan for echocardiogram to evaluate left atrial thrombus further. He does not have any history of atrial fibrillation, 30-day event monitor in August did not show any arrhythmia either. He is already started on heparin infusion which he should continue. Blood pressure has been elevated recently, would recommend uptitrating Entresto if he remains hypertensive. PDMP PDMP Reviewed: Not Reviewed Consult Attestations 2 Medical Necessity Statement: Evaluation of syncope and atrial thrombus Coding Level of Care Code Acute Code for [facility] Diagnoses Aortic stenosis I35.0 Congestive heart failure I50.9 Ischemic cardiomyopathy I25.5 Hypertension I10 Atrial thrombus I51.3
[2025-01-10] MEDS: heparin 5,000 unit/mL INJ 1 mL IVP (16:33)
--- NOTE | 2025-01-10 16:33 | USCV_ITS ---
Huber Green Age: 74 Gender: M : 1950 Exam Date: 01/10/2025 20:29 Ordering Phys: Joselin Rodriguez Technologist: ROSINA Exam Location: [facility] – [place] Indication: atrial thrombus hx CAD s/p CABG 2021, hx ischemic CM, HL, HTN, hx moderate . BP: 162 / 110 HR: 53 Rhythm: Sinus bradycardia Technical Quality: Adequate MEASUREMENTS (Male / Female) Normal Values 2D ECHO LV Diastolic Diameter PLAX 5.4 cm 4.2 - 5.9 / 3.9 - 5.3 cm IVS Diastolic Thickness 1.5 cm 0.6 - 1.0 / 0.6 - 0.9 cm IVS Systolic Thickness 1.4 cm LVPW Diastolic Thickness 1.4 cm 0.6 - 1.0 / 0.6 - 0.9 cm LVPW Systolic Thickness 1.9 cm LVOT Diameter 2.2 cm LV Ejection Fraction 2D Teich 30.4 % LV Ejection Fraction MOD 4C 44.4 % LV Ejection Fraction MOD 2C 46.6 % LV Ejection Fraction 2C AL 46.8 % LA Diameter 3.8 cm Aorta at Sinotubular Diameter 3.7 cm IVC Diameter 1.4 cm M-MODE LA Ao Ratio MM 1.4 AV Cusp Separation MM 1.0 cm DOPPLER AV Peak Velocity 238.0 cm/s LVOT Peak Velocity 59.0 cm/s AV Area Cont Eq vti 1.0 cm squared AV Area Cont Eq pk 1.0 cm squared MV Peak Velocity 112.0 cm/s MV Area PHT 2.5 cm squared Mitral E to A Ratio 0.6 TR Peak Velocity 278.0 cm/s TR Peak Gradient 30.9 mmHg PV Peak Velocity 159.0 cm/s FINDINGS Left Ventricle Moderately increased left ventricular cavity size. Left ventricular ejection fraction is estimated at 30 %. Global left ventricular hypokinesis. Grade I/IV diastolic dysfunction (abnormal relaxation filling pattern), normal to mildly elevated filling pressures. Right Ventricle The right ventricle is normal in size and function. Right Atrium The right atrium is normal in size. Left Atrium The left atrium is normal in size. Mitral Valve Moderately thickened mitral valve. No mitral valve stenosis. Mild-moderate mitral valve regurgitation. Aortic Valve Severe aortic valve calcification. Moderate aortic valve stenosis, mean gradient 11.4 mmHg, GLORIA 1 cm squared.trace to mild aortic valve regurgitation. Tricuspid Valve Structurally normal tricuspid valve without significant stenosis or regurgitation. Pulmonary artery systolic pressure is normal. Pulmonic Valve Structurally normal pulmonic valve without significant stenosis. There is no pulmonic regurgitation. Pericardium Normal pericardium without effusion. Aorta Normal ascending aorta dimension. IVC The inferior vena cava appears normal. CONCLUSIONS Moderately increased left ventricular cavity size. Left ventricular ejection fraction is estimated at 30 %. Global left ventricular hypokinesis. Grade I/IV diastolic dysfunction (abnormal relaxation filling pattern), normal to mildly elevated filling pressures. Severe aortic valve calcification. Moderate aortic valve stenosis, mean gradient 11.4 mmHg, GLORIA 1 cm squared.trace to mild aortic valve regurgitation. Moderately thickened mitral valve. No mitral valve stenosis. Mild-moderate mitral valve regurgitation. There is no pericardial effusion. Right atrial pressure is 5 around 5 mm of mercury. Fatmata Cifuentes MD (Electronically Signed) Final Date: 11 Jan 2025 13:29 S
[2025-01-10] MEDS: heparin drip 25,000 UNIT/500 ML PREMIX 24 UNIT IV (16:34)
[2025-01-10 16:36] LABS: Troponin 5 2HR 23.96 ng/L (0-15); Troponin 5 2HR Delta 9.96 ABS# (0-10)
--- NOTE | 2025-01-10 17:06 | PM.HP ---
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 Patient tells me in the last few days, he has had 5 episodes of passing out, he is not exactly sure if he completely passed out in all of them, but he does remember that and 1 episode he did blackout. 1 episode he tells me he was exerting himself, he was walking, when he felt lightheaded and he passed out. He tells me that 1 episode, he tied up his dog, but the chains he got wrapped around his legs, and he fell forward, he had a bruise across his chest, he is tender under the left nipple. No history of atrial fibrillation, is not on any blood thinners except aspirin Medications/Allergies Home Medications ?Medication ?Instructions ?Recorded ?Confirmed ?Last Taken ?Type cholecalciferol (vitamin D3) 50 2,000 unit PO DAILY@0700 09/16/19 08/25/24 01/28/22 06:00 History mcg (2,000 unit) tablet nitroglycerin 0.4 mg sublingual 0.4 mg sublingual Q5M PRN chest 01/23/22 08/25/24 Unknown Rx tablet (Nitrostat) pain #50 tabs aspirin 81 mg tablet,delayed 81 mg PO DAILY 05/05/22 08/25/24 Unknown History release (Adult Low Dose Aspirin) metoprolol succinate 25 mg 25 mg PO DAILY 05/05/22 08/25/24 Unknown History tablet,extended release 24 hr wgrvbzke-zj-scjmn 300 mcg-K 60 1 tab PO DAILY 05/05/22 08/25/24 Unknown History mcg-lycop 600 mcg-lutein 300 mcg tablet (Centrum Silver Ultra Men's) empagliflozin 10 mg tablet 10 mg PO DAILY #30 tabs 12/10/22 08/25/24 Unknown Rx (Jardiance) sacubitril 49 mg-valsartan 51 mg 1 tab PO BID #180 tabs 12/10/22 08/25/24 Unknown Rx tablet rosuvastatin 20 mg tablet 20 mg PO DAILY 08/25/24 08/25/24 Unknown History tramadol 50 mg tablet 50 mg PO QID PRN Pain 08/25/24 08/25/24 08/25/24 History 50 mg Allergies Allergy/AdvReac Type Severity Reaction Status Date / Time bee venom protein (honey bee) Allergy Unknown Verified 11/03/22 08:57 PFSH Acute PFSH: Medical History Ischemic cardiomyopathy Congestive heart failure Family history of prostate cancer Hypertension Hyperlipidemia Hearing loss Left inguinal pain Surgical History S/P CABG x 4 Family History Father CAD (coronary artery disease), Onset Age: 55 Cancer Grandmother CAD (coronary artery disease) Mother Diabetes Stroke Family/Other Diabetes Denies family history of Clotting disorder Dementia Chronic kidney disease (CKD) Suicide Anesthesia complication Bleeding disorder Lung disease Social History Smoking and tobacco/nicotine status: former use of tobacco/nicotine Second hand smoke exposure: No Alcohol intake: never Substance/Drug Use: never Adopted: No Caregiver/support person: No Lives independently: Yes Household members: spouse Housing: House Marital status: service: Yes Current occupational status: retired Current occupational exposures/hazards: No Pets and animals: No Sexually active: No Do you think of yourself as: Straight/Heterosexual Current gender identity: Male Orya/Shinto: Congregational Special roya needs: No Agree to transfusion: No Vitals/I&O/Wt Last Vital Signs Temp 98.1 F 01/10/25 12:36 Pulse 70 01/10/25 15:00 Resp 17 01/10/25 12:36 BP 159/76 01/10/25 15:00 Pulse Ox 97 01/10/25 15:00 O2 Del Method Room Air 01/10/25 15:00 Weight last 48 hrs Weight 86.183 kg Physical Exam Const: COMMON NORMALS: no acute distress and patient oriented x3 HENMT: COMMON NORMALS: normocephalic HEAD & SCALP: normocephalic Eye: COMMON NORMALS: Equal, round and reactive pupils present and EOMs intact bilaterally Neck/C-Spine: COMMON NORMALS: no JVD Resp: COMMON NORMALS: normal respiratory effort, No retractions, No use of accessory muscles and clear to auscultation bilaterally AUSCULTATION: clear to auscultation bilaterally Cardio: COMMON NORMALS: no JVD, regular rate, regular rhythm, S1 normal heart sound present and S2 normal heart sound present RATE: regular rate RHYTHM: regular rhythm HEART SOUNDS: S1 normal heart sound present and S2 normal heart sound present GI: COMMON NORMALS: Normal to inspection, nondistended, normoactive bowel sounds present, Soft to palpation, non-tender, No hepatosplenomegaly present, no masses and no bruits PALPATION: Yes Soft to palpation and Yes No hepatosplenomegaly present Extremity: COMMON NORMALS: no pedal edema Neuro: COMMON NORMALS: patient oriented x3, CN's II-XII intact bilaterally and moves all extremities Psych: COMMON NORMALS: mental status grossly normal Data 01/10/25 13:23 01/10/25 13:23 A&P Assessment and plan (1) Syncope: (2) Left atrial mass: Plan Left atrial mass CT angiogram the chest ordered CCESSION #: [id number] CT/CT angio chest PE protcl [id number] IMPRESSION: 1. No pulmonary embolism. 2. Markedly enlarged LEFT ventricle. 3. Enlarged LEFT atrium with variable density. Variable density may be mixing of blood in the IV contrast. LEFT atrial thrombus extending into the atrial appendage should be considered as a possible etiology. 4. No pneumonia. 5. Prior CABG. 6. Indeterminate mediastinal and hilar lymph nodes. Plan - Cardiac echo - Continue heparin drip - Spoke to cardiology, cardiology consulted Syncopal episode - History of syncope -Neurochecks, NIH stroke scale - Will await cardiac echocardiogram results - Once stable check orthostatic vitals - Await UA - Head CT no acute findings - He had an event monitor completed Pain under left nipple, placed lidocaine patch Full code Lovenox for DVT prophylaxis PDMP PDMP Reviewed: Not Reviewed Attestations Medical Necessity Statement*: Patient requires hospitalization, inpatient, greater than 2 midnights for left atrial mass, syncopal episode Diagnoses Syncope R55 Left atrial mass I51.89
--- NOTE | 2025-01-10 18:46 | ECG_ITS ---
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1950 Requested By: Stuart Talavera Order Number: [id number] Reading MD: PATTIE AGUIRRE Measurements Intervals [place] Rate: 61 P: 26 MO: 184 QRS: -42 QRSD: 118 T: -21 QT: 406 QTc: 412 Interpretive Statements SINUS RHYTHM WITH OCCASIONAL SUPRAVENTRICULAR PREMATURE COMPLEXES LEFT AXIS DEVIATION [QRS AXIS < -30] POSSIBLE LEFT VENTRICULAR HYPERTROPHY [VOLTAGE CRITERIA PLUS LAE OR QRS WIDENING] Compared to ECG 01/10/2025 16:10:43 No significant changes Electronically Signed On 01-18-2025 22:54:42 CDT by PATTIE AGUIRRE [email or web address]
[2025-01-10 19:47] LABS: Troponin 5 6HR 13.58 ng/L (0-15)
[2025-01-10 19:48] LABS: Troponin 5 6HR Delta -0.42 ng/L (0-12)
[2025-01-10] MEDS: atorvastatin 40 mg Tablet 80 MG PO (21:16)
[2025-01-10] MEDS: pantoprazole 40 mg SDV IVP (21:21)
[2025-01-10] MEDS: TRAMadol 50 mg Tablet PO (21:50)
[2025-01-10 23:29] LABS: Partial Thromboplastin Time 56.1 SECONDS (23.9-36.7)
[2025-01-11] VITALS (9 sets, daily range): BP systolic 126–136; BP diastolic 69–81; PULSE 56–71; RESP 14–18; TEMP 36.6–36.8; O2SAT 94–97
[2025-01-11 04:47] LABS: Basophils # 0.1 10^3/uL (0.0-0.1); Basophils % 0.5 %; Eosinophils # 0.2 10^3/uL (0.0-0.8); Eosinophils % 2.4 %; Hematocrit 42.7 % (37-53); Lymphocytes % 21.7 %; Mean Corpuscular HGB Conc 32.6 g/dL (30-55); Mean Corpuscular Volume 92.2 fl (82-101); Monocytes # 0.7 10^3/uL (0.2-0.9); Monocytes % 7.1 %; Neutrophils # 6.38 10^3/uL (1.8-7.7); Neutrophils % 68.1 %; Nucleated Red Blood Cells % 0 %; Platelet Count 323 10^3/cmm (157-399); Red Blood Count 4.63 10^6/uL (3.85-5.65); Red Cell Distribution Width 12.9 % (12.1-15.1); White Blood Count 9.39 10^3/uL (3.29-11.43)
[2025-01-11 05:08] LABS: Anion Gap 14.7 (5-19); Blood Urea Nitrogen 13 mg/dL (8-23); Calcium 9.6 mg/dL (8.5-10.5); Carbon Dioxide 26 mmol/L (22-29); Chloride 104 mmol/L (98-107); Creatinine Clr Calc Pharmacy 81.8673; Glucose 91 mg/dL (65-115); Osmolality Calculated 290 mOsm/kg (285-295); Potassium 4.7 mmol/L (3.5-5.1); Sodium 140 mmol/L (136-145)
[2025-01-11 05:16] LABS: Partial Thromboplastin Time 58.8 SECONDS (23.9-36.7)
[2025-01-11 06:46] LABS: Bilirubin Urine Negative (Negative); Blood Urine Negative (Negative); Glucose Urine UA 3+ (Normal); Ketones Urine Trace (Negative); Leukocyte Esterase Urine Negative (Negative); Nitrate Urine Negative (Negative); Protein Urine Negative (Negative); Urine Appearance Clear (CLEAR); Urine Color Yellow (Yellow)
[2025-01-11 06:51] LABS: Add Urine Microscopic? YES; Bacteria Urine None Seen /hpf; Hyaline Casts Urine 0-4 /lpf; RBC Urine 0-2 /hpf (0-2); Squamous Epithelial Cell Urine 0-5 /hpf (0-5); WBC Urine 0-5 /hpf (0-5)
[2025-01-11 07:06] LABS: Specific Gravity, Urine 1.037 (1.005-1.030); UA Slide Review UA Slide Review Perf
[2025-01-11 07:07] LABS: Add Urine Culture? No; Sperm Urine 1+ /hpf
[2025-01-11] MEDS: sacubitril/valsartan 24-26 mg Tablet 2 EACH PO ×2 (09:10→17:08)
[2025-01-11] MEDS: aspirin 81 mg EC Tablet PO (09:10)
[2025-01-11] MEDS: TRAMadol 50 mg Tablet PO ×3 (09:10→23:57)
[2025-01-11] MEDS: multivitamin therapeutic Tablet 1 TAB PO (09:11)
[2025-01-11] MEDS: metoprolol succinate ER (24 HR) 25 mg Tablet 12.5 MG PO (09:16)
--- NOTE | 2025-01-11 10:00 | PC.CHAP ---
Pastoral Care Encounter/Spiritual Assessment Type of Contact [] Declined human performance technologist visit [] Patient/Family/Request visit [] Outpatient visit [] Follow-up visit [] Physician referral [] Code/Alert [x] Routine visit [] Staff referral [] Actively dying [] Patient sleeping [] Family support [] [] Out of room [] Palliative care [] [] Receiving care in room [] Pre-surgical visit [] Trauma [] Long length of stay [] ICU visit [] Other: Relational/Emotional Strength [x] Patient feels connected with others/family/visitors/staff [] Distress [] Loneliness/isolation [] Abandonment Spirituality of Patient [x] Person of Roya [] Attends Adventism of their Roya [x] Believes in Prayer [] Reads Bible or Bahai materials [] There are Spiritual issues to be addressed Transmitter Chief Interventions [x] Prayer [x] Active listening [] Non-anxious presence [x] Spiritual/emotional support [] Crisis/trauma care [] Spiritual counseling [] Bereavement support [] Provided bereavement packet [] Provided Bible/devotional materials [] Provided toy/stuffed animal, coloring book to patient or family member [] Provided Communion [] Anointing/Hermann [] Salvation [x] Completed spiritual assessment [] Other: Impact on Illness or Injury [] Angry [] Fearful [] Anxious [] Often cries [] Exhaustion [] Unable to work [] Unable to attend orthodox [] Unable to walk/stand [] Unable to read [] Unable to drive [] Unable to eat/drink [] Unable to sleep [] Unable to be with family [] Patient intubated [] Other: Summary Time spent with patient 5 min
--- NOTE | 2025-01-11 11:15 | P.PN_ITS ---
<Statement entered by Pernell Townsend M.D - 01/14/25 13:21> Patient was cared for in conjunction with an advanced practice practitioner.? I reviewed the chart and all pertinent data including imaging, telemetry, and laboratory results.? I discussed the patient in detail with the advanced practice practitioner.? Please see? their note for complete progress note, testing results and agreed upon plan of care for the patient. Patient's transthoracic echocardiogram appears to have EF of 40%.( reported as 30% however on further review appears better. In order to rule out left atrial appendage thrombus, we will proceed with CELINE tomrrow. NPO past midnight Subjective 2 Subjective: Echocardiogram performed yesterday revealed some shadowing in the left atrium. Given the findings on the CT scan, he requires CELINE in order to rule out thrombus. No chest pain or shortness of breath reported. Blood pressure has been stable. Vitals/I&O/Wt Last Vital Signs Temp 97.8 F 01/11/25 07:31 Pulse 62 01/11/25 07:31 Resp 17 01/11/25 07:31 BP 135/81 01/11/25 07:31 Pulse Ox 95 01/11/25 07:31 O2 Del Method Room Air 01/11/25 07:31 01/10/25 01/11/25 01/11/25 22:59 06:59 14:59 Intake Total 480 / 788.0 308.0 / 788.0 130.8 / 130.8 Output Total 800 / 800 Balance -320 / -12.0 308.0 / -12.0 130.8 / 130.8 Weight last 48 hrs Weight 192 lb 14.4 oz Weight 194 lb Weight 190 lb Physical Exam 2 Const: COMMON NORMALS: no acute distress and patient oriented x3 GENERAL APPEARANCE: cooperative and comfortable ORIENTATION/CONSCIOUSNESS: Yes awake, Yes oriented to person, Yes oriented to place and Yes oriented to time Chest: COMMONS NORMALS: normal inspection of the chest and normal palpation of entire chest wall CHEST: Yes Symmetrical chest wall rise Resp: COMMON NORMALS: normal respiratory effort, No retractions, No use of accessory muscles and clear to auscultation bilaterally EFFORT & INSPECTION: Yes symmetric chest movement AUSCULTATION: clear to auscultation bilaterally Cardio: COMMON NORMALS: regular rate, regular rhythm, S1 normal heart sound present, S2 normal heart sound present, No gallops present (Cardio), No clicks present (Cardio) and No rub (Cardio) RATE: regular rate RHYTHM: regular rhythm HEART SOUNDS: S1 normal heart sound present, S2 normal heart sound present and Murmur heart sound present systolic Intensity: II/ PERIPHERAL PULSES: radial pulses present Extremity: COMMON NORMALS: no pedal edema Neuro: COMMON NORMALS: patient oriented x3 and moves all extremities S ENSORIUM/ORIENTATION: Yes oriented to person, Yes oriented to place and Yes oriented to time Data 01/11/25 04:36 01/11/25 04:36 A&P Assessment and plan (1) Atrial thrombus: (2) Aortic stenosis: (3) Congestive heart failure: (4) Hypertension: Plan Discussed with the patient the findings of the echocardiogram, that atrial thrombus cannot be completely ruled out based on this study. Recommendation for CELINE tomorrow. Questions were answered and he is in agreement to proceed. He should be n.p.o. after midnight tonight, may eat today. Continue heparin infusion until thrombus ruled out. Full read on the echocardiogram is pending. PDMP PDMP Reviewed: Not Reviewed Attestations 2 Medical Necessity Statement*: CELINE tomorrow Coding Level of Care Code Acute Code for [facility] Diagnoses Atrial thrombus I51.3 Aortic stenosis I35.0 Congestive heart failure I50.9 Hypertension I10
[2025-01-11] MEDS: heparin drip 25,000 UNIT/500 ML PREMIX 26 UNIT IV (12:49)
--- NOTE | 2025-01-11 16:48 | P.PN_ITS ---
Subjective 2 Subjective: Patient was seen this morning, currently alert oriented x 3, following all commands, no chest pain, no palpitations, syncopal episodes Vitals/I&O/Wt Last Vital Signs Temp 98.1 F 01/11/25 16:00 Pulse 56 L 01/11/25 16:00 Resp 14 01/11/25 16:00 BP 136/72 01/11/25 16:00 Pulse Ox 97 01/11/25 16:00 O2 Del Method Room Air 01/11/25 16:00 01/11/25 01/11/25 01/11/25 06:59 14:59 22:59 Intake Total 308.0 / 788.0 421.933 / 421.933 Balance 308.0 / -12.0 421.933 / 421.933 Weight last 48 hrs Weight 87.498 kg Weight 87.997 kg Weight 86.183 kg Physical Exam 2 Const: COMMON NORMALS: no acute distress and patient oriented x3 Resp: COMMON NORMALS: normal respiratory effort, No retractions, No use of accessory muscles and clear to auscultation bilaterally AUSCULTATION: clear to auscultation bilaterally Cardio: COMMON NORMALS: regular rate, regular rhythm, S1 normal heart sound present and S2 normal heart sound present RATE: regular rate RHYTHM: r egular rhythm HEART SOUNDS: S1 normal heart sound present and S2 normal heart sound present GI: COMMON NORMALS: Normal to inspection, nondistended, normoactive bowel sounds present and non-tender Extremity: COMMON NORMALS: no pedal edema Neuro: COMMON NORMALS: patient oriented x3 Psych: COMMON NORMALS: mental status grossly normal Data 01/11/25 04:36 01/11/25 04:36 A&P Assessment and plan (1) Syncope: (2) Left atrial mass: Plan Left atrial mass CT angiogram the chest ordered CCESSION #: [id number] CT/CT angio chest PE protcl [id number] IMPRESSION: 1. No pulmonary embolism. 2. Markedly enlarged LEFT ventricle. 3. Enlarged LEFT atrium with variable density. Variable density may be mixing of blood in the IV contrast. LEFT atrial thrombus extending into the atrial appendage should be considered as a possible etiology. 4. No pneumonia. 5. Prior CABG. 6. Indeterminate mediastinal and hilar lymph nodes. Plan - Cardiac echo CONCLUSIONS Moderately increased left ventricular cavity size. Left ventricular ejection fraction is estimated at 30 %. Global left ventricular hypokinesis. Grade I/IV diastolic dysfunction (abnormal relaxation filling pattern), normal to mildly elevated filling pressures. Severe aortic valve calcification. Moderate aortic valve stenosis, mean gradient 11.4 mmHg, GLORIA 1 cm squared.trace to mild aortic valve regurgitation. Moderately thickened mitral valve. No mitral valve stenosis. Mild-moderate mitral valve regurgitation. There is no pericardial effusion. Right atrial pressure is 5 around 5 mm of mercury. - Continue heparin drip - Spoke to cardiology, cardiology consulted, plan on CELINE tomorrow Syncopal episode - History of syncope -Neurochecks, NIH stroke scale - Will await cardiac echocardiogram results - Once stable check orthostatic vitals - Await UA - Head CT no acute findings - He had an event monitor completed Pain under left nipple, Full code Lovenox for DVT prophylaxis PDMP PDMP Reviewed: Not Reviewed Attestations 2 Medical Necessity Statement*: Patient requires hospitalization for left atrial mass, syncopal episode, inpatient, admission requiring transesophageal echocardiogram Diagnoses Syncope R55 Left atrial mass I51.89
[2025-01-11] MEDS: efferdent effervescent 1 EACH DENTAL (17:10)
[2025-01-11 19:44] LABS: Partial Thromboplastin Time 53.2 SECONDS (23.9-36.7)
[2025-01-11] MEDS: atorvastatin 40 mg Tablet 80 MG PO (20:16)
[2025-01-11] MEDS: pantoprazole 40 mg SDV IVP (20:16)
[2025-01-12] VITALS: BP 127/80; PULSE 67; RESP 17; TEMP 36.8; O2SAT 95
[2025-01-12 03:22] LABS: Basophils # 0.1 10^3/uL (0.0-0.1); Basophils % 0.6 %; Eosinophils # 0.3 10^3/uL (0.0-0.8); Hematocrit 40.4 % (37-53); Lymphocytes # 2.2 10^3/uL (0.8-4.8); Lymphocytes % 26.9 %; Mean Corpuscular HGB Conc 32.4 g/dL (30-55); Mean Corpuscular Hemoglobin 29.4 pg (27-33); Mean Corpuscular Volume 90.6 fl (82-101); Monocytes # 0.7 10^3/uL (0.2-0.9); Monocytes % 9.3 %; Neutrophils # 4.72 10^3/uL (1.8-7.7); Neutrophils % 58.9 %; Nucleated Red Blood Cells % 0 %; Platelet Count 285 10^3/cmm (157-399); Red Blood Count 4.46 10^6/uL (3.85-5.65); Red Cell Distribution Width 12.9 % (12.1-15.1)
[2025-01-12 03:44] LABS: Partial Thromboplastin Time 73.2 SECONDS (23.9-36.7)
[2025-01-12 03:48] VITALS: BP 121/68; PULSE 58; RESP 15; TEMP 36.7; O2SAT 93
[2025-01-12 05:48] VITALS: PULSE 53
--- NOTE | 2025-01-12 07:08 | ANES.PREANE2 ---
Pre-Anesthetic Assessment Height/Weight: Height 1.8 m Weight 86.727 kg Temp Pulse Resp BP Pulse Ox O2 Del Method 98.0 F 53 L 15 121/68 93 Room Air 01/12/25 03:48 01/12/25 05:48 01/12/25 03:48 01/12/25 03:48 01/12/25 03:48 01/12/25 03:48 Familial anesthetic complications: None Was Beta Regino taken within 24 hours: N/A Was Clonidine taken within 24 hours: N/A Last intake: > 8 hrs Social No alcohol and No tobacco Exam alert, oriented x 3, clear to auscultation bilaterally and regular rate & rhythm Airway Mallampati: Class II CV/HEM Congestive Heart Failure and Hypertension Able to achieve > 4 METS, 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 Left ventricular ejection fraction is estimated at 30 %. Global left ventricular hypokinesis. Grade I/IV diastolic dysfunction (abnormal relaxation filling pattern), normal to mildly elevated filling pressures. Severe aortic valve calcification. Moderate aortic valve stenosis, mean gradient 11.4 mmHg, GLORIA 1 cm squared.trace to mild aortic valve regurgitation. Moderately thickened mitral valve. No mitral valve stenosis. Mild-moderate mitral valve regurgitation. There is no pericardial effusion. Right atrial pressure is 5 around 5 mm of mercury. Metabolic Hyperlipidemia Anesthetic Plan ASA status: 4 Anesthesia: MAC Risk of > 500 ml blood loss (7ml/kg in children): No Medications/Allergies Home Medications ?Medication ?Instructions ?Recorded ?Confirmed ?Last Taken ?Type cholecalciferol (vitamin D3) 50 2,000 unit PO DAILY@0700 09/16/19 01/11/25 01/10/25 History mcg (2,000 unit) tablet nitroglycerin 0.4 mg sublingual 0.4 mg sublingual Q5M PRN chest 01/23/22 01/11/25 Unknown Rx tablet (Nitrostat) pain #50 tabs aspirin 81 mg tablet,delayed 81 mg PO DAILY 05/05/22 01/11/25 01/10/25 History release (Adult Low Dose Aspirin) metoprolol succinate 25 mg 25 mg PO DAILY 05/05/22 01/11/25 01/10/25 History tablet,extended release 24 hr aclbllpf-ut-setgl 300 mcg-K 60 1 tab PO DAILY 05/05/22 01/11/25 01/10/25 History mcg-lycop 600 mcg-lutein 300 mcg tablet (Centrum Silver Ultra Men's) empagliflozin 10 mg tablet 10 mg PO DAILY #30 tabs 12/10/22 01/11/25 01/10/25 Rx (Jardiance) sacubitril 49 mg-valsartan 51 mg 1 tab PO BID #180 tabs 12/10/22 01/11/25 01/10/25 Rx tablet rosuvastatin 20 mg tablet 20 mg PO DAILY 08/25/24 01/11/25 01/10/25 History tramadol 50 mg tablet 50 mg PO QID PRN Pain 08/25/24 01/11/25 01/10/25 History tamsulosin 0.4 mg capsule 0.4 mg PO DAILY 01/11/25 01/11/25 01/10/25 History Allergies Allergy/AdvReac Type Severity Reaction Status Date / Time bee venom protein (honey bee) Allergy Unknown Verified 11/03/22 08:57 Current Medications Generic Name Dose Route Start Last Admin Trade Name Freq PRN Reason Stop Dose Admin Aspirin 81 mg 01/11/25 09:00 01/11/25 09:10 Aspirin 81 Mg Ec Tablet PO 81 mg DAILY LUANNE Administration Atorvastatin Calcium 80 mg 01/10/25 21:00 01/11/25 20:16 Atorvastatin 40 Mg Tablet PO 80 mg BEDTIME LUANNE Administration Denture Adhesive 1 each 01/11/25 16:50 01/11/25 17:10 Efferdent Effervescent DENTAL 1 each PRN PRN Administration clean dentures Heparin Sodium/Sodium Chloride 25,000 unit in 500 mls @ 0 mls/hr 01/10/25 16:00 01/12/25 03:46 Heparin Drip IV 16.24 unit/kg/hr CONT LUANNE 28 mls/hr Protocol Titration Per Protocol Metoprolol Succinate 12.5 mg 01/11/25 09:15 01/11/25 09:16 Metoprolol Succinate Er (24 Hr) 25 Mg Tablet PO 12.5 mg DAILY LUANNE Administration Multivitamins Therapeutic 1 tab 01/11/25 09:00 01/11/25 09:11 Multivitamin Therapeutic Tablet PO 1 tab DAILY LUANNE Administration Pantoprazole Sodium 40 mg 01/10/25 21:00 01/11/25 20:16 Pantoprazole 40 Mg Sdv IVP 40 mg Q24H LUANNE Administration Sacubitril/Valsartan 2 each 01/11/25 09:00 01/11/25 17:08 Sacubitril/Valsartan 24-26 Mg Tablet PO 2 each BID LUANNE Administration Tramadol HCl 50 mg 01/10/25 21:21 01/11/25 23:57 Tramadol 50 Mg Tablet PO 50 mg QID PRN Administration MODERATE PAIN PFSH Anesthesia Medical History Ischemic cardiomyopathy Congestive heart failure Family history of prostate cancer Hypertension Hyperlipidemia Hearing loss Left inguinal pain Surgical History S/P CABG x 4 Family History Father CAD (coronary artery disease), Onset Age: 55 Cancer Grandmother CAD (coronary artery disease) Mother Diabetes Stroke Family/Other Diabetes Denies family history of Clotting disorder Dementia Chronic kidney disease (CKD) Suicide Anesthesia complication Bleeding disorder Lung disease Social History Smoking and tobacco/nicotine status: former use of tobacco/nicotine Second hand smoke exposure: No Alcohol intake: never Substance/Drug Use: never Adopted: No Caregiver/support person: No Lives independently: Yes Household members: spouse Housing: House Marital status: service: Yes Current occupational status: retired Current occupational exposures/hazards: No Pets and animals: No Sexually active: No Do you think of yourself as: Straight/Heterosexual Current gender identity: Male Roya/Holiness: Confucianist Special roya needs: No Agree to transfusion: No Data Anesthesia 01/12/25 03:15 01/11/25 04:36 Short CBC 01/10/25 01/11/25 01/12/25 Range/Units 13:23 04:36 03:15 WBC 9.65 9.39 8.00 (3.29-11.43) 10^3/uL Hgb 14.60 13.90 13.10 (11.27-16.99) g/dL Hct 43.2 42.7 40.4 (37-53) % MCV 88.3 92.2 90.6 (82-101) fl Plt Count 334 323 285 (157-399) 10^3/cmm Neut % (Auto) 73.9 68.1 58.9 % Neut # (Auto) 7.13 6.38 4.72 (1.8-7.7) 10^3/uL BMP 01/10/25 01/11/25 13:23 04:36 Sodium 136 140 Potassium 4.0 4.7 Chloride 103 104 Carbon Dioxide 22 26 BUN 12 13 Creatinine 0.7 0.9 Glucose 86 91 Calcium 9.8 9.6 Cardiac Enzymes 01/10/25 01/10/25 01/10/25 Range/Units 13:23 15:26 19:13 Troponin T Baseline 14 (0-15) ng/L Troponin T 120 Minute 23.96 H (0-15) ng/L Delta Troponin T 9.96 (0-10) ABS# Troponin T Hi Sens 6Hr 13.58 (0-15) ng/L Troponin T Hi Sens 6Hr Delta -0.42 L (0-12) ng/L NT-Pro-B Natriuret Pep 1148 H (0-125) pg/mL Liver Function 01/10/25 Range/Units 13:23 Total Bilirubin 0.5 (0.15-1.2) mg/dL AST 17 (0-40) U/L ALT 18 (0-41) U/L Alkaline Phosphatase 100 (40-130) U/L Albumin 4.1 (3.5-5.2) g/dL Urine 01/11/25 Range/Units 05:12 Urine Color Yellow (Yellow) Urine Appearance Clear (CLEAR) Urine pH 6.0 (5-7) Ur Specific [place] 1.037 H (1.005-1.030) Urine Protein Negative (Negative) Urine Glucose (UA) 3+ H (Normal) Urine Ketones Trace (Negative) Urine Nitrate Negative (Negative) Urine Bilirubin Negative (Negative) Ur Leukocyte Esterase Negative (Negative) Urine RBC 0-2 (0-2) /hpf Urine WBC 0-5 (0-5) /hpf Coags 01/10/25 01/10/25 01/11/25 13:23 22:33 04:36 PT 13.20 INR 0.94 APTT 56.1 H 58.8 H 01/11/25 01/11/25 01/12/25 10:23 18:33 03:15 PT INR APTT 51.0 H 53.2 H 73.2 H Cardiac Studies: Echocardiogram 01/10/25 Sestamibi Stress Test (Cardiology) 01/22/22 Cardiac Event Monitor 09/13/24
[2025-01-12 07:45] VITALS: BP 132/73; PULSE 49; RESP 14; TEMP 36.9; O2SAT 92
[2025-01-12] MEDS: heparin drip 25,000 UNIT/500 ML PREMIX 28 UNIT IV (07:45)
--- NOTE | 2025-01-12 08:30 | USCV_ITS ---
Huber Green Age: 74 Gender: M : 1950 Exam Date: 01/12/2025 08:28 Ordering Phys: Joselin Rodriguez Technologist: Exam Location: [facility] [place] Indication: ? la mass BP: / HR: Rhythm: Sinus Technical Quality: MEASUREMENTS (Male / Female) Normal Values 2D ECHO LV Ejection Fraction MOD 4C 40.7 % Medications Per anesthesia team Complications None Proc. Components After anesthesia team sedated patient, we proceeded with advancing probe. FINDINGS Left Ventricle Left ventricle is normal in size. LV systolic function is moderately reduced with EF of 40%. Right Ventricle Normal in size Right Atrium Normal in size Left Atrium Normal in size. No thrombus seen LA Appendage No left atrial appendage thrombus seen. IA Septum Grossly normal. Mitral Valve Structurally normal mitral valve. Mild mitral regurgitation Aortic Valve Structurally normal. Tricuspid Valve Grossly normal Pulmonic Valve Grossly normal Pericardium Normal Aorta Normal CONCLUSIONS LV systolic function is moderately reduced with EF of 40% No left atrial or appendage thrombus seen Mild mitral regurgitation Pernell Townsend MD (Electronically Signed) Final Date: 17 January 2025 10:34 S
--- NOTE | 2025-01-12 08:36 | W.PM.OPSUD ---
Surgery/Procedure H&P Update DATE OF PROCEDURE: January 12, 2025 DATE H&P PERFORMED: 01/10/25 H&P UPDATE INFORMATION: I have reviewed H&P completed within last 30 days, I have examined patient prior to procedure and Changes to prior documentation as noted here CHANGES TO PREVIOUS DOCUMENTATION: Plan for CELINE to rule out left atrial thrombus PREOP DIAGNOSIS: Rule out left atrial thrombus PRIMARY INDICATION FOR PROCEDURE: Rule out left atrial thrombus PLANNED PROCEDURE: Transesophageal echocardiogram Anesthesia team is available PATIENT REASSESSED PRIOR TO SEDATION, WITH NO CHANGE NOTED: Yes
--- NOTE | 2025-01-12 08:51 | PC.NURSE ---
Addendum entered by Naresh Mendoza RN 01/12/25 08:57: result: post dx: No Atrial Thrombus per Dr. Townsend. Original Note: CELINE time out provided at 0848AM. PATIENT SITTER in room for sedation monitoring. pt positioned to left side for imaging.
--- NOTE | 2025-01-12 08:54 | P.PN_ITS ---
<Statement entered by Pernell Townsend M.D - 01/14/25 13:31> Patient was evaluated and cared for in conjunction with an advanced practice practitioner.? I personally examined the patient and reviewed the chart and all pertinent data including imaging, telemetry, and laboratory results.? I discussed the patient in detail with the advanced practice practitioner.? Please see? their note for complete progress note, testing results and agreed upon plan of care for the patient. Patient had transesophageal echocardiogram that did not reveal atrial appendage thrombus. EF is better on CELINE and is around 40%. 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 GENERAL: Patient is alert, awake and oriented x3. HEART: Regular S1 and S2 LUNGS: Clear to auscultate bilaterally. CENTRAL NERVOUS SYSTEM: Grossly nonfocal. EXTREMITIES: Lower extremities without edema bilaterally. Subjective 2 Subjective: He has done well overnight, vital signs are stable. CELINE performed this morning, no atrial thrombus present. He can discharge home today. Will hold metoprolol as he has some periods of bradycardia and placed 30-day event monitor prior to discharge. We can consider a stress test as an outpatient if syncope continues. Vitals/I&O/Wt Last Vital Signs Temp 98.5 F 01/12/25 07:45 Pulse 49 L 01/12/25 07:45 Resp 14 01/12/25 07:45 BP 132/73 01/12/25 07:45 Pulse Ox 92 01/12/25 07:45 O2 Del Method Room Air 01/12/25 07:45 01/11/25 01/12/25 01/12/25 22:59 06:59 14:59 Intake Total 436.733 / 1065.399 206.733 / 1065.399 126.867 / 126.867 Output Total 400 / 2050 1450 / 2050 300 / 300 Balance 36.733 / -984.601 -1243.267 / -984.601 -173.133 / -173.133 Weight last 48 hrs Weight 191 lb 3.2 oz Weight 192 lb 14.4 oz Weight 194 lb Weight 190 lb Physical Exam 2 Const: COMMON NORMALS: no acute distress and patient oriented x3 GENERAL APPEARANCE: cooperative and comfortable ORIENTATION/CONSCIOUSNESS: Yes awake, Yes oriented to person, Yes oriented to place and Yes oriented to time Chest: COMMONS NORMALS: normal inspection of the chest and normal palpation of entire chest wall CHEST: Yes Symmetrical chest wall rise Resp: COMMON NORMALS: normal respiratory effort, No retractions, No use of accessory muscles and clear to auscultation bilaterally EFFORT & INSPECTION: Yes symmetric chest movement AUSCULTATION: clear to auscultation bilaterally Cardio: COMMON NORMALS: regular rate, regular rhythm, S1 normal heart sound present, S2 normal heart sound present, No gallops present (Cardio), No clicks present (Cardio) and No rub (Cardio) RATE: regular rate RHYTHM: regular rhythm HEART SOUNDS: S1 normal heart sound present, S2 normal heart sound present and Murmur heart sound present systolic Intensity: II/ PERIPHERAL PULSES: radial pulses present Extremity: COMMON NORMALS: no pedal edema Neuro: COMMON NORMALS: patient oriented x3 and moves all extremities S ENSORIUM/ORIENTATION: Yes oriented to person, Yes oriented to place and Yes oriented to time Data 01/12/25 03:15 01/11/25 04:36 A&P Assessment and plan (1) Atrial thrombus: Ruled out (2) Aortic stenosis: (3) Ischemic cardiomyopathy: (4) Congestive heart failure: (5) Hypertension: Plan Atrial thrombus ruled out with CELINE this morning. Continue aspirin, Jardiance, rosuvastatin, Entresto. Plan to discharge home Follow up with cardiology clinic in 2 weeks. PDMP PDMP Reviewed: Not Reviewed Attestations 2 Medical Necessity Statement*: DC home today Coding Level of Care Code Acute Code for g Fwd Diagnoses Atrial thrombus I51.3 Aortic stenosis I35.0 Cardiac valve disease etiology: nonrheumatic Ischemic cardiomyopathy I25.5 Congestive heart failure I50.9 Hypertension I10
--- NOTE | 2025-01-12 09:07 | PC.NURSE ---
Physician notification Verified with dr abdelrahman moser if heparin needs to be stopped or hold and metoprolol needs to be on hold due to pt's HR low 50s. per dr abdelrahman moser to stop heparin and hold off on metoprolol today.
[2025-01-12 09:29] LABS: Partial Thromboplastin Time 61.1 SECONDS (23.9-36.7)
--- NOTE | 2025-01-12 09:37 | PM.PROC ---
Procedure Note: Date of procedure: 01/12/25 Pre-procedure diagnosis: Rule out left atrial thrombus Post-procedure diagnosis: other (No left atrial thrombus) Procedure: Transesophageal echocardiogram: No evidence of left atrial thrombus. LV EF is 40%. Performing Provider: Pernell Townsend Complications: None Condition: stable Disposition: no change Coding Level of Care Code Acute Code for g Fwd
[2025-01-12] MEDS: aspirin 81 mg EC Tablet PO (09:45)
[2025-01-12] MEDS: sacubitril/valsartan 24-26 mg Tablet 2 EACH PO (09:45)
[2025-01-12] MEDS: multivitamin therapeutic Tablet 1 TAB PO (09:45)
--- NOTE | 2025-01-12 11:59 | P.DS_ITS ---
Discharge Providers Date of Admission: 01/10/25 17:02 Date of Discharge: January 12, 2025 Attending Provider at Admission: Obey Lacy MD Attending Provider at Discharge: Obey Lacy MD Primary Care Provider: LAMAR Hutchins Diagnoses at Discharge Discharge Diagnosis (1) Atrial thrombus: Status: Acute (2) Aortic stenosis: Status: Acute Qualifiers: Cardiac valve disease etiology: nonrheumatic Qualified Code(s): I35.0 - Nonrheumatic aortic (valve) stenosis (3) Ischemic cardiomyopathy: Status: Acute (4) Congestive heart failure: Status: Acute (5) Hypertension: Status: Acute Reason for Visit Reason for Visit: passing out, weakness, SOB when he comes to Hospital Course Hospital Course Huber Green is a 74 year old male with a history of CABG, ischemic cardiomyopathy, hyperlipidemia, hypertension, history of syncope, history of moderate aortic valve stenosis, 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 Patient tells me in the last few days, he has had 5 episodes of passing out, he is not exactly sure if he completely passed out in all of them, but he does remember that and 1 episode he did blackout. 1 episode he tells me he was exerting himself, he was walking, when he felt lightheaded and he passed out. He tells me that 1 episode, he tied up his dog, but the chains he got wrapped around his legs, and he fell forward, he had a bruise across his chest, he is tender under the left nipple. No history of atrial fibrillation, is not on any blood thinners except aspirin Patient was admitted to [facility] for left atrial mass, started on anticoagulant therapy, cardiology consulted Left atrial mass CT angiogram the chest ordered CCESSION #: [id number] CT/CT angio chest PE protcl [id number] IMPRESSION: 1. No pulmonary embolism. 2. Markedly enlarged LEFT ventricle. 3. Enlarged LEFT atrium with variable density. Variable density may be mixing of blood in the IV contrast. LEFT atrial thrombus extending into the atrial appendage should be considered as a possible etiology. 4. No pneumonia. 5. Prior CABG. 6. Indeterminate mediastinal and hilar lymph nodes. Plan - Cardiac echo CONCLUSIONS Moderately increased left ventricular cavity size. Left ventricular ejection fraction is estimated at 30 %. Global left ventricular hypokinesis. Grade I/IV diastolic dysfunction (abnormal relaxation filling pattern), normal to mildly elevated filling pressures. Severe aortic valve calcification. Moderate aortic valve stenosis, mean gradient 11.4 mmHg, GLORIA 1 cm squared.trace to mild aortic valve regurgitation. Moderately thickened mitral valve. No mitral valve stenosis. Mild-moderate mitral valve regurgitation. There is no pericardial effusion. Right atrial pressure is 5 around 5 mm of mercury. Transesophageal echocardiogram, no evidence of left atrial thrombus, EF 40% - Patient was discharged home For acute on chronic syncopal episodes, complaints of exertional shortness of breath, concerns for moderate aortic stenosis playing a significant role - Will have patient follow-up with cardiology as outpatient for consideration of aortic valve replacement - Patient was advised to ambulate with care - Discharge with event monitor - If any recurrent syncopal episode please go to emergency room For his pain under left nipple concern for bruised rib, continue conservative intervention Physical Exam Const: COMMON NORMALS: no acute distress and patient oriented x3 Resp: COMMON NORMALS: normal respiratory effort, No retractions, No use of accessory muscles and clear to auscultation bilaterally AUSCULTATION: clear to auscultation bilaterally Cardio: COMMON NORMALS: regular rate, regular rhythm, S1 normal heart sound present and S2 normal heart sound present RATE: regular rate RHYTHM: regular rhythm HEART SOUNDS: S1 normal heart sound present and S2 normal heart sound present GI: COMMON NORMALS: Normal to inspection, nondistended, normoactive bowel sounds present and non-tender Extremity: COMMON NORMALS: no pedal edema Neuro: COMMON NORMALS: patient oriented x3 Psych: COMMON NORMALS: mental status grossly normal Discharge Data Studies Completed and Pending Completed Studies During Hospitalization Category Date Time Status CT angio chest PE protcl [id number] Stat Cat Scan 01/10/25 13:[address] facial bones wo con* [id number] Stat Cat Scan 01/10/25 13:[address] head wo con* [id number] Stat Cat Scan 01/10/25 13:40 Completed XR chest 1V portable [id number] Stat Exams 01/10/25 12:46 Completed CV. echo complete* [id number] Stat Ultrasound 01/10/25 16:33 Completed Pending at discharge Category Date Time Status Complete Blood Count w/Auto AM LABS Lab 01/13/25 04:00 Ordered Complete Blood Count w/Auto AM LABS Lab 01/14/25 04:00 Ordered CV. echo transesophageal [id number] Routine Ultrasound 01/12/25 08:30 Taken Radiology Impressions Chest X-Ray 01/10/25 12:46 IMPRESSION: No acute intrathoracic findings. Chest CTA 01/10/25 13:40 IMPRESSION: 1. No pulmonary embolism. 2. Markedly enlarged LEFT ventricle. 3. Enlarged LEFT atrium with variable density. Variable density may be mixing of blood in the IV contrast. LEFT atrial thrombus extending into the atrial appendage should be considered as a possible etiology. 4. No pneumonia. 5. Prior CABG. 6. Indeterminate mediastinal and hilar lymph nodes. Face CT 01/10/25 13:40 IMPRESSION: No facial bone fracture. Head CT 01/10/25 13:40 IMPRESSION: 1. No acute intracranial hemorrhage or edema. 2. Moderate cerebral atrophy and small vessel disease. 3. No ventriculomegaly. 4. No skull fracture. Laboratory Results WBC 8.00 10^3/uL (3.29-11.43) 01/12/25 03:15 RBC 4.46 10^6/uL (3.85-5.65) 01/12/25 03:15 Hgb 13.10 g/dL (11.27-16.99) 01/12/25 03:15 Hct 40.4 % (37-53) 01/12/25 03:15 MCV 90.6 fl (82-101) 01/12/25 03:15 MCH 29.4 pg (27-33) 01/12/25 03:15 MCHC 32.4 g/dL (30-55) 01/12/25 03:15 RDW 12.9 % (12.1-15.1) 01/12/25 03:15 Plt Count 285 10^3/cmm (157-399) 01/12/25 03:15 MPV 9.0 fL (7.4-10.4) 01/12/25 03:15 Neut % (Auto) 58.9 % 01/12/25 03:15 Lymph % (Auto) 26.9 % 01/12/25 03:15 [place] % (Auto) 9.3 % 01/12/25 03:15 Eos % (Auto) 4.0 % 01/12/25 03:15 Baso % (Auto) 0.6 % 01/12/25 03:15 Neut # (Auto) 4.72 10^3/uL (1.8-7.7) 01/12/25 03:15 Lymph # (Auto) 2.2 10^3/uL (0.8-4.8) 01/12/25 03:15 [place] # (Auto) 0.7 10^3/uL (0.2-0.9) 01/12/25 03:15 Eos # (Auto) 0.3 10^3/uL (0.0-0.8) 01/12/25 03:15 Baso # (Auto) 0.1 10^3/uL (0.0-0.1) 01/12/25 03:15 Nucleated RBC % (auto) 0 % 01/12/25 03:15 Nucleated RBCs # 0.0 /100WBC 01/12/25 03:15 PT 13.20 SECONDS (12.1-14.9) 01/10/25 13:23 INR 0.94 (0.8-1.2) 01/10/25 13:23 APTT 61.1 SECONDS (23.9-36.7) H 01/12/25 09:05 Sodium 140 mmol/L (136-145) 01/11/25 04:36 Potassium 4.7 mmol/L (3.5-5.1) 01/11/25 04:36 Chloride 104 mmol/L (98-107) 01/11/25 04:36 Carbon Dioxide 26 mmol/L (22-29) 01/11/25 04:36 Anion Gap 14.7 (5-19) 01/11/25 04:36 BUN 13 mg/dL (8-23) 01/11/25 04:36 Creatinine 0.9 mg/dL (0.7-1.2) 01/11/25 04:36 GFR Calculation Not Reportable 01/11/25 04:36 Glucose 91 mg/dL (65-115) 01/11/25 04:36 Calculated Osmolality 290 mOsm/kg (285-295) 01/11/25 04:36 Calcium 9.6 mg/dL (8.5-10.5) 01/11/25 04:36 Total Bilirubin 0.5 mg/dL (0.15-1.2) 01/10/25 13:23 AST 17 U/L (0-40) 01/10/25 13:23 ALT 18 U/L (0-41) 01/10/25 13:23 Alkaline Phosphatase 100 U/L (40-130) 01/10/25 13:23 Troponin T Baseline 14 ng/L (0-15) 01/10/25 13:23 Troponin T 120 Minute 23.96 ng/L (0-15) H 01/10/25 15:26 Delta Troponin T 9.96 ABS# (0-10) 01/10/25 15:26 Troponin T Hi Sens 6Hr 13.58 ng/L (0-15) 01/10/25 19:13 Troponin T Hi Sens 6Hr Delta -0.42 ng/L (0-12) L 01/10/25 19:13 NT-Pro-B Natriuret Pep 1148 pg/mL (0-125) H 01/10/25 13:23 Total Protein 7.5 g/dL (6.6-8.7) 01/10/25 13:23 Albumin 4.1 g/dL (3.5-5.2) 01/10/25 13:23 Globulin 3.4 g/dL (1.3-4.6) 01/10/25 13:23 Urine Color Yellow (Yellow) 01/11/25 05:12 Urine Appearance Clear (CLEAR) 01/11/25 05:12 Urine pH 6.0 (5-7) 01/11/25 05:12 Ur Specific [place] 1.037 (1.005-1.030) H 01/11/25 05:12 Urine Protein Negative (Negative) 01/11/25 05:12 Urine Glucose (UA) 3+ (Normal) H 01/11/25 05:12 Urine Ketones Trace (Negative) 01/11/25 05:12 Urine Blood Negative (Negative) 01/11/25 05:12 Urine Nitrate Negative (Negative) 01/11/25 05:12 Urine Bilirubin Negative (Negative) 01/11/25 05:12 Urine Urobilinogen 1.0 mg/dL (Negative) 01/11/25 05:12 Ur Leukocyte Esterase Negative (Negative) 01/11/25 05:12 Urine RBC 0-2 /hpf (0-2) 01/11/25 05:12 Urine WBC 0-5 /hpf (0-5) 01/11/25 05:12 Ur Squamous Epith Cells 0-5 /hpf (0-5) 01/11/25 05:12 Amorphous Sediment Not Reportable 01/11/25 05:12 Urine Bacteria None seen /hpf (NONE) 01/11/25 05:12 Hyaline Casts 0-4 /lpf H 01/11/25 05:12 Urine Sperm 1+ /hpf 01/11/25 05:12 Vitals Last Vital Signs Temp 98.5 F 01/12/25 07:45 Pulse 49 L 01/12/25 07:45 Resp 14 01/12/25 07:45 BP 132/73 01/12/25 07:45 Pulse Ox 92 01/12/25 07:45 O2 Del Method Room Air 01/12/25 07:45 Discharge Plan Discharge Patient Disposition: Home Condition: Stable Prescriptions: Continued cholecalciferol (vitamin D3) 2,000 unit tablet 2,000 unit PO DAILY@0700 aspirin [Adult Low Dose Aspirin] 81 mg tablet,delayed release (DR/EC) 81 mg PO DAILY Centrum Silver Ultra Men's 300-600-300 mcg tablet 1 tab PO DAILY nitroglycerin [Nitrostat] 0.4 mg tablet, sublingual 0.4 mg sublingual Q5M PRN (Reason: chest pain) Qty: 50 3RF Rx Instructions: do not exceed 3 doses per episode Jardiance 10 mg tablet 10 mg PO DAILY Qty: 30 5RF sacubitril-valsartan 49-51 mg tablet 1 tab PO BID Qty: 180 3RF tamsulosin 0.4 mg Capsule 0.4 mg PO DAILY rosuvastatin 20 mg Tablet 20 mg PO DAILY tramadol 50 mg Tablet 50 mg PO QID PRN (Reason: Pain) Discontinued metoprolol succinate 25 mg tablet extended release 24 hr 25 mg PO DAILY Discharge Orders: Discharge Order (Routine); Ordered 01/12/25 Ordered By: Obey Lacy Other Ambulatory Orders: MCT/Event Monitor 30 Days (Routine) Timeframe: 1 Day Facility: [facility] - Location: Radiology Ordered By: Pernell Townsend Referrals: nahid [Other] Bertha Beyer FNP [Primary Care Provider, Nurse Practitioner] - 01/23/25 9:30 am Cory Shrestha MD [Referring] Referral Note: aortic valvle replacement, syncope Discharge Diet: Cardiac Discharge Activity: Resume usual activity Patient Instructions: Chest Pain (DC), Aortic Stenosis (DC), Decision Aid for Stable Ischemic Heart Disease (GEN), Shortness of Breath (DC), Transesophageal Echocardiogram (DC), Opioid Safety Discharge Attestations Time Spent in Discharge Care*: greater than 30 min Quality Metrics Clinical Quality Measures [ No reported AMI, CVA or VTE this stay] Coding Level of Care Code 38725 Total time (in minutes) for Discharge: 45 Diagnoses Atrial thrombus I51.3 Aortic stenosis I35.0 Cardiac valve disease etiology: nonrheumatic Ischemic cardiomyopathy I25.5 Congestive heart failure I50.9 Hypertension I10
[2025-01-12 12:13] VITALS: BP 120/90; PULSE 96; O2SAT 95
--- NOTE | 2025-01-12 12:22 | PC.NURSE ---
Applied event monitor Discharge papers provided to pt. Instructed pt to monitor his heart rate at home twice a day, if any chest pain,palpitations,fluttering or shortness of breath at home, not to exert too much due to passing out, to take it easy at home, to call [address] yu's clinic. Pt stated he has an appointment in [place] [facility]/ Dr Batista for referral on possible valve replacement.
--- NOTE | 2025-01-12 12:30 | PC.NURSE ---
Referral for Dr. Cory Shrestha was scheduled for patient- due to patient not wanting to go to [place]. As well as patient already having an appointment with Dr. Ervin @ [facility].
== END 2025-01-12 12:14 | disposition home health service (06) | DRG 307 ==
LOC: ER 14:44 → CSU 17:03
PROVIDERS: Emergency Medicine; Admitting Provider Family Medicine; Emergency Provider Family Medicine; PCP Nurse Practitioner; Visit Provider Family Medicine
DX: I08.0 Rheumatic disorders of both mitral and aortic valves (principal); I50.22 Chronic systolic (congestive) heart failure; R55 Syncope and collapse; I25.5 Ischemic cardiomyopathy; I11.0 Hypertensive heart disease with heart failure; I25.10 Atherosclerotic heart disease of native coronary artery without angina pectoris; E78.5 Hyperlipidemia, unspecified; S20.212A Contusion of left front wall of thorax, initial encounter; W18.30XA Fall on same level, unspecified, initial encounter; M48.061 Spinal stenosis, lumbar region without neurogenic claudication; H91.90 Unspecified hearing loss, unspecified ear; Z79.82 Long term (current) use of aspirin; Z79.84 Long term (current) use of oral hypoglycemic drugs; Z79.891 Long term (current) use of opiate analgesic; Z95.1 Presence of aortocoronary bypass graft; Z87.891 Personal history of nicotine dependence; Z95.2 Presence of prosthetic heart valve
CPT/HCPCS: 36415; 70450; 70486; 71045; 71275; 80048; 80053; 81001; 83880; 84484; 85025; 85610; 85730; 93005; 93306; 93312; 93320; 93325; 94664; 96365; 96375; 96376; 97161; 99285; J1644; J2371; J2470; J2704; J9999

== ENCOUNTER 2025-08-13 11:19 | Emergency (ER) | payer OTHER, SELFPAY ==
--- NOTE | 2025-08-13 11:10 | XRR_ITS ---
PROCEDURE INFORMATION: Exam: XR Chest Exam date and time: 08/13/2025 11:36 AM Age: 75 years old Clinical indication: Other: Weakness; Prior surgery; Surgery date: 6+ months; Surgery type: Cabg TECHNIQUE: Imaging protocol: Radiologic exam of the chest. Views: 1 view. COMPARISON: CT angio chest PE protcl [id number] 01/10/2025 2:53 PM FINDINGS: Lungs: Lungs are clear bilaterally. Pleural spaces: No pleural effusion. No pneumothorax. Heart/Mediastinum: Stable mild enlargement of the cardiac silhouette. Mediastinal contours are unremarkable. Vasculature: Stable vascular calcifications in the aorta. Bones/joints: Poststernotomy changes in the chest. Bones are diffusely osteopenic. Degenerative changes in the spine and shoulders. Osseous findings are stable. XR/XR chest 1V portable [id number] IMPRESSION: 1. No acute cardiopulmonary process. 2. Incidental/nonacute findings are listed in the report.
--- NOTE | 2025-08-13 11:10 | ECG_ITS ---
[facility] Date: 2025-08-13 Pat Name: Huber Green Department: Room: Gender: Male Developer Support Engineer: : [id number] Requested By: Stuart Talavera Order Number: [id number] Reading MD: PATTIE AGUIRRE Measurements Intervals [place] Rate: 76 P: 24 [place]: 200 QRS: -44 QRSD: 119 T: -8 QT: 416 QTc: 470 Interpretive Statements SINUS RHYTHM LEFT AXIS DEVIATION [QRS AXIS < -30] MODERATE INTRAVENTRICULAR CONDUCTION DELAY [110+ ms QRS DURATION] Compared to ECG 01/10/2025 19:14:18 Intraventricular conduction delay now present Electronically Signed On 08-13-2025 22:53:51 LABORATORY AIDE by PATTIE AGUIRRE [email or web address]
[2025-08-13 11:20] VITALS: BP 141/109; PULSE 79; RESP 17; TEMP 36.5; O2SAT 94; BMI 26.4
--- NOTE | 2025-08-13 11:23 | CTR_ITS ---
PROCEDURE INFORMATION: Exam: CT Head Without Contrast Exam date and time: 08/13/2025 11:46 AM Age: 75 years old Clinical indication: Syncope and collapse TECHNIQUE: Imaging protocol: Computed tomography of the head without contrast. Sagittal and coronal reformatted images were also reviewed. Radiation optimization: All CT scans at this facility use at least one of these dose optimization techniques: automated exposure control; mA and/or kV adjustment per patient size (includes targeted exams where dose is matched to clinical indication); or iterative reconstruction. COMPARISON: CT head wo con* [id number] 01/10/2025 2:48 PM RADIATION DOSE METRICS: Total DLP (mGy-cm): 1153.88 FINDINGS: Brain: No acute intracranial hemorrhage. No acute infarct. No intra-axial or extra-axial masses. Hicks-white matter differentiation is preserved. No cerebral edema. No extra-axial fluid collections. No midline shift. No evidence for Chiari 1 malformation. Stable mild atrophy of the brain parenchyma. Stable moderately decreased attenuation in the deep white matter, consistent with moderate chronic microangiopathic change. Cerebral ventricles: No hydrocephalus. Paranasal sinuses: Paranasal sinuses are clear. Mastoid air cells: Mastoid air cells are clear bilaterally. Orbital cavities: Globes and lenses, extraocular muscles, and optic nerves are intact bilaterally. No acute intraorbital abnormality. Bones: Unremarkable. No acute fracture. Soft tissues: No acute abnormality of the extracranial soft tissues. Vasculature: Stable atherosclerotic calcifications in the visualized arteries. CT/CT head wo con* [id number] IMPRESSION: 1. No acute abnormality of the brain. 2. Stable mild atrophy of the brain parenchyma. 3. Stable moderate chronic white matter microangiopathic change.
--- OUTSIDE RECORDS SUMMARY | 2025-08-13 11:26 | XMS_ITS | Encounter Summary ---
Author Organization [facility] Address [address] [place] [address] Care Team Providers Care Feed Adviser Name Role Phone Unavailable Primary Care Provider Unavailabl e Encounter Details Date Type Department Care Team (Late st Contact Info) Description 08/07/2025 Abstract [facility] [address] [place] [phone] Bertha Beyer, REMELT PAN TANK OPERATOR [address] [place] [address] Social History Tobacco Use Types Packs/Day Years Used Date Smoking Tobacco: Never Alcohol Use Standard Drinks/Week Comments Never 0 (1 standard drink = 0.6 oz pur e alcohol) Sex and Gender Information Value Date Recorded Sex Assigned at Not on file Legal Sex Male 2:54 PM CDT Gender Identity Not on file Sexual Orientation Not on file documented as of this encounter Plan of Treatment Upcoming Encounters Date Type Department Care Team (Late st Contact Info) Description 09/14/2025 3:15 PM PULMONARY PHYSICIAN Office Visit [facility] [address] [place] [phone] Joaquim Germain MD [address] [place] [phone] Vicente Haney MBBS [address] [place] [phone] documented as of this encounter Visit Diagnoses Not on filedocumented in this encounter
--- OUTSIDE RECORDS SUMMARY | 2025-08-13 11:26 | XMS_ITS | Encounter Summary ---
Author Organization [facility] Address [address] [place] [address] Care Team Providers Care Tobacco Stripper Hand Name Role Phone Unavailable Primary Care Provider Unavailabl e Encounter Details Date Type Department Care Team (Late st Contact Info) Description 08/08/2025 External Device Data [facility] ABSTRACTION Provider, Abstract NO ADDRESS ON FILE Social History Tobacco Use Types Packs/Day Years [...] st Contact Info) Description 09/14/2025 3:15 PM CONTRACT TECHNICIAN Office Visit [facility] [address] [place] [phone] Joaquim Germain MD [address] [place] [phone] Vicente Haney MBBS [address] [place] [phone] documented as of this encounter Visit Diagnoses Not on filedocumented in this encounter
--- OUTSIDE RECORDS SUMMARY | 2025-08-13 11:26 | XMS_ITS | Clinical Summary ---
Author Organization [facility] Address [address] [place] [address] Phone Care Team Providers Care Personal Carer Name Role Phone Unavailable Primary Care Provider Unavailabl e Allergies Active Allergy Reactions Criticality Noted Date Comments Aspirin Other (See Comments) Medium 01/29/2022 Stomach bleeding Atorvastatin Unknown 01/29/2022 Bee Venom Protein (Honey Bee) Unknown 01/29/2022 Medications traMADoL (ULTRAM) 50 mg tablet Take by mouth every 6 hours as needed for Pain. Takes 4x daily Active Vit C-Vit V-Rspday-ZiSs-L utein (PRESERVISION) 226 mg-200 unit -0.8 mg-5 mg Capsule Take 1 Capsule by mouth daily. Active vitamin E 400 unit capsule Take 400 Units by mouth daily. Active [place] Fruit 450 mg Capsule Take 2 Capsules by mouth. Active cholecalciferol , Vitamin D3, (VITAMIN D3) 25 mcg (1,000 unit) Capsule Take by mouth daily. Active aspirin (ECOTRIN EC) 81 mg Tablet, Delayed Release (E.C.) Take 1 Tablet (81 mg) by mouth daily. 90 Tablet 2 Active sacubitriL-vals jesus (ENTRESTO) 49-51 mg Tablet Take 1 Tablet by mouth 2 times daily. 3 Active ketoconazole (NIZORAL) 2 % Cream APPLY SPARINGLY TO AFFECTED AREA(S) TWICE A DAY (EXTERNAL USE ONLY) 3 Active multivit with minerals/lutein (MULTIVITAMIN 50 PLUS ORAL) TAKE 1 CAP/TAB BY MOUTH TWICE A DAY WITH MEAL(S) FOR EYE HEALTH. AVOID IF YOU HAVE PEANUT ALLERGY. 2 Active rosuvastatin (CRESTOR) 20 mg tablet Take 1 Tablet (20 mg) by mouth daily. 100 Tablet 3 3 Active empagliflozin (JARDIANCE) 10 mg tablet TAKE ONE TABLET BY MOUTH ONCE A DAY 90 Tablet 3 3 Active metoprolol tartrate (LOPRESSOR) 25 mg tablet Take 12.5 mg by mouth 2 times daily. Taking 0.5 tab in AM and 0.25 in PM 5 Active tamsulosin (FLOMAX) 0.4 mg capsule Take 0.4 mg by mouth. 5 Active loratadine (CLARITIN ORAL) Take by mouth daily. Active Active Problems Problem Noted Date Diagnosed Date Abnormal cardiovascular stress test 05/11/2023 S/P CABG x 4 03/05/2022 Aortic stenosis, moderate 02/19/2022 Chronic systolic heart failure 01/31/2022 Cardiac LV ejection fraction 20-25% 01/31/2022 Mitral regurgitation 01/31/2022 ASHD (arteriosclerotic heart disease) 01/29/2022 Encounters Date Type Department Care Team Description 08/08/2025 External Device Data [facility] ABSTRACTION Provider, Abstract 08/07/[address] [place] [id number] Bertha Beyer, LAMAR 06/07/2025 External Device Data [facility] ABSTRACTION Provider, Abstract from Last 3 Months Social History Tobacco Use Types Packs/Day Years Used Date Smoking Tobacco: Never Tobacco Cessation:Counseling Given: Not Answered Alcohol Use Standard Drinks/Week Comments Never 0 (1 standard drink = 0.6 oz pur e alcohol) Sex and Gender Information Value Date Recorded Sex Assigned at Not on file Legal Sex Male 2:54 PM CDT Gender Identity Not on file Sexual Orientation Not on file Last Filed Vital Signs Vital Sign Reading Time Taken Comments Blood Pressure 122/86 01/24/2025 12:40 PM CDT Pulse 54 01/24/2025 12:40 PM CDT Temperature 36.2 C (97.2 F) 03/08/2022 7:21 AM CDT Respiratory Rate 20 03/08/2022 7:21 AM CDT Oxygen Saturation 97% 03/26/2022 12:12 PM CDT Inhaled Oxygen Concentration - - Weight 89.5 kg (197 lb 6.4 oz) 01/24/2025 12:40 PM CDT Height 177.8 cm (5' 10 ) 01/24/2025 12:40 PM CDT Body Mass Index 28.32 01/24/2025 12:40 PM CDT Plan of Treatment Upcoming Encounters Date Type Department Care Team (Late st Contact Info) Description 09/14/2025 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 Office Visit [facility] [address] [facility] [address] [place] [id number] Joaquim Germain MD [address] [facility] [address] [place] [id number] Vicente Haney MBBS [address] [facility] [address] [place] [id number] Health Maintenance Due Date Last Done Comments COLORECTAL SCREENING 1995 Colorectal Cancer Screening 1995 FIT-DNA Q 3 years 1995 FIT/FOBT Q 1 year 1995 Flex Sig/CT Colonography Q 5 years 1995 ZOSTER VACCINE (1 of 2) 2000 PNEUMOCOCCAL VACCINE 50+ YEA RS (2 of 2 - PPSV23, PCV20, or PCV21) 03/11/2019 01/14/2019 INFLUENZA VACCINE (#1) 2025 , 07/28/2022, 05/16/2020, Additional history exists COVID-19 Vaccine (5 - 2024-2 6 season) 2025 06/03/2023, 07/16/2021, 10/11/2020, Additional history exists RSV VACCINE (60+ or ) (1 - 1-dose 75+ series) 2025 DTAP/TDAP/TD VACCINES (2 - T d or Tdap) 01/14/2029 01/14/2019, 08/17/2001 Medical Devices Implanted Type Area Records Analysis Manager Device Identifier Shelf Expiration Date Model / Serial / Lot Clip Ligating Horizon Red [id number] - [facility] - [id number] Implanted:Qty: 1 on 03/04/2022 by Ishaan Zheng MD at [facility] Clip N/A: Heart [employer] [id number] 08/26/2026 [id number] / / [id number] Clip Ligating Horizon Red [id number] - [facility] - [id number] Implanted:Qty: 1 on 03/04/2022 by Ishaan Zheng MD at [facility] Clip N/A: Heart [employer] [id number] 08/26/2026 / / [id number] Clip Ligating Horizon Med Ti 105691 - [place]sc - [id number] Implanted:Qty: 1 on 03/04/2022 by Ishaan Zheng MD at [facility] Clip N/A: Heart TELEFLEX- WECK CLOSURE SYS [id number] 09/16/2026 [id number] / / [id number] Clip Ligating Horizon Red [id number] - [facility] - [id number] Implanted:Qty: 1 on 03/04/2022 by Ishaan Zheng MD at [facility] Clip N/A: Heart [employer] [id number] 07/21/2026 / / [id number] Clip Ligating Horizon Med Ti [id number] - [facility] - [id number] Implanted:Qty: 1 on 03/04/2022 by Ishaan Zheng MD at [facility] Clip N/A: Heart TELEFLEX- WECK CLOSURE SYS [id number] 08/19/2026 / / [id number] Clip Ligating Horizon Red [id number] - [place]sc - [id number] Implanted:Qty: 1 on 03/04/2022 by Ishaan Zheng MD at [facility] Clip N/A: Heart [employer] [id number] 07/21/2026 / / [id number] Hemostatic Surgifoam Sz100 1973 - [id number] Implanted:Qty: 1 on 03/04/2022 by Ishaan Zheng MD at [facility] Hemostatic N/A: Heart [employer]- [employer] [id number] 09/26/20251973 247827 Hemostatic Surgifoam Sz100 1973 - [id number] Implanted:Qty: 1 on 03/04/2022 by Ishaan Zheng MD at [facility] Hemostatic N/A: Heart [employer]- [employer] 05/30/20251973 [id number] Marker Anastomark Coronry Ss Distal W/ Collins Amgm-D - [id number] Implanted:Qty: 1 on 03/04/2022 by Ishaan Zheng MD at [facility] Other N/A: Heart [employer] 09/16/2024 AMGM-D / / [id number] Marker Anastomark Coronry Ss Distal W/ Collins Amgm-D - [id number] Implanted:Qty: 1 on 03/04/2022 by Ishaan Zheng MD at [facility] Other N/A: Heart [employer] 09/16/2024 AMGM-D / / [id number] Marker Anastomark Coronry Ss Distal W/ Collins Amgm-D - [id number] Implanted:Qty: 1 on 03/04/2022 by Ishaan Zheng MD at [facility] Other N/A: Heart [employer] 09/16/2024 AMGM-D / / [id number] Insurance MEDICARE PART A AND B RX [employer] RX Member Subscriber Plan / Payer (Ef fective for All Dates) Name:Huber Green R Relation to Subscriber:Self Name:Huber Green Payer ID:Not on file Type:RX Commercial Address: [facility] Commercial * Guarantor: [employer]) Account Type Relation to Patient Date of Phone Billing Address [facility] Other DEFAULT ADDRESS [address] [employer] Member Subscriber Plan / Payer (Ef fective 2005-Present) Name:Huber Green R Relation to Subscriber:Self Name:Huber Green Payer ID:Not on file Group ID:Not on file Type:SD Address: [place] [id number] [facility] [employer] Advance Directives For more information, please contact: [phone] Documents on File Type Date Recorded 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
[2025-08-13 11:32] LABS: Hematocrit 46.2 % (37-53); Hemoglobin 15.50 g/dL (11.27-16.99); Mean Corpuscular HGB Conc 33.5 g/dL (30-55); Mean Corpuscular Hemoglobin 30.1 pg (27-33); Mean Corpuscular Volume 89.7 fl (82-101); Nucleated Red Blood Cells % 0 %; Platelet Count 356 10^3/cmm (157-399); Red Blood Count 5.15 10^6/uL (3.85-5.65); White Blood Count 9.17 10^3/uL (3.29-11.43)
--- NOTE | 2025-08-13 11:34 | W.ED.SYNCOPE ---
HPI - Syncope General: Chief Complaint: Syncope Stated Complaint: near syncope Time Seen by Provider: 08/13/25 11:19 Source: patient and EMS Mode of arrival: EMS Limitations: no limitations History of Present Illness: 75-year-old male states that he is at [place] states he had stood up started to feel diaphoretic and nauseous and did vomit then had a syncopal event. States he had some mild weakness since then he denies any headache or chest pain. Denies history of syncope in the past. He denies any worse improving factors states he does feel slightly improved currently Related Data Home Medications ?Medication ?Instructions ?Recorded ?Confirmed cholecalciferol (vitamin D3) 50 2,000 unit PO DAILY@0700 09/16/19 01/11/25 mcg (2,000 unit) tablet aspirin 81 mg tablet,delayed 81 mg PO DAILY 05/05/22 01/11/25 release (Adult Low Dose Aspirin) fzkihnvf-qv-ymqyz 300 mcg-K 60 1 tab PO DAILY 05/05/22 01/11/25 mcg-lycop 600 mcg-lutein 300 mcg tablet (Centrum Silver Ultra Men's) rosuvastatin 20 mg tablet 20 mg PO DAILY 08/25/24 01/11/25 tramadol 50 mg tablet 50 mg PO QID PRN Pain 08/25/24 01/11/25 tamsulosin 0.4 mg capsule 0.4 mg PO DAILY 01/11/25 01/11/25 Previous Rx's ?Medication ?Instructions ?Recorded nitroglycerin 0.4 mg sublingual 0.4 mg sublingual Q5M PRN chest 01/23/22 tablet (Nitrostat) pain #50 tabs empagliflozin 10 mg tablet 10 mg PO DAILY #30 tabs 12/10/22 (Jardiance) sacubitril 49 mg-valsartan 51 mg 1 tab PO BID #180 tabs 12/10/22 tablet metoprolol succinate 25 mg 12.5 mg (1/2 x 25 mg) PO DAILY #90 01/13/25 tablet,extended release 24 hr tabs Allergies Allergy/AdvReac Type Severity Reaction Status Date / Time bee venom protein (honey bee) Allergy Unknown Verified 11/03/22 08:57 Review of Systems Card: Reports: syncope PFS ED PFSH: Medical History (Updated 08/13/25 @ 12:36 by Stuart Talavera MD) Ischemic cardiomyopathy Congestive heart failure Family history of prostate cancer Hypertension Hyperlipidemia Hearing loss Left inguinal pain Surgical History (Updated 01/13/25 @ 00:00 by ALBAN Poole) S/P CABG x 4 Family History Father CAD (coronary artery disease), Onset Age: 55 Cancer Grandmother CAD (coronary artery disease) Mother Diabetes Stroke Family/Other Diabetes Denies family history of Clotting disorder Dementia Chronic kidney disease (CKD) Suicide Anesthesia complication Bleeding disorder Lung disease Social History Smoking and tobacco/nicotine status: former use of tobacco/nicotine Second hand smoke exposure: No Alcohol intake: never Substance/Drug Use: never Adopted: No Caregiver/support person: No Lives independently: Yes Household members: spouse Housing: House Marital status: service: Yes Current occupational status: retired Current occupational exposures/hazards: No Pets and animals: No Sexually active: No Do you think of yourself as: Straight/Heterosexual Current gender identity: Male Roya/Tenriism: Druze Special roya needs: No Agree to transfusion: No Physical Exam Const: COMMON NORMALS: no acute distress, patient oriented x3 and healthy appearing HENMT: COMMON NORMALS: normocephalic and atraumatic HEAD & SCALP: normocephalic and atraumatic Eye: COMMON NORMALS: Equal, round and reactive pupils present and EOMs intact bilaterally PUPIL: Yes Equal, round and reactive pupils present Neck/C-Spine: COMMON NORMALS: full ROM and supple Chest: COMMONS NORMALS: normal inspection of the chest and normal palpation of entire chest wall Resp: COMMON NORMALS: normal respiratory effort, No retractions, No use of accessory muscles and clear to auscultation bilaterally AUSCULTATION: clear to auscultation bilaterally Cardio: COMMON NORMALS: regular rate, regular rhythm and No murmurs present (Cardio) RATE: regular rate RHYTHM: regular rhythm GI: COMMON NORMALS: Normal to inspection, nondistended, normoactive bowel sounds present, Soft to palpation, non-tender and no masses PALPATION: Yes Soft to palpation Extremity: COMMON NORMALS: normal to inspection and full ROM Neuro: COMMON NORMALS: patient oriented x3, moves all extremities and no focal motor deficits Psych: COMMON NORMALS: mental status grossly normal, Normal thought process present and cooperative THOUGHT PROCESS: Normal thought process present Skin: COMMON NORMALS: no rashes or lesions noted and no wounds GENERAL SKIN EXAM: no rashes or lesions noted Course Vital Signs: Vital signs: Vital Signs Temperature 97.7 F 08/13/25 11:20 Pulse Rate 77 08/13/25 12:00 Respiratory Rate 17 08/13/25 11:20 Blood Pressure 130/86 08/13/25 12:00 Pulse Oximetry 93 08/13/25 12:00 Oxygen Delivery Me thod Room Air 08/13/25 12:00 MDM - Syncope Medical Decision Making Patient presents here after syncopal event differential includes dehydration, arrhythmia, intracerebral hemorrhage, anemia. Patient's blood work here showed no significant abnormality he is not anemic head CT here showed no acute abnormalities he had no signs of arrhythmias chest x-ray interpreted by me which was normal. From the history is likely a vasovagal event he is felt much improved here has had no hypotension here he is stable for discharge follow-up with PCP return if worsening he understands agrees to plan. EKG interpreted 1156 normal sinus rhythm heart rate [address] elevation QRS 119 QTc 447 Medical Records I reviewed the patient's medical records. Lab Data I reviewed the patient's lab results. 08/13/25 11:27 08/13/25 11:27 Radiology Impressions Chest X-Ray 08/13/25 11:10 IMPRESSION: 1. No acute cardiopulmonary process. 2. Incidental/nonacute findings are listed in the report. Head CT 08/13/25 11:23 IMPRESSION: 1. No acute abnormality of the brain. 2. Stable mild atrophy of the brain parenchyma. 3. Stable moderate chronic white matter microangiopathic change. Laboratory Results WBC 9.17 10^3/uL (3.29-11.43) 08/13/25 11:27 RBC 5.15 10^6/uL (3.85-5.65) 08/13/25 11:27 Hgb 15.50 g/dL (11.27-16.99) 08/13/25 11:27 Hct 46.2 % (37-53) 08/13/25 11:27 MCV 89.7 fl (82-101) 08/13/25 11:27 MCH 30.1 pg (27-33) 08/13/25 11:27 MCHC 33.5 g/dL (30-55) 08/13/25 11:27 RDW 12.4 % (12.1-15.1) 08/13/25 11:27 Plt Count 356 10^3/cmm (157-399) 08/13/25 11:27 MPV 8.7 fL (7.4-10.4) 08/13/25 11:27 Neut % (Auto) 59.5 % 08/13/25 11:27 Lymph % (Auto) 31.8 % 08/13/25 11:27 [place] % (Auto) 6.4 % 08/13/25 11:27 Eos % (Auto) 1.7 % 08/13/25 11:27 Baso % (Auto) 0.4 % 08/13/25 11:27 Neut # (Auto) 5.44 10^3/uL (1.8-7.7) 08/13/25 11:27 Lymph # (Auto) 2.9 10^3/uL (0.8-4.8) 08/13/25 11:27 [place] # (Auto) 0.6 10^3/uL (0.2-0.9) 08/13/25 11:27 Eos # (Auto) 0.2 10^3/uL (0.0-0.8) 08/13/25 11:27 Baso # (Auto) 0.0 10^3/uL (0.0-0.1) 08/13/25 11:27 Nucleated RBC % (auto) 0 % 08/13/25 11:27 Nucleated RBCs # 0.0 /100WBC 08/13/25 11:27 Sodium 137 mmol/L (136-145) 08/13/25 11:27 Potassium 3.6 mmol/L (3.5-5.1) 08/13/25 11:27 Chloride 100 mmol/L (98-107) 08/13/25 11:27 Carbon Dioxide 21 mmol/L (22-29) L 08/13/25 11:27 Anion Gap 19.6 (5-19) H 08/13/25 11:27 BUN 12 mg/dL (8-23) 08/13/25 11:27 Creatinine 0.8 mg/dL (0.7-1.2) 08/13/25 11:27 GFR Calculation Not Reportable 08/13/25 11:27 Glucose 143 mg/dL (65-115) H 08/13/25 11:27 Calculated Osmolality 286 mOsm/kg (285-295) 08/13/25 11:27 Calcium 10.2 mg/dL (8.5-10.5) 08/13/25 11:27 Total Bilirubin 0.5 mg/dL (0.15-1.2) 08/13/25 11:27 AST 21 U/L (0-40) 08/13/25 11:27 ALT 21 U/L (0-41) 08/13/25 11:27 Alkaline Phosphatase 100 U/L (40-130) 08/13/25 11:27 Total Protein 8.4 g/dL (6.6-8.7) 08/13/25 11:27 Albumin 4.4 g/dL (3.5-5.2) 08/13/25 11:27 Globulin 4.0 g/dL (1.3-4.6) 08/13/25 11:27 All radiology interpretation(s) finalized by discharge Discharge Plan Discharge Patient Disposition: Home Clinical Impression: Syncope Qualifiers: Syncope type: unspecified Qualified Code(s): R55 - Syncope and collapse Condition: Stable Prescriptions: No Action cholecalciferol (vitamin D3) 2,000 unit tablet 2,000 unit PO DAILY@0700 aspirin [Adult Low Dose Aspirin] 81 mg tablet,delayed release (DR/EC) 81 mg PO DAILY Centrum Silver Ultra Men's 300-600-300 mcg tablet 1 tab PO DAILY nitroglycerin [Nitrostat] 0.4 mg tablet, sublingual 0.4 mg sublingual Q5M PRN (Reason: chest pain) Qty: 50 3RF Rx Instructions: do not exceed 3 doses per episode Jardiance 10 mg tablet 10 mg PO DAILY Qty: 30 5RF sacubitril-valsartan 49-51 mg tablet 1 tab PO BID Qty: 180 3RF metoprolol succinate 25 mg tablet extended release 24 hr 12.5 mg PO DAILY Qty: 90 1RF tamsulosin 0.4 mg Capsule 0.4 mg PO DAILY rosuvastatin 20 mg Tablet 20 mg PO DAILY tramadol 50 mg Tablet 50 mg PO QID PRN (Reason: Pain) Discharge Orders: Discharge ED (Routine); Ordered 08/13/25 Ordered By: Stuart Talavera Referrals: Bertha Beyer FNP [Primary Care Provider, Nurse Practitioner] - 4-7 days Discharge Diet: Advance as tolerated Discharge Activity: Resume usual activity Patient Instructions: Syncope (ED) Print Language: Kinyarwanda Coding Level of Care Code ED Short Filler 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
[2025-08-13] MEDS: ondansetron 2 mg/ML SDV 2 mL 4 MG IVP (11:36)
[2025-08-13 11:54] LABS: Alanine Aminotransferase 21 U/L (0-41); Albumin Level 4.4 g/dL (3.5-5.2); Alkaline Phosphatase 100 U/L (40-130); Anion Gap 19.6 (5-19); Aspartate Amino Transferase 21 U/L (0-40); Blood Urea Nitrogen 12 mg/dL (8-23); Calcium 10.2 mg/dL (8.5-10.5); Carbon Dioxide 21 mmol/L (22-29); Chloride 100 mmol/L (98-107); Globulin 4.0 g/dL (1.3-4.6); Glucose 143 mg/dL (65-115); Osmolality Calculated 286 mOsm/kg (285-295); Potassium 3.6 mmol/L (3.5-5.1); Sodium 137 mmol/L (136-145); Total Protein 8.4 g/dL (6.6-8.7)
[2025-08-13 12:00] VITALS: BP 130/86; PULSE 77; O2SAT 93
[2025-08-13 13:00] VITALS: BP 149/87; PULSE 84; O2SAT 97
[2025-08-13 13:26] VITALS: BP 149/87; PULSE 84; O2SAT 96
== END 2025-08-13 13:27 | disposition home or self-care (01) ==
PROVIDERS: Emergency Provider Emergency Medicine; PCP Nurse Practitioner
DX: R55 Syncope and collapse (principal); Z79.82 Long term (current) use of aspirin; Z87.891 Personal history of nicotine dependence; E78.5 Hyperlipidemia, unspecified; I11.0 Hypertensive heart disease with heart failure; I50.9 Heart failure, unspecified
CPT/HCPCS: 70450; 71045; 80053; 85025; 93005; 96361; 96374; 99285; J2405; J7030